=== PATIENT | female | born 1950 | race Two or more races ===

== ENCOUNTER → 2024-09-01 | Outpatient (CLI) | payer MEDICARE, MEDICAID, SELFPAY ==
--- NOTE | 2024-09-01 | XR_ITS ---
Examination: PA lateral chest 2 views TECHNIQUE: Upright PA lateral chest 2 views Exam date and time: September 01, 2024 11:25 AM Comparison 10/15/2022 INDICATIONS: Breast carcinoma diagnosis, coughing beginning 10 days ago FINDINGS: Stable blunting of the right lateral costophrenic angle Right axillary surgical clips Mild prominence left ventricle No interval pneumonia or pulmonary edema IMPRESSION: No interval pneumonia or pulmonary edema
== END | disposition home or self-care (01) ==
PROVIDERS: PCP Internal Medicine; Referring Provider Internal Medicine; Visit Provider Internal Medicine
DX: R05.9 Cough, unspecified (principal)
CPT/HCPCS: 71046

== ENCOUNTER → 2024-09-05 | Outpatient (CLI) | payer MEDICARE, MEDICAID, SELFPAY ==
[2024-09-05 11:20] LABS: Basophils % (Auto) 1 % (0-2.5); Eosinophils # (Auto) 0.2 Thou/mm3 (0.0-0.5); Eosinophils % (Auto) 3 % (0-10); Hematocrit 39.7 % (36.0-46.0); Immature Granulocytes % (Auto) 0 % (0-0); Immature Granulocytes Auto 0.01 Thou/mm3 (0.00-0.00); Lymphocytes # (Auto) 1.5 Thou/mm3 (1.0-4.8); Lymphocytes % (Auto) 26 % (10-50); Mean Corpuscular HGB Conc 32.7 g/dl (31.0-37.0); Mean Corpuscular Volume 101 fL (80-100); Monocytes # (Auto) 0.6 Thou/mm3 (0.0-0.8); Monocytes % (Auto) 10 % (0-12); Neutrophils # (Auto) 3.4 Thou/mm3 (1.8-7.7); Neutrophils % (Auto) 61 % (37-80); Nucleated Red Blood Cell % 0 /100 WBC (0); RDW Standard Deviation 57.3 fL (36.4-46.3); Red Blood Count 3.94 Miln/mm3 (4.00-5.20); White Blood Count 5.6 Thou/mm3 (3.6-11.0)
[2024-09-05 11:31] LABS: Platelet Count 56 Thou/mm3 (140-440)
[2024-09-05 11:37] LABS: Alanine Aminotransferase 34 U/L (10-49); Albumin, Serum 3.2 gm/dL (3.4-4.8); Albumin/Globulin Ratio 1.4 (1.2-2.2); Alkaline Phosphatase 147 U/L (46-116); Anion Gap 6 (7-16); Aspartate Amino Transferase 30 U/L (0-34); BUN/Creatinine Ratio 16 Ratio (12-20); Bilirubin,Total 1.5 mg/dL (0.3-1.2); Blood Urea Nitrogen 11 mg/dL (9-23); Calcium (Corrected) 9.6 mg/dL (8.5-10.1); Carbon Dioxide 28.3 mMol/L (20.0-31.0); Chloride 107 mMol/L (98-107); Creatinine (Component) 0.7 mg/dL (0.6-1.3); Globulin 2.3 gm/dL (2.3-3.5); Glucose 164 mg/dL (74-106); Osmolality,Calculated 284 (275-295); Potassium 4.9 mMol/L (3.4-5.1); Sodium 141 mMol/L (136-145); Total Protein 5.5 gm/dL (5.7-8.2); eGFR > 60 See Note
[2024-09-05 12:53] LABS: Slide Review Platelets confirmed
== END | disposition home or self-care (01) ==
LOC: SCTO 09:53
PROVIDERS: PCP Internal Medicine; Referring Provider Internal Medicine Hematology & Oncology; Visit Provider Internal Medicine Hematology & Oncology
DX: C50.311 Malignant neoplasm of lower-inner quadrant of right female breast (principal)
CPT/HCPCS: 36415; 80053; 85025

== ENCOUNTER 2024-09-08 08:52 | Outpatient (RCR) | payer MEDICARE, MEDICAID, SELFPAY | END 2024-09-26 23:59 | disposition home or self-care (01) | LOC: SCTC 08:52 | PROVIDERS: PCP Internal Medicine; Referring Provider Internal Medicine; Visit Provider Nurse Practitioner Family | DX: Z08 Encounter for follow-up examination after completed treatment for malignant neoplasm (principal); Z85.3 Personal history of malignant neoplasm of breast; Z90.11 Acquired absence of right breast and nipple; M81.0 Age-related osteoporosis without current pathological fracture; Z79.83 Long term (current) use of bisphosphonates; D69.6 Thrombocytopenia, unspecified; K74.60 Unspecified cirrhosis of liver; K76.0 Fatty (change of) liver, not elsewhere classified | CPT/HCPCS: 99212; G0463 ==

== ENCOUNTER → 2024-10-17 | Outpatient (CLI) | payer MEDICARE, MEDICAID, SELFPAY ==
[2024-10-17 10:13] LABS: Collection Type, Urine Clean Catch
[2024-10-17 10:38] LABS: Basophils # (Auto) 0.1 Thou/mm3 (0.0-0.2); Basophils % (Auto) 1 % (0-2.5); Eosinophils # (Auto) 0.2 Thou/mm3 (0.0-0.5); Eosinophils % (Auto) 3 % (0-10); Hemoglobin 12.7 g/dL (12.0-16.0); Immature Granulocytes % (Auto) 1 % (0-0); Immature Granulocytes Auto 0.03 Thou/mm3 (0.00-0.00); Lymphocytes # (Auto) 1.2 Thou/mm3 (1.0-4.8); Lymphocytes % (Auto) 24 % (10-50); Mean Corpuscular HGB Conc 33.4 g/dl (31.0-37.0); Mean Corpuscular Volume 99 fL (80-100); Monocytes # (Auto) 0.5 Thou/mm3 (0.0-0.8); Monocytes % (Auto) 9 % (0-12); Neutrophils # (Auto) 3.3 Thou/mm3 (1.8-7.7); Neutrophils % (Auto) 62 % (37-80); Nucleated Red Blood Cell % 0 /100 WBC (0); RDW Standard Deviation 54.4 fL (36.4-46.3); Red Blood Count 3.85 Miln/mm3 (4.00-5.20); White Blood Count 5.3 Thou/mm3 (3.6-11.0)
[2024-10-17 10:45] LABS: Glucose Estimated Average 157 mg/dL (80-131); Hemoglobin A1C 7.1 % Hgb (4.8-6.0)
[2024-10-17 10:48] LABS: Bilirubin,Urine Negative (Negative); Blood,Urine 2+ (Negative); Clarity,Urine Clear (Clear/Hazy); Color,Urine Yellow (Lt Yel-Yel); Glucose, Urine 4+ (Negative); Ketones,Urine Negative (Negative); Leukocyte Esterase,Urine Positive (Negative); Nitrite,Urine Negative (Negative); PH,Urine 6.5 (5.0-7.0); Protein,Urine Trace (Neg - Trace); RBC,Urine 11 /hpf (0-3); Specific Gravity,Urine 1.036 (1.001-1.035); Squamous Epithelial Cell,Urine 12 /hpf (0-5); WBC,Urine 15 /hpf (0-5)
[2024-10-17 10:55] LABS: Platelet Count 61 Thou/mm3 (140-440)
[2024-10-17 11:01] LABS: Alanine Aminotransferase 28 U/L (10-49); Albumin/Globulin Ratio 1.3 (1.2-2.2); Alkaline Phosphatase 150 U/L (46-116); Anion Gap 8 (7-16); Aspartate Amino Transferase 35 U/L (0-34); BUN/Creatinine Ratio 22 Ratio (12-20); Bilirubin,Direct 0.6 mg/dL (0.0-0.3); Bilirubin,Total 1.3 mg/dL (0.3-1.2); Blood Urea Nitrogen 13 mg/dL (9-23); Calcium 8.8 mg/dL (8.3-10.6); Calcium (Corrected) 9.6 mg/dL (8.5-10.1); Carbon Dioxide 27.4 mMol/L (20.0-31.0); Cardiac Risk Estimate 2.7 RATIO (3.7-5.6); Chloride 106 mMol/L (98-107); Cholesterol 130 mg/dL (132-200); Creatinine (Component) 0.6 mg/dL (0.6-1.3); Globulin 2.3 gm/dL (2.3-3.5); Glucose 177 mg/dL (74-106); HDL Cholesterol 48 mg/dL (40-60); LDL Cholesterol,Calculated 61 mg/dL (0-130); Osmolality,Calculated 285 (275-295); Potassium 4.9 mMol/L (3.4-5.1); Sodium 141 mMol/L (136-145); Total Protein 5.3 gm/dL (5.7-8.2); Triglycerides 103 mg/dL (30-150); eGFR > 60 See Note
[2024-10-17 11:10] LABS: Creatinine MALB Rnd Ur 96 mg/dL (30-125); Microalbumin, Random Urine < 3 mg/L (0-300)
[2024-10-17 11:43] LABS: Slide Review Platelets confirmed
== END | disposition home or self-care (01) ==
LOC: COPL 09:36
PROVIDERS: PCP Internal Medicine; Referring Provider Surgery; Visit Provider Surgery
DX: E11.9 Type 2 diabetes mellitus without complications (principal); I10 Essential (primary) hypertension; E78.5 Hyperlipidemia, unspecified; K75.81 Nonalcoholic steatohepatitis (NASH); K74.69 Other cirrhosis of liver; K76.82 Hepatic encephalopathy; K76.6 Portal hypertension
CPT/HCPCS: 36415; 80053; 80061; 81001; 82043; 82248; 82570; 83036; 85025

== ENCOUNTER → 2024-12-12 | Outpatient (CLI) | payer MEDICARE, MEDICAID, SELFPAY ==
[2024-12-12 12:29] LABS: Basophils % (Auto) 1 % (0-2.5); Eosinophils # (Auto) 0.2 Thou/mm3 (0.0-0.5); Eosinophils % (Auto) 4 % (0-10); Hemoglobin 12.5 g/dL (12.0-16.0); Immature Granulocytes % (Auto) 0 % (0-0); Immature Granulocytes Auto 0.01 Thou/mm3 (0.00-0.00); Lymphocytes % (Auto) 26 % (10-50); Mean Corpuscular HGB Conc 32.9 g/dl (31.0-37.0); Mean Corpuscular Hemoglobin 33.3 pg (25.0-35.0); Mean Corpuscular Volume 101 fL (80-100); Monocytes # (Auto) 0.4 Thou/mm3 (0.0-0.8); Monocytes % (Auto) 10 % (0-12); Neutrophils # (Auto) 2.3 Thou/mm3 (1.8-7.7); Neutrophils % (Auto) 59 % (37-80); Nucleated Red Blood Cell % 0 /100 WBC (0); RDW Standard Deviation 58.9 fL (36.4-46.3); Red Blood Count 3.75 Miln/mm3 (4.00-5.20)
[2024-12-12 12:38] LABS: Platelet Count 56 Thou/mm3 (140-440)
[2024-12-12 12:52] LABS: Alanine Aminotransferase 30 U/L (10-49); Albumin, Serum 3.2 gm/dL (3.4-4.8); Albumin/Globulin Ratio 1.5 (1.2-2.2); Alkaline Phosphatase 152 U/L (46-116); Anion Gap 6 (7-16); Aspartate Amino Transferase 44 U/L (0-34); BUN/Creatinine Ratio 19 Ratio (12-20); Bilirubin,Total 1.7 mg/dL (0.3-1.2); Blood Urea Nitrogen 13 mg/dL (9-23); Calcium 9.4 mg/dL (8.3-10.6); Carbon Dioxide 25.6 mMol/L (20.0-31.0); Chloride 113 mMol/L (98-107); Creatinine (Component) 0.7 mg/dL (0.6-1.3); Globulin 2.2 gm/dL (2.3-3.5); Glucose 183 mg/dL (74-106); Osmolality,Calculated 293 (275-295); Potassium 4.8 mMol/L (3.4-5.1); Sodium 145 mMol/L (136-145); Total Protein 5.4 gm/dL (5.7-8.2); eGFR > 60 See Note
[2024-12-12 13:03] LABS: Slide Review Platelets confirmed
== END | disposition home or self-care (01) ==
PROVIDERS: PCP Internal Medicine; Referring Provider Nurse Practitioner Family; Visit Provider Nurse Practitioner Family
DX: C50.311 Malignant neoplasm of lower-inner quadrant of right female breast (principal)
CPT/HCPCS: 36415; 80053; 85025

== ENCOUNTER 2024-12-15 15:31 | Outpatient (RCR) | payer MEDICARE, MEDICAID, SELFPAY | END 2024-12-24 23:59 | disposition home or self-care (01) | LOC: SCTC 15:31 | PROVIDERS: PCP Internal Medicine; Referring Provider Internal Medicine; Visit Provider Nurse Practitioner Family | DX: Z08 Encounter for follow-up examination after completed treatment for malignant neoplasm (principal); Z85.3 Personal history of malignant neoplasm of breast; Z90.11 Acquired absence of right breast and nipple; Z92.21 Personal history of antineoplastic chemotherapy; M81.0 Age-related osteoporosis without current pathological fracture; Z79.83 Long term (current) use of bisphosphonates; R05.3 Chronic cough; M54.50 Low back pain, unspecified; D69.6 Thrombocytopenia, unspecified; K74.60 Unspecified cirrhosis of liver | CPT/HCPCS: 99212; G0463 ==

== ENCOUNTER → 2024-12-18 | Outpatient (CLI) | payer MEDICARE, MEDICAID, SELFPAY ==
--- NOTE | 2024-12-18 10:10 | XR_ITS ---
Examination: PA lateral chest 2 views TECHNIQUE: Upright PA lateral chest 2 views Exam date and time: December 18, 2024 1051 hours INDICATIONS: Right-sided back pain chest pain several months diagnosis breast cancer FINDINGS: Mild prominence left ventricle Right axillary surgical clips Mild vascular congestion. No lobar pneumonia or pulmonary edema IMPRESSION: No lobar pneumonia or pulmonary edema
== END | disposition home or self-care (01) ==
PROVIDERS: PCP Internal Medicine; Referring Provider Nurse Practitioner Family; Visit Provider Nurse Practitioner Family
DX: R07.9 Chest pain, unspecified (principal); M54.9 Dorsalgia, unspecified; C50.311 Malignant neoplasm of lower-inner quadrant of right female breast
CPT/HCPCS: 71046

== ENCOUNTER → 2025-02-02 | Outpatient (CLI) | payer MEDICARE, MEDICAID, SELFPAY ==
[2025-02-02 10:46] LABS: Collection Type, Urine Clean Catch
[2025-02-02 11:17] LABS: Basophils % (Auto) 1 % (0-2.5); Eosinophils # (Auto) 0.2 Thou/mm3 (0.0-0.5); Eosinophils % (Auto) 4 % (0-10); Hematocrit 37.9 % (36.0-46.0); Hemoglobin 12.5 g/dL (12.0-16.0); Immature Granulocytes % (Auto) 0 % (0-0); Immature Granulocytes Auto 0.01 Thou/mm3 (0.00-0.00); Immature Reticulocyte Fraction 21.6 % (3.0-15.9); Lymphocytes # (Auto) 1.3 Thou/mm3 (1.0-4.8); Lymphocytes % (Auto) 28 % (10-50); Mean Corpuscular Hemoglobin 33.6 pg (25.0-35.0); Mean Corpuscular Volume 102 fL (80-100); Monocytes # (Auto) 0.4 Thou/mm3 (0.0-0.8); Monocytes % (Auto) 9 % (0-12); Neutrophils # (Auto) 2.6 Thou/mm3 (1.8-7.7); Neutrophils % (Auto) 58 % (37-80); Nucleated Red Blood Cell % 0 /100 WBC (0); RDW Standard Deviation 58.8 fL (36.4-46.3); Red Blood Count 3.72 Miln/mm3 (4.00-5.20); Reticulocyte % (Auto) 2.8 % (0.5-1.5); Reticulocyte Absolute Auto 104.5 Biln/L (25.0-75.0); Reticulocyte Hgb Content 35.8 pg (28.0-35.0); White Blood Count 4.5 Thou/mm3 (3.6-11.0)
[2025-02-02 11:20] LABS: Bacteria,Urine 1+; Bilirubin,Urine Negative (Negative); Blood,Urine 1+ (Negative); Clarity,Urine Clear (Clear/Hazy); Color,Urine Yellow (Lt Yel-Yel); Glucose, Urine 4+ (Negative); Ketones,Urine Negative (Negative); Leukocyte Esterase,Urine Positive (Negative); Nitrite,Urine Negative (Negative); Protein,Urine Negative (Neg - Trace); RBC,Urine 19 /hpf (0-3); Specific Gravity,Urine 1.039 (1.001-1.035); Squamous Epithelial Cell,Urine 5 /hpf (0-5); Urobilinogen,Urine Negative mg/dL (0.0-1.0); WBC,Urine 32 /hpf (0-5)
[2025-02-02 11:21] LABS: Alanine Aminotransferase 36 U/L (10-49); Albumin, Serum 3.2 gm/dL (3.4-4.8); Albumin/Globulin Ratio 1.4 (1.2-2.2); Alkaline Phosphatase 174 U/L (46-116); Anion Gap 10 (7-16); BUN/Creatinine Ratio 21 Ratio (12-20); Bilirubin,Total 1.3 mg/dL (0.3-1.2); Blood Urea Nitrogen 15 mg/dL (9-23); Calcium 9.3 mg/dL (8.3-10.6); Calcium (Corrected) 9.9 mg/dL (8.5-10.1); Cardiac Risk Estimate 2.7 RATIO (3.7-5.6); Chloride 110 mMol/L (98-107); Cholesterol 138 mg/dL (132-200); Creatinine (Component) 0.7 mg/dL (0.6-1.3); Globulin 2.3 gm/dL (2.3-3.5); Glucose 162 mg/dL (74-106); HDL Cholesterol 51 mg/dL (40-60); LDL Cholesterol,Calculated 70 mg/dL (0-130); Osmolality,Calculated 291 (275-295); Potassium 4.8 mMol/L (3.4-5.1); Sodium 144 mMol/L (136-145); Total Protein 5.5 gm/dL (5.7-8.2); Triglycerides 87 mg/dL (30-150); eGFR > 60 See Note
[2025-02-02 11:24] LABS: Folate 22.49 ng/mL (>5.38); Vitamin B12 1370 pg/mL (211-911)
[2025-02-02 11:25] LABS: Ferritin 12 ng/mL (7.3-270.7); Iron 88 mcg/dL (50-170); Percent Iron Saturation 22 % (20-55); Platelet Count 61 Thou/mm3 (140-440); Total Iron Binding Capacity 385 mcg/dL (250-425); Unsaturated Iron Binding 297 (225-295)
[2025-02-02 11:52] LABS: Glucose Estimated Average 160 mg/dL (80-131); Hemoglobin A1C 7.2 % Hgb (4.8-6.0)
[2025-02-02 12:04] LABS: Slide Review Platelets confirmed
== END | disposition home or self-care (01) ==
LOC: COPL 09:59 → SCTO 10:04
PROVIDERS: PCP Internal Medicine; Referring Provider Internal Medicine; Visit Provider Nurse Practitioner Family
DX: E11.9 Type 2 diabetes mellitus without complications (principal); I10 Essential (primary) hypertension; E78.5 Hyperlipidemia, unspecified; C50.311 Malignant neoplasm of lower-inner quadrant of right female breast
CPT/HCPCS: 36415; 80053; 80061; 81001; 82105; 82607; 82728; 82746; 83036; 83540; 83550; 85025; 85046

== ENCOUNTER 2025-02-03 10:30 | Outpatient (RCR) | payer MEDICARE, MEDICAID, SELFPAY | END 2025-02-23 23:59 | disposition home or self-care (01) | LOC: SCTC 10:30 | PROVIDERS: PCP Internal Medicine; Referring Provider Internal Medicine; Visit Provider Nurse Practitioner Family | DX: Z08 Encounter for follow-up examination after completed treatment for malignant neoplasm (principal); Z85.3 Personal history of malignant neoplasm of breast; Z90.11 Acquired absence of right breast and nipple; K74.60 Unspecified cirrhosis of liver; D69.6 Thrombocytopenia, unspecified; M54.9 Dorsalgia, unspecified | CPT/HCPCS: 99212; G0463 ==

== ENCOUNTER → 2025-03-04 | Outpatient (CLI) | payer MEDICARE, MEDICAID, SELFPAY ==
--- NOTE | 2025-03-04 09:53 | XR_ITS ---
Examination: Lumbar spine, 5 views Technique: Lumbar spine AP, lateral, coned lateral lower lumbar spine, bilateral obliques 5 views Exam date and time: March 04, 2025 0955 hours INDICATIONS: Low back pain beginning 3 months ago. FINDINGS: Suspicious for small gallstones Prominent osteopenia Diffuse facet arthropathy No lumbar fracture Diffuse lumbar degenerative disc disease, advanced L5-S1 IMPRESSION: Diffuse advanced lumbar degenerative disc disease, advanced L5-S1
[2025-03-04 11:53] LABS: Basophils # (Auto) 0.0 Thou/mm3 (0.0-0.2); Basophils % (Auto) 1 % (0-2.5); Eosinophils # (Auto) 0.2 Thou/mm3 (0.0-0.5); Eosinophils % (Auto) 4 % (0-10); Hematocrit 38.6 % (36.0-46.0); Hemoglobin 13.0 g/dL (12.0-16.0); Immature Granulocytes Auto 0.01 Thou/mm3 (0.00-0.00); Lymphocytes # (Auto) 1.2 Thou/mm3 (1.0-4.8); Lymphocytes % (Auto) 29 % (10-50); Mean Corpuscular HGB Conc 33.7 g/dl (31.0-37.0); Mean Corpuscular Hemoglobin 33.3 pg (25.0-35.0); Mean Corpuscular Volume 99 fL (80-100); Monocytes # (Auto) 0.5 Thou/mm3 (0.0-0.8); Monocytes % (Auto) 11 % (0-12); Neutrophils # (Auto) 2.3 Thou/mm3 (1.8-7.7); Neutrophils % (Auto) 55 % (37-80); Nucleated Red Blood Cell # 0.00 Thou/mm3 (0.00-0.00); Nucleated Red Blood Cell % 0 /100 WBC (0); RDW Standard Deviation 56.4 fL (36.4-46.3); Red Blood Count 3.90 Miln/mm3 (4.00-5.20); White Blood Count 4.2 Thou/mm3 (3.6-11.0)
[2025-03-04 11:54] LABS: Platelet Count 58 Thou/mm3 (140-440)
[2025-03-04 12:01] LABS: AFP Non-Pregnant 12.50 ng/mL (<8.10)
[2025-03-04 12:07] LABS: Alanine Aminotransferase 32 U/L (10-49); Albumin, Serum 3.4 gm/dL (3.4-4.8); Albumin/Globulin Ratio 1.4 (1.2-2.2); Alkaline Phosphatase 94 U/L (46-116); Anion Gap 10 (7-16); Aspartate Amino Transferase 44 U/L (0-34); BUN/Creatinine Ratio 14 Ratio (12-20); Bilirubin,Total 2.1 mg/dL (0.3-1.2); Blood Urea Nitrogen 11 mg/dL (9-23); Calcium 9.2 mg/dL (8.3-10.6); Calcium (Corrected) 9.7 mg/dL (8.5-10.1); Carbon Dioxide 24.9 mMol/L (20.0-31.0); Chloride 110 mMol/L (98-107); Creatinine (Component) 0.8 mg/dL (0.6-1.3); Globulin 2.5 gm/dL (2.3-3.5); Glucose 130 mg/dL (74-106); Osmolality,Calculated 290 (275-295); Potassium 5.0 mMol/L (3.4-5.1); Sodium 145 mMol/L (136-145); Total Protein 5.9 gm/dL (5.7-8.2); eGFR > 60 See Note
[2025-03-04 13:51] LABS: Slide Review Platelets confirmed
== END | disposition home or self-care (01) ==
LOC: CDIM 09:44 → SCTO 10:13
PROVIDERS: PCP Internal Medicine; Referring Provider Nurse Practitioner Family; Visit Provider Radiology Diagnostic Radiology
DX: M51.379 Other intervertebral disc degeneration, lumbosacral region without mention of lumbar back pain or lower extremity pain (principal); C50.311 Malignant neoplasm of lower-inner quadrant of right female breast
CPT/HCPCS: 36415; 72110; 80053; 82105; 85025

== ENCOUNTER 2025-03-05 10:31 | Outpatient (RCR) | payer MEDICARE, MEDICAID, SELFPAY | END 2025-03-26 23:59 | disposition home or self-care (01) | LOC: SCTC 10:31 | PROVIDERS: PCP Internal Medicine; Referring Provider Internal Medicine; Visit Provider Nurse Practitioner Family | DX: Z08 Encounter for follow-up examination after completed treatment for malignant neoplasm (principal); Z85.3 Personal history of malignant neoplasm of breast; D69.6 Thrombocytopenia, unspecified; K74.60 Unspecified cirrhosis of liver; K76.0 Fatty (change of) liver, not elsewhere classified; Z87.09 Personal history of other diseases of the respiratory system; M81.0 Age-related osteoporosis without current pathological fracture; M51.360 Other intervertebral disc degeneration, lumbar region with discogenic back pain only; K80.20 Calculus of gallbladder without cholecystitis without obstruction | CPT/HCPCS: 99213; G0463 ==

== ENCOUNTER → 2025-03-16 | Outpatient (CLI) | payer MEDICARE, MEDICAID, SELFPAY ==
--- NOTE | 2025-03-16 10:16 | XR_ITS ---
Examination: Abdomen sonogram, complete Date and time of exam: March 16, 2025 1033 hours INDICATIONS: Diagnosis cirrhosis. Technique: Multiple real-time grayscale transabdominal sonographic images of the abdomen have been obtained. Findings: Cholelithiasis, normal gallbladder wall. Normal common bile duct 0.4 cm Pancreatic head 2.1 cm Aorta not enlarged. Liver 13.9 cm irregular contour right lobe liver lesion 4.0 x 4.5 x 4.1 cm Normal hepatopedal portal venous flow Patent IVC Right kidney 8.7 cm cortex 1.6 cm Left kidney 10.4 cm cortex 2.1 cm Spleen 11.9 cm IMPRESSION: Cholelithiasis, negative for cholecystitis Cirrhosis, right lobe liver lesion 4.0 x 4.5 x 4.1 cm, recommend MRI abdomen liver follow-up pre and postcontrast to assess this liver lesion, differential would include primary hepatocellular carcinoma, hepatic metastasis
== END | disposition home or self-care (01) ==
PROVIDERS: PCP Internal Medicine; Referring Provider Internal Medicine; Visit Provider Internal Medicine
DX: K80.20 Calculus of gallbladder without cholecystitis without obstruction (principal); K74.60 Unspecified cirrhosis of liver; K76.9 Liver disease, unspecified; Z86.0101 Personal history of adenomatous and serrated colon polyps; Z83.719 Family history of colon polyps, unspecified
CPT/HCPCS: 76700

== ENCOUNTER → 2025-03-17 | Outpatient (CLI) | payer MEDICARE, MEDICAID, SELFPAY ==
--- NOTE | 2025-03-17 15:00 | XR_ITS ---
Examination: CT chest with intravenous contrast CT abdomen with intravenous contrast CT pelvis with intravenous contrast CT chest without intravenous contrast CT abdomen without intravenous contrast CT pelvis without intravenous contrast 2-D coronal and sagittal reconstructions Time of exam: March 17, [address] chest December 23, 2022, CT abdomen pelvis December 22, 2022 INDICATIONS: Diagnosis malignant neoplasm right inner quadrant breast, history cirrhosis, mastectomy 2017, restaging CTDI: vol (mGy) : 20.5 DLP: (mGycm): 1355 Technique: Multiple axial images of the chest, abdomen and pelvis with intravenous contrast, 3.0 mm slice thickness. Images obtained post intravenous injection Isovue 370 60 cc. 2-D sagittal and coronal reconstructions. Low dose protocols were performed. One or more of the following dose reduction techniques were used; automated exposure control, adjustment of the mA and/or KV according to patient size, use of iterative reconstruction technique. Findings: No thoracic aortic aneurysm dilatation No pulmonary artery filling defects Mild enlargement cardiac contour. No paratracheal tracheobronchial or bronchopulmonary adenopathy. No chest wall breast mass No axillary lymphadenopathy No pneumonia, pulmonary edema pulmonary nodules Cirrhosis, liver nodular in contour, mild splenomegaly Cholelithiasis No pancreatic or adrenal mass No hydronephrosis renal or ureteral calculi Aorta normal size Normal appendix No bowel obstruction No abdominal or pelvic lymphadenopathy No bladder mass Severe osteopenia Advanced disc narrowing L5-S1 IMPRESSION: No interval metastatic disease
== END | disposition home or self-care (01) ==
LOC: CCTX 14:31
PROVIDERS: Referring Provider Nurse Practitioner Family; Visit Provider Nurse Practitioner Family
DX: C50.311 Malignant neoplasm of lower-inner quadrant of right female breast (principal)
CPT/HCPCS: 71270; 74178; A4649; Q9967

== ENCOUNTER → 2025-04-01 | Outpatient (CLI) | payer MEDICARE, MEDICAID, SELFPAY ==
[2025-04-01 11:56] LABS: Basophils # (Auto) 0.0 Thou/mm3 (0.0-0.2); Basophils % (Auto) 1 % (0-2.5); Eosinophils # (Auto) 0.2 Thou/mm3 (0.0-0.5); Eosinophils % (Auto) 3 % (0-10); Hematocrit 40.1 % (36.0-46.0); Hemoglobin 13.4 g/dL (12.0-16.0); INR 1.2 (0.9-1.3); Immature Granulocytes Auto 0.02 Thou/mm3 (0.00-0.00); Immature Reticulocyte Fraction 22.0 % (3.0-15.9); Lymphocytes # (Auto) 1.0 Thou/mm3 (1.0-4.8); Lymphocytes % (Auto) 20 % (10-50); Mean Corpuscular HGB Conc 33.4 g/dl (31.0-37.0); Mean Corpuscular Hemoglobin 33.0 pg (25.0-35.0); Mean Corpuscular Volume 99 fL (80-100); Monocytes # (Auto) 0.5 Thou/mm3 (0.0-0.8); Monocytes % (Auto) 10 % (0-12); Neutrophils # (Auto) 3.3 Thou/mm3 (1.8-7.7); Neutrophils % (Auto) 66 % (37-80); Nucleated Red Blood Cell # 0.00 Thou/mm3 (0.00-0.00); Nucleated Red Blood Cell % 0 /100 WBC (0); Prothrombin Time 12.5 Seconds (9.0-12.2); RDW Standard Deviation 56.1 fL (36.4-46.3); Red Blood Count 4.06 Miln/mm3 (4.00-5.20); Reticulocyte % (Auto) 2.8 % (0.5-1.5); Reticulocyte Absolute Auto 112.1 Biln/L (25.0-75.0); Reticulocyte Hgb Content 39.2 pg (28.0-35.0); White Blood Count 5.1 Thou/mm3 (3.6-11.0)
[2025-04-01 12:08] LABS: Platelet Count 60 Thou/mm3 (140-440)
[2025-04-01 12:12] LABS: Anion Gap 10 (7-16); Blood Urea Nitrogen 14 mg/dL (9-23); Carbon Dioxide 23.9 mMol/L (20.0-31.0); Chloride 108 mMol/L (98-107); Creatinine (Component) 0.7 mg/dL (0.6-1.3); Potassium 4.4 mMol/L (3.4-5.1); Sodium 142 mMol/L (136-145)
[2025-04-01 12:13] LABS: Alanine Aminotransferase 39 U/L (10-49); Albumin, Serum 3.6 gm/dL (3.4-4.8); Albumin/Globulin Ratio 1.5 (1.2-2.2); Alkaline Phosphatase 108 U/L (46-116); Aspartate Amino Transferase 50 U/L (0-34); BUN/Creatinine Ratio 20 Ratio (12-20); Bilirubin,Total 2.0 mg/dL (0.3-1.2); Calcium 9.7 mg/dL (8.3-10.6); Calcium (Corrected) 10.0 mg/dL (8.5-10.1); Globulin 2.4 gm/dL (2.3-3.5); Glucose 138 mg/dL (74-106); LDH (Lactate Dehydrogenase) 220 U/L (120-246); Osmolality,Calculated 285 (275-295); Total Protein 6.0 gm/dL (5.7-8.2); eGFR > 60 See Note
[2025-04-01 12:19] LABS: AFP Non-Pregnant 16.80 ng/mL (<8.10); Vitamin B12 1528 pg/mL (211-911)
[2025-04-01 12:22] LABS: Ferritin 13 ng/mL (7.3-270.7); Iron 126 mcg/dL (50-170); Percent Iron Saturation 29 % (20-55); Total Iron Binding Capacity 429 mcg/dL (250-425); Unsaturated Iron Binding 303 (225-295)
[2025-04-01 13:54] LABS: Slide Review Platelets confirmed
[2025-04-07 07:40] LABS: Haptoglobin* <10 mg/dL (43-212)
== END | disposition home or self-care (01) ==
LOC: COPL 10:50
PROVIDERS: PCP Internal Medicine; Referring Provider Internal Medicine; Visit Provider Nurse Practitioner Family
DX: C50.311 Malignant neoplasm of lower-inner quadrant of right female breast (principal); K75.81 Nonalcoholic steatohepatitis (NASH); K74.60 Unspecified cirrhosis of liver; K76.6 Portal hypertension; E66.811 Obesity, class 1; Z83.719 Family history of colon polyps, unspecified; Z86.0101 Personal history of adenomatous and serrated colon polyps
CPT/HCPCS: 36415; 80053; 82105; 82607; 82728; 83010; 83540; 83550; 83615; 85025; 85046; 85610

== ENCOUNTER 2025-04-14 10:00 | Outpatient (RCR) | payer MEDICARE, MEDICAID, SELFPAY | END 2025-04-26 23:59 | disposition home or self-care (01) | LOC: SCTC 10:00 | PROVIDERS: PCP Internal Medicine; Referring Provider Internal Medicine; Visit Provider Nurse Practitioner Family | DX: Z08 Encounter for follow-up examination after completed treatment for malignant neoplasm (principal); Z85.3 Personal history of malignant neoplasm of breast; Z92.21 Personal history of antineoplastic chemotherapy; Z90.11 Acquired absence of right breast and nipple; M81.0 Age-related osteoporosis without current pathological fracture; K74.60 Unspecified cirrhosis of liver; R16.1 Splenomegaly, not elsewhere classified; K76.89 Other specified diseases of liver; Z87.09 Personal history of other diseases of the respiratory system; Z86.16 Personal history of COVID-19; M51.360 Other intervertebral disc degeneration, lumbar region with discogenic back pain only; L98.8 Other specified disorders of the skin and subcutaneous tissue | CPT/HCPCS: 99213; G0463 ==

== ENCOUNTER → 2025-06-03 | Outpatient (CLI) | payer MEDICARE, MEDICAID, SELFPAY ==
[2025-06-03 11:10] LABS: Collection Type, Urine Clean Catch
[2025-06-03 11:35] LABS: Basophils # (Auto) 0.0 Thou/mm3 (0.0-0.2); Basophils % (Auto) 1 % (0-2.5); Eosinophils # (Auto) 0.2 Thou/mm3 (0.0-0.5); Eosinophils % (Auto) 4 % (0-10); Hematocrit 39.5 % (36.0-46.0); Hemoglobin 13.0 g/dL (12.0-16.0); Immature Granulocytes Auto 0.01 Thou/mm3 (0.00-0.00); Lymphocytes # (Auto) 1.1 Thou/mm3 (1.0-4.8); Lymphocytes % (Auto) 24 % (10-50); Mean Corpuscular HGB Conc 32.9 g/dl (31.0-37.0); Mean Corpuscular Hemoglobin 33.1 pg (25.0-35.0); Mean Corpuscular Volume 101 fL (80-100); Monocytes # (Auto) 0.5 Thou/mm3 (0.0-0.8); Monocytes % (Auto) 11 % (0-12); Neutrophils # (Auto) 2.7 Thou/mm3 (1.8-7.7); Neutrophils % (Auto) 60 % (37-80); Nucleated Red Blood Cell # 0.00 Thou/mm3 (0.00-0.00); Nucleated Red Blood Cell % 0 /100 WBC (0); RDW Standard Deviation 59.6 fL (36.4-46.3); Red Blood Count 3.93 Miln/mm3 (4.00-5.20); White Blood Count 4.5 Thou/mm3 (3.6-11.0)
[2025-06-03 11:40] LABS: Glucose Estimated Average 146 mg/dL (80-131); Hemoglobin A1C 6.7 % Hgb (4.8-6.0)
[2025-06-03 11:41] LABS: Bacteria,Urine Rare; Bilirubin,Urine Negative (Negative); Blood,Urine 2+ (Negative); Color,Urine Yellow (Lt Yel-Yel); Glucose, Urine 4+ (Negative); Ketones,Urine Negative (Negative); Leukocyte Esterase,Urine Positive (Negative); Nitrite,Urine Positive (Negative); PH,Urine 6.5 (5.0-7.0); Protein,Urine Trace (Neg - Trace); RBC,Urine 21 /hpf (0-3); Specific Gravity,Urine 1.020 (1.001-1.035); Squamous Epithelial Cell,Urine 1 /hpf (0-5); Urobilinogen,Urine Negative mg/dL (0.0-1.0); WBC,Urine 228 /hpf (0-5)
[2025-06-03 11:43] LABS: Clarity,Urine Hazy (Clear/Hazy)
[2025-06-03 11:44] LABS: Platelet Count 56 Thou/mm3 (140-440)
[2025-06-03 11:46] LABS: Creatinine MALB Rnd Ur 90 mg/dL (30-125); Microalbumin Creat Ratio 31 mg/gCrea (<30); Microalbumin, Random Urine 28 mg/L (0-300)
[2025-06-03 11:54] LABS: Alanine Aminotransferase 35 U/L (10-49); Albumin, Serum 3.4 gm/dL (3.4-4.8); Albumin/Globulin Ratio 1.5 (1.2-2.2); Alkaline Phosphatase 110 U/L (46-116); Anion Gap 6 (7-16); Aspartate Amino Transferase 45 U/L (0-34); BUN/Creatinine Ratio 16 Ratio (12-20); Bilirubin,Total 1.8 mg/dL (0.3-1.2); Blood Urea Nitrogen 11 mg/dL (9-23); Calcium 9.6 mg/dL (8.3-10.6); Calcium (Corrected) 10.1 mg/dL (8.5-10.1); Carbon Dioxide 27.0 mMol/L (20.0-31.0); Cardiac Risk Estimate 2.6 RATIO (3.7-5.6); Chloride 110 mMol/L (98-107); Cholesterol 126 mg/dL (132-200); Creatinine (Component) 0.7 mg/dL (0.6-1.3); Globulin 2.2 gm/dL (2.3-3.5); Glucose 137 mg/dL (74-106); HDL Cholesterol 49 mg/dL (40-60); LDL Cholesterol,Calculated 60 mg/dL (0-130); Osmolality,Calculated 286 (275-295); Potassium 5.1 mMol/L (3.4-5.1); Sodium 143 mMol/L (136-145); Thyroid Stimulating Hormone 3.74 uIU/mL (0.55-4.78); Total Protein 5.6 gm/dL (5.7-8.2); Triglycerides 85 mg/dL (30-150); eGFR > 60 See Note
[2025-06-03 13:06] LABS: Slide Review Platelets confirmed
== END | disposition home or self-care (01) ==
LOC: COPL 10:21
PROVIDERS: PCP Internal Medicine; Referring Provider Internal Medicine; Visit Provider Internal Medicine
DX: E11.9 Type 2 diabetes mellitus without complications (principal); I10 Essential (primary) hypertension; E78.5 Hyperlipidemia, unspecified; D12.6 Benign neoplasm of colon, unspecified; K74.69 Other cirrhosis of liver; K76.6 Portal hypertension; K75.81 Nonalcoholic steatohepatitis (NASH); E66.811 Obesity, class 1; K57.30 Diverticulosis of large intestine without perforation or abscess without bleeding; Z83.719 Family history of colon polyps, unspecified; Z86.0101 Personal history of adenomatous and serrated colon polyps; D50.8 Other iron deficiency anemias; K76.82 Hepatic encephalopathy; R16.0 Hepatomegaly, not elsewhere classified
CPT/HCPCS: 36415; 80053; 80061; 81001; 82043; 82570; 83036; 84443; 85025

== ENCOUNTER → 2025-06-03 | Outpatient (CLI) | payer MEDICARE, MEDICAID, SELFPAY ==
--- NOTE | 2025-06-03 13:00 | XR_ITS ---
Examination: Breast ultrasound, unilateral, left complete Date and time of exam: June 03, 2025, 12:53 p.m. 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 Findings: 1:00 cyst 3 x 5 mm 1:00 calcification 4 x 3 mm 5:00 cyst 2 x 3 mm IMPRESSION: BI-RADS Category 2: Benign findings
--- NOTE | 2025-06-03 13:30 | XR_ITS ---
Examination: Screening digital mammography, unilateral left Computer aided detection 3-D breast Tomosynthesis, unilateral Date and time of exam: June 03, 2025, 1305 hours, compared to mammograms dating to February 07, 2021 Indication: Screening Technique: Nonmagnified MLO, CC views of the left breast to been obtained, reconstructed from 3-D Tomosynthesis images. R2 computer aided detection program utilized for evaluation of suspicious masses and/or abnormal calcifications. 3-D Tomosynthesis images obtained. Findings: The breast is heterogeneously dense, which may obscure small masses Numerous benign calcifications No interval suspicious masses Impression: BI-RADS category II Benign findings Recommend 1 year follow-up mammogram.
== END | disposition home or self-care (01) ==
LOC: CDIM 12:35
PROVIDERS: Referring Provider Nurse Practitioner Family; Visit Provider Nurse Practitioner Family
DX: Z12.31 Encounter for screening mammogram for malignant neoplasm of breast (principal); R92.322 Mammographic fibroglandular density, left breast; R92.1 Mammographic calcification found on diagnostic imaging of breast; C50.311 Malignant neoplasm of lower-inner quadrant of right female breast
CPT/HCPCS: 76641; 77063; 77067

== ENCOUNTER 2025-07-05 02:50 | Inpatient (IN) | payer MEDICARE, MEDICAID, SELFPAY ==
[2025-07-05] VITALS (198 sets, daily range): BP systolic 52–186; BP diastolic 33–99; PULSE 15–120; RESP 11–35; TEMP 34.3–37.3; O2SAT 86–100; BMI 28.3
--- NOTE | 2025-07-05 03:11 | EKG_ITS ---
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: : 1950 Requested By: Eh Mccann Order Number: [id number] Reading MD: Eh Mccann Measurements Intervals [place] Rate: 73 P: 4 TN: 123 QRS: -5 QRSD: 80 T: -7 QT: 384 QTc: 425 Interpretive Statements SINUS RHYTHM LOW QRS VOLTAGE IN PRECORDIAL LEADS [QRS DEFLECTION < 1.0 mV IN CHEST LEADS] MODERATE VOLTAGE CRITERIA FOR LVH, CONSIDER NORMAL VARIANT [MEETS CRITERIA IN ONE OF: R(aVL), S(V1), R(V5), R(V5/V6)+S(V1)] POSSIBLE ANTERIOR MYOCARDIAL INFARCTION , OF INDETERMINATE AGE [30 ms Q WAVE IN V3/V4, OR R < 0.2 mV IN V4] Compared to ECG 02/20/2019 15:14:02 Low QRS voltage now present Myocardial infarct finding now present ST (T wave) deviation no longer present /store/S0/[id number].pdf
--- NOTE | 2025-07-05 03:11 | XR_ITS ---
EXAMINATION: AP chest single view TECHNIQUE: AP portable semiupright chest single view Date and time: July 05, 2025, 0348 hours, comparison December 18, 2024 INDICATION: Chest pain shortness of breath beginning 2 days ago. FINDINGS: Mild prominence left ventricle Moderate vascular congestion Atelectasis versus mild pneumonia right base Prominent osteopenia IMPRESSION: Atelectasis versus mild pneumonia right base, clinical correlation advised
[2025-07-05] MEDS: SODIUM CHLORIDE 0.9% 1000 ML 1,000 ML 999 ML IV ×3 (03:23→11:17)
[2025-07-05 03:42] LABS: Lactate (Lactic Acid) 4.9 mMol/L (0.4-2.0)
[2025-07-05 03:53] LABS: Basophils # (Auto) 0.1 Thou/mm3 (0.0-0.2); Basophils % (Auto) 1 % (0-2.5); Eosinophils # (Auto) 0.2 Thou/mm3 (0.0-0.5); Eosinophils % (Auto) 3 % (0-10); Hematocrit 29.4 % (36.0-46.0); Hemoglobin 9.7 g/dL (12.0-16.0); Immature Granulocytes Auto 0.13 Thou/mm3 (0.00-0.00); Lymphocytes # (Auto) 3.0 Thou/mm3 (1.0-4.8); Lymphocytes % (Auto) 32 % (10-50); Mean Corpuscular HGB Conc 33.0 g/dl (31.0-37.0); Mean Corpuscular Hemoglobin 32.9 pg (25.0-35.0); Mean Corpuscular Volume 100 fL (80-100); Monocytes # (Auto) 0.6 Thou/mm3 (0.0-0.8); Monocytes % (Auto) 6 % (0-12); Neutrophils # (Auto) 5.2 Thou/mm3 (1.8-7.7); Neutrophils % (Auto) 57 % (37-80); Nucleated Red Blood Cell # 0.00 Thou/mm3 (0.00-0.00); Nucleated Red Blood Cell % 0 /100 WBC (0); Platelet Count 93 Thou/mm3 (140-440); RDW Standard Deviation 58.8 fL (36.4-46.3); Red Blood Count 2.95 Miln/mm3 (4.00-5.20); White Blood Count 9.2 Thou/mm3 (3.6-11.0)
--- NOTE | 2025-07-05 04:00 | EDNOTE_ITS ---
ED Weakness RME/HPI General Chief complaint: Weakness Stated complaint: WEAKNESS Time Seen by Provider: 07/05/25 03:00 Arrival date/time: 07/05/25 02:50 RME / HPI RME / HPI Narrative: DR. WU MAIN ED EVALUATION: Patient presenting with weakness onset approximately 1:30 AM. Son had taken serial BP measurements with gradual reduction down to the 70's systolic range. No antecedent fever, chills, cough, or URI. PMH: HLD, Cardiac Arrhythmia, Atrial Fibrillation, Hypercholesterolemia, Edema, Hypertension, Asthma, Cirrhosis, Gastroesophageal Reflux Disease, Obesity, Breast Cancer, Osteoporosis, Cataracts, Diabetes Mellitus Type 2, Anemia, Ocassional UTI PSH: Angiogram x2, Tonsillectomy, Mastectomy, Tubal Ligation and Section Allergies: NKDA Social: Non-smoker, Non-drinker, No illicit drug abuse Related Data Home Medications ?Medication ?Instructions ?Recorded ?Confirmed albuterol sulfate 90 mcg/actuation 2 puff inhalation Q 6HR PRN 04/26/16 07/06/25 aerosol inhaler (Proventil HFA) WHEEZING #0 inhalation s sitagliptin phosphate 50 mg tablet 50 mg PO QDAY #0 ta bs 09/10/17 07/06/25 (Januvia) alendronate 70 mg tablet 70 mg PO QWEEK 09/04/1806/27 lactulose 10 gram/15 mL oral 30 ml PO EVERYOTHERDAY 07/06/25 solution (Constulose) omeprazole 40 mg capsule,delayed 40 mg PO EVERYOTHERDA Y 09/04/18 07/06/25 release montelukast 10 mg tablet 10 mg PO DAILY 02/20/1906/27 atorvastatin 10 mg tablet 10 mg PO DAILY 12/22/2206/27 dapagliflozin propanediol 5 mg 5 mg PO DAILY 12/22/22 07/06/25 tablet (Farxiga) metoprolol succinate 25 mg 25 mg PO DAILY 12/22/2206/20 tablet,extended release 24 hr tamoxifen 20 mg tablet 20 mg PO DAILY 12/22/2206/27 budesonide-formoterol HFA 160 2 puff inhalation Q12H 1 09/05/24 07/06/25 mcg-4.5 mcg/actuation aerosol inhaler (Breyna) calcium carbonate 200 mg calcium 1 tab PO QDAY 5 07/06/25 (500 mg)-vitamin D3 400 unit tablet furosemide 20 mg tablet 20 mg PO .48hr 07/06/2506/27 spironolactone 50 mg tablet 50 mg PO EVERYOTHERDAY 06/2007/06/25 Allergies Allergy/AdvReac Type Severity Reaction Status Date / Time No Known Allergies Allergy Verified 12/21/22 22:56 Review of Systems Review of Systems Systems Reviewed: All systems reviewed, normal except as documented Past Medical History Past Medical History CARDIAC: Positive Cardiac Disorders (HLD), Cardiac Arrhythmia, Atrial Fibrillation, Hypercholesterolemia, Edema and Hypertension RESPIRATORY: Positive Asthma and Bronchitis GASTROINTESTINAL: Positive Gastrointestinal Disorders, Cirrhosis, Gastroesophageal Reflux Disease and Obesity REPRODUCTIVE: Positive Breast Cancer and Previous Pregnancies MUSCULOSKELETAL: Positive Osteoporosis ENT: Positive Cataracts (BILATERAL EYES) ENDOCRINE: Positive Diabetes Mellitus Type 2 HEMATOLOGIC: Positive Anemia (DURING CHEMO) and Clotting Problems OTHER HISTORY: Positive Hospitalization, Shingles, Blood Transfusions, Anesthesia Reactions, Chemotherapy, Chicken Pox, Cancer and Breast Cancer Family History FAMILY HISTORY: Positive Family Respiratory Disorders, Family Cardiac Disorders, Family Gastrointestinal Problems and Family Cancer Surgical History SURGICAL: Positive Angiogram (2016, 2022), Tonsillectomy, Mastectomy, Tubal Ligation and Section ED Exam Narrative Physical exam: GEN. APPEARANCE: The patient is alert awake oriented X-3 under no distress, lying down comfortably, does not look ill/toxic. Patient has good eye contact. Patient is able to follow simple commands. Appropriately interactive. VITALS: All vitals were reviewed and the pulse ox is 99%, which is normal according to my interpretation HEENT: Normocephalic, atraumatic and nontender. Pupils are equal and reactive. Oral mucosa is moist. NECK: Supple, nontender, no meningismus, no JVD. There is no thyromegaly and no lymphadenopathy. CHEST: Nontender on palpation no deformity and no crepitus. CARDIOVASCULAR: Heart regular rhythm, no murmur or gallop rub or extra beats. LUNGS: Clear to auscultation bilaterally with symmetrical chest rise. No laboring tachypnea or wheezing. No intercostal subcostal retraction. No rales and no rhonchi. ABDOMEN: Soft, flat, nontender to palpation, no guarding or rebound tenderness. There are no abnormal masses palpated. No pulsatile masses or bruits. Active and normal bowel sounds. EXTREMITIES: Normal inspection and palpation. No edema. No cyanosis. Patient is able to move all 4 extremities well SKIN: Warm and dry, no rashes noted. Slightly jaundiced. MUSCULOSKELETAL: No lumbar or midline bony tenderness. There is no CVA tenderness. No paraspinal muscle spasm or tenderness. NEURO: Cranial nerves II through XII grossly intact. There are no focal neurologic deficits noted. GCS is 15 PSYCHIATRIC: Patient is in normal mood and affect, cooperative. LYMPHATICS: No major lymphadenopathy noted. Course Quality Measures Current suspected stage: septic shock (LA >4 and/or hypotension) Sepsis reassessment completed at (date): 07/05/25 (0330) Sepsis reassessment completed at (time): 05:30 Possible source: unknown Blood cultures ordered: yes Antibiotic ordered: Yes Pertinent labs: 07/05/25 07/05/25 03:25 06:55 Lactic Acid 4.9 H* mMol/L 7.6 H* mMol/L (0.4-2.0) (0.4-2.0) sepsis Orders Category Date Time Status EKG (ED ONLY) *Do not use* NOW Care 07/05/25 03:11 Completed Emergency Titration Protocol Stat Care 07/05/25 05:41 Ordered Insert IV NOW Care 07/05/25 03:09 Completed EKG (ED Only) Stat Exams 07/05/25 03:11 Draft XR chest 1V portable Stat Exams 07/05/25 03:11 Completed Ammonia Stat Lab 07/05/25 05:10 Completed Blood Culture (Lab) Stat Lab 07/05/25 03:39 Results CBC Stat Lab 07/05/25 03:39 Completed CMP [Comprehensive Metabolic Panel] Stat Lab 07/05/25 03:39 Completed Hemoglobin and Hematocrit Stat Lab 07/05/25 06:55 Completed Influenza A & B Rapid Panel Stat Lab 07/05/25 07:35 Completed LDH (Lactate Dehydrogenase) Stat Lab 07/05/25 03:39 Completed LVDS Pheresis Plts [id number] Stat Lab 07/05/25 06:55 Results Lactic Acid [Lactate (Lactic Acid)] Stat Lab 07/05/25 03:25 Completed Lactic Acid, 3 HR Stat Lab 07/05/25 06:55 Completed PT [Prothrombin Time with INR] Routine Lab 07/05/25 05:10 Completed Troponin I Stat Lab 07/05/25 03:39 Completed Type and Screen Stat Lab 07/05/25 06:55 Results UA, C/S IF [Urinalysis, C/S if Indicated] Stat Lab 07/05/25 11:34 Completed Albumin Human-Kjda 25% Ivpb [Albuminex 25% Ivpb] Med 07/05/25 06:08 Discontinued 25 gm in 100 ml IV X1 Norepinephrine/D5W 8mg/250ml [Levophed in D5W 8mg/250ml Med 07/05/25 04:16 Discontinued ] 8 mg in 250 ml IV 0.05 mcg/kg/min Ondansetron Inj [Zofran Inj] Med 07/05/25 03:00 Discontinued 4 mg IVP X1 ONE Ondansetron Inj [Zofran Inj] Med 07/05/25 06:06 Discontinued 4 mg IVP X1 ONE Piper/Tazo 3.375 gm Premix [Zosyn] Med 07/05/25 04:00 Discontinued 3.375 gm in 50 ml IV X1 Sodium Chloride 0.9% 1000 ml [Ns] 1,000 ml Med 07/05/25 04:19 Discontinued IV 200 mls/hr Sodium Chloride 0.9% 1000 ml [Ns] 1,000 ml Med 07/05/25 03:11 Discontinued IV 999 mls/hr Sodium Chloride 0.9% 1000 ml [Ns] 1,000 ml Med 07/05/25 04:00 Discontinued IV 999 mls/hr Sodium Chloride 0.9% 1000 ml [Ns] 1,000 ml Med 07/05/25 04:01 Discontinued IV 999 mls/hr Sodium Chloride 0.9% 1000 ml [Ns] 1,000 ml Med 07/05/25 04:19 Discontinued IV Q10H fentaNYL INJ [Sublimaze Inj] Med 07/05/25 03:00 Discontinued 25 mcg IVP X1 ONE Vital Signs Vital signs: Vital Signs Pulse Rate 78 07/05/25 02:58 Respiratory Rate 20 07/05/25 02:58 Blood Pressure 77/43 L 07/05/25 02:58 Pulse Oximetry (%) 99 07/05/25 02:58 Oxygen Delivery Method Room Air 07/05/25 02:58 Weakness MDM Narrative MDM Narrative:: Scribe Attestation: I, Jenniffer Fontaine, am scribing for and in the presence of Dr. Thorne. Provider Notation: Although this document has been carefully reviewed, there may still be some phonetic and other typographical errors. These errors are purely grammatical due to imperfections in the software program and should not be co nstrued in any way to compromise the substance of the patient's medical care during this visit. Patient presenting with weakness onset approximately 1:30 AM. Son had taken serial BP measurements with gradual reduction down to the 70's systolic range. Please see PE findings. Laboratory markers normal WBC. Patient anemic with hemoglobin of 9.7, baseline of 13. Mild thrombocytopenia, no bandemia. Serum chemistries demonstrates elevated Lactic of 4.9. Elevated Chloride of 102 with normal renal function. Mildly elevated blood sugar of 270. Attempts to obtain urine via straight cath unsuccessful due to profound dehydration. CXR obtained normal cardiac silhouette, no definite signs of infiltrate or consolidation. Patient placed on residential monitor, and remained hypotensive with systolic blood pressure between 50 and 70, prompting further titration of Levophed upward. No obvious source of infection identified. Will consider advanced imaging of the abdomen/pelvis. Patient remained hypotenstive throughout ED course despite titration of Levophed upward. Will discuss with hospitalist for consideration of admission. Patient data External records reviewed:: [facility] previous records (Reviewed prior ED records from 12/21/22. Patient was seen for Cystitis.) and EMS form Clinical information provided by:: patient and EMS Social determinants that could affect healthcare access:: none Patient has the following chronic illnesses:: HLD, Cardiac Arrhythmia, Atrial Fibrillation, Hypercholesterolemia, Edema, Hypertension, Asthma, Cirrhosis, Gastroesophageal Reflux Disease, Obesity, Breast Cancer, Osteoporosis, Cataracts, Diabetes Mellitus Type 2, Anemia How is presenting disease/condition affected by chronic disease/condition?: exacerbated by Evaluation data The following diagnostics were reviewed and interpreted by me:: lab results, radiology exam(s) and EKG tracing(s) (EKG demonstrates sinus rhythm with rate of [address] segment changes, no ventricular ectopy, axis leftward, evidence of anterior septal wall SD, per my interpretation.) Lab and/or radiology exams considered but not ordered:: None Interpretation Summary: RADIOLOGY Chest X-Ray: Pending official radiology report. Medications / Prescriptions Medications or Prescriptions considered but not ordered:: None Medication administrations:: Medication Administration History Discontinued Medications Acetaminophen (Acetaminophen 325 Mg Tablet) 650 mg PO Q6H PRN PRN Reason: Fever >100.5 or pain 1-3 Stop: 08/04/25 07:45 Azithromycin (Azithromycin 250 Mg Tablet) 500 mg PO QDAY [facility] Stop: 07/07/25 11:14 Last Admin: 07/05/25 11:51 Dose: Not Given Documented By: SURY Non-Admin Reason: Discontinued Bumetanide (Bumetanide Inj 0.25 Mg/Ml Vial 4 Ml) 2 mg IVP QDAY ONE Stop: 07/06/25 20:05 Last Admin: 07/06/25 20:17 Dose: 2 mg Documented By: JACK Calcium Gluconate (Calcium Gluconate 10% Inj 1 Gm/10 Ml Vial) 1 gm IV X1 ONE Stop: 07/05/25 18:58 Last Admin: 07/05/25 19:36 Dose: 1 gm Documented By: LUZ MARIA Collagenase (Collagenase Oint 30 Gm Tube) 0 gm TOP QDAY [facility] Stop: 08/06/25 08:59 Dextrose (Dextrose 50%-Water Inj 50 Ml Syringe) 25 ml IV Q15MIN PRN PRN Reason: BG 50-70 responsive npo pt Stop: 08/04/25 07:50 Dextrose (Dextrose 50%-Water Inj 50 Ml Syringe) 50 ml IV Q15MIN PRN PRN Reason: BG <50 OR BG <70 & pt unresponsive Stop: 08/04/25 07:50 Dextrose (Dextrose 50%-Water Inj 50 Ml Syringe) 50 ml IVP X1 ONE Stop: 07/05/25 18:58 Last Admin: 07/05/25 19:27 Dose: 50 ml Documented By: LUZ MARIA Dextrose/Electrolytes (Electrolyte-56/D5w 1,000 Ml Bag) 1,000 ml IV PER ORDER PRN PRN Reason: UO Net negative more than 1 L Stop: 08/04/25 23:44 Etomidate (Etomidate Inj 2 Mg/Ml Vial 10 Ml) 20 mg IVP X1 ONE Stop: 07/05/25 14:05 Last Admin: 07/05/25 14:03 Dose: 20 mg Documented By: NAYELI Fentanyl Citrate (Fentanyl Cit Inj 50 Mcg/Ml Amp 2ml) 25 mcg IVP X1 ONE Stop: 07/05/25 03:01 Last Admin: 07/05/25 03:04 Dose: Not Given Documented By: DT Non-Admin Reason: Cancelled by Provider Furosemide (Furosemide Inj 10 Mg/Ml 4ml Vial) 40 mg IVP X1 ONE Stop: 07/05/25 23:39 Last Admin: 07/05/25 23:47 Dose: 40 mg Documented By: JACK Comments: VERIFIED WITH DR THAO Glucagon (Glucagon Inj 1 Mg Vial) 1 mg IM Q15MIN PRN PRN Reason: BG <70, and no IV access Sodium Chloride (Ns) 1,000 mls @ 999 mls/hr IV .Q1H1M ONE Stop: 07/05/25 04:11 Last Infusion: 07/05/25 04:42 Dose: Infused Documented By: Admin: 07/05/25 03:23 Dose: 999 mls/hr Documented By: OSMANY Piperacillin/Tazobactam/Dextrose (Zosyn) 3.375 gm in 50 mls @ 100 mls/hr IV X1 ONE; Protocol Stop: 07/05/25 04:29 Last Infusion: 07/05/25 04:45 Dose: Infused Documented By: Admin: 07/05/25 04:15 Dose: 100 mls/hr Documented By: OSMANY Sodium Chloride (Ns) 1,000 mls @ 999 mls/hr IV .Q1H1M ONE Stop: 07/05/25 05:00 Last Infusion: 07/05/25 05:15 Dose: Infused Documented By: Admin: 07/05/25 04:14 Dose: 999 mls/hr Documented By: OSMANY Sodium Chloride (Ns) 1,000 mls @ 999 mls/hr IV .Q1H1M ONE Stop: 07/05/25 05:01 Last Admin: 07/05/25 04:15 Dose: Not Given Documented By: DT Non-Admin Reason: Cancelled by Provider Norepinephrine/Dextrose (Levophed In D5w 8mg/250ml) 8 mg in 250 mls @ 6.804 mls/hr IV .Q24H PRN; Protocol PRN Reason: PER PROTOCOL Stop: 08/04/25 04:15 Last Titration: 07/07/25 05:35 Dose: 0.03 mcg/kg/min, 4.082 mls/hr Documented By: Titration: 07/07/25 05:00 Dose: 0.03 mcg/kg/min, 4.082 mls/hr Documented By: Titration: 07/07/25 04:00 Dose: 0.03 mcg/kg/min, 4.082 mls/hr Documented By: Titration: 07/07/25 03:00 Dose: 0.03 mcg/kg/min, 4.082 mls/hr Documented By: Titration: 07/07/25 02:00 Dose: 0.03 mcg/kg/min, 4.082 mls/hr Documented By: Titration: 07/07/25 01:00 Dose: 0.03 mcg/kg/min, 4.082 mls/hr Documented By: Titration: 07/07/25 00:00 Dose: 0.03 mcg/kg/min, 4.082 mls/hr Documented By: Titration: 07/06/25 23:00 Dose: 0.03 mcg/kg/min, 4.082 mls/hr Documented By: Titration: 07/06/25 22:00 Dose: 0.03 mcg/kg/min, 4.082 mls/hr Documented By: Titration: 07/06/25 21:00 Dose: 0.03 mcg/kg/min, 4.082 mls/hr Documented By: Titration: 07/06/25 20:00 Dose: 0.03 mcg/kg/min, 4.082 mls/hr Documented By: Titration: 07/06/25 19:00 Dose: 0.03 mcg/kg/min, 4.082 mls/hr Documented By: Titration: 07/06/25 18:00 Dose: 0.03 mcg/kg/min, 4.082 mls/hr Documented By: Admin: 07/06/25 17:02 Dose: 0.03 mcg/kg/min, 4.082 mls/hr Documented By: Titration: 07/06/25 17:00 Dose: Infused Documented By: Titration: 07/06/25 16:00 Dose: 0.03 mcg/kg/min, 4.082 mls/hr Documented By: Titration: 07/06/25 15:00 Dose: 0.03 mcg/kg/min, 4.082 mls/hr Documented By: Titration: 07/06/25 14:00 Dose: 0.03 mcg/kg/min, 4.082 mls/hr Documented By: Titration: 07/06/25 13:00 Dose: 0.03 mcg/kg/min, 4.082 mls/hr Documented By: Titration: 07/06/25 12:34 Dose: 0.03 mcg/kg/min, 4.082 mls/hr Documented By: Titration: 07/06/25 12:00 Dose: 0.05 mcg/kg/min, 6.804 mls/hr Documented By: Titration: 07/06/25 11:51 Dose: 0.05 mcg/kg/min, 6.804 mls/hr Documented By: Titration: 07/06/25 11:00 Dose: 0.03 mcg/kg/min, 4.082 mls/hr Documented By: Titration: 07/06/25 10:00 Dose: 0.03 mcg/kg/min, 4.082 mls/hr Documented By: Titration: 07/06/25 09:00 Dose: 0.03 mcg/kg/min, 4.082 mls/hr Documented By: Titration: 07/06/25 08:00 Dose: 0.03 mcg/kg/min, 4.082 mls/hr Documented By: Titration: 07/06/25 07:00 Dose: 0.03 mcg/kg/min, 4.082 mls/hr Documented By: Titration: 07/06/25 06:45 Dose: 0.03 mcg/kg/min, 4.082 mls/hr Documented By: Titration: 07/06/25 06:00 Dose: 0.05 mcg/kg/min, 6.804 mls/hr Documented By: Titration: 07/06/25 05:00 Dose: 0.05 mcg/kg/min, 6.804 mls/hr Documented By: Titration: 07/06/25 04:22 Dose: 0.05 mcg/kg/min, 6.804 mls/hr Documented By: Titration: 07/06/25 04:00 Dose: 0.07 mcg/kg/min, 9.525 mls/hr Documented By: Titration: 07/06/25 03:00 Dose: 0.07 mcg/kg/min, 9.525 mls/hr Documented By: Titration: 07/06/25 02:00 Dose: 0.07 mcg/kg/min, 9.525 mls/hr Documented By: Titration: 07/06/25 01:23 Dose: 0.07 mcg/kg/min, 9.525 mls/hr Documented By: Titration: 07/06/25 01:00 Dose: 0.05 mcg/kg/min, 6.804 mls/hr Documented By: Titration: 07/06/25 00:00 Dose: 0.05 mcg/kg/min, 6.804 mls/hr Documented By: Titration: 07/05/25 23:00 Dose: 0.05 mcg/kg/min, 6.804 mls/hr Documented By: Titration: 07/05/25 22:00 Dose: 0.05 mcg/kg/min, 6.804 mls/hr Documented By: Admin: 07/05/25 21:19 Dose: 0.05 mcg/kg/min, 6.804 mls/hr Documented By: Titration: 07/05/25 13:00 Dose: Infused Documented By: Titration: 07/05/25 12:00 Dose: 0.15 mcg/kg/min, 20.412 mls/hr Documented By: Titration: 07/05/25 11:30 Dose: 0.17 mcg/kg/min, 23.133 mls/hr Documented By: Titration: 07/05/25 11:15 Dose: 0.19 mcg/kg/min, 25.855 mls/hr Documented By: Titration: 07/05/25 11:10 Dose: Infused Documented By: Titration: 07/05/25 11:00 Dose: Infused Documented By: Titration: 07/05/25 10:45 Dose: Infused Documented By: Titration: 07/05/25 10:40 Dose: Infused Documented By: Titration: 07/05/25 10:30 Dose: Infused Documented By: Titration: 07/05/25 10:30 Dose: 0.29 mcg/kg/min, 39.463 mls/hr Documented By: Titration: 07/05/25 10:25 Dose: 0.31 mcg/kg/min, 42.184 mls/hr Documented By: Titration: 07/05/25 10:00 Dose: 0.33 mcg/kg/min, 44.906 mls/hr Documented By: Titration: 07/05/25 10:00 Dose: 0.35 mcg/kg/min, 47.627 mls/hr Documented By: Titration: 07/05/25 09:00 Dose: 0.37 mcg/kg/min, 50.349 mls/hr Documented By: Titration: 07/05/25 08:00 Dose: 0.37 mcg/kg/min, 50.349 mls/hr Documented By: Titration: 07/05/25 07:45 Dose: 0.35 mcg/kg/min, 47.627 mls/hr Documented By: Titration: 07/05/25 07:40 Dose: 0.33 mcg/kg/min, 44.906 mls/hr Documented By: Titration: 07/05/25 07:35 Dose: 0.31 mcg/kg/min, 42.184 mls/hr Documented By: Titration: 07/05/25 07:00 Dose: 0.33 mcg/kg/min, 44.906 mls/hr Documented By: Titration: 07/05/25 06:20 Dose: 0.31 mcg/kg/min, 42.184 mls/hr Documented By: Titration: 07/05/25 06:10 Dose: 0.31 mcg/kg/min, 42.184 mls/hr Documented By: Titration: 07/05/25 06:05 Dose: 0.31 mcg/kg/min, 42.184 mls/hr Documented By: Titration: 07/05/25 05:51 Dose: 0.29 mcg/kg/min, 39.463 mls/hr Documented By: Titration: 07/05/25 05:51 Dose: 0.29 mcg/kg/min, 39.463 mls/hr Documented By: Titration: 07/05/25 05:46 Dose: 0.25 mcg/kg/min, 34.02 mls/hr Documented By: Titration: 07/05/25 05:40 Dose: 0.25 mcg/kg/min, 34.02 mls/hr Documented By: Titration: 07/05/25 05:35 Dose: 0.17 mcg/kg/min, 23.133 mls/hr Documented By: Titration: 07/05/25 05:25 Dose: 0.15 mcg/kg/min, 20.412 mls/hr Documented By: Titration: 07/05/25 05:10 Dose: 0.13 mcg/kg/min, 17.69 mls/hr Documented By: Titration: 07/05/25 05:05 Dose: 0.13 mcg/kg/min, 17.69 mls/hr Documented By: Titration: 07/05/25 05:00 Dose: 0.13 mcg/kg/min, 17.69 mls/hr Documented By: Titration: 07/05/25 04:55 Dose: 0.13 mcg/kg/min, 17.69 mls/hr Documented By: Titration: 07/05/25 04:50 Dose: 0.13 mcg/kg/min, 17.69 mls/hr Documented By: Titration: 07/05/25 04:45 Dose: 0.11 mcg/kg/min, 14.969 mls/hr Documented By: Titration: 07/05/25 04:40 Dose: 0.09 mcg/kg/min, 12.247 mls/hr Documented By: Titration: 07/05/25 04:35 Dose: 0.07 mcg/kg/min, 9.525 mls/hr Documented By: Admin: 07/05/25 04:30 Dose: 0.05 mcg/kg/min, 6.804 mls/hr Documented By: DT Sodium Chloride (Ns) 1,000 mls @ 100 mls/hr IV Q10H PABLO Stop: 08/04/25 04:18 Last Admin: 07/05/25 07:33 Dose: Not Given Documented By: EF Non-Admin Reason: hold per md Sodium Chloride (Ns) 1,000 mls @ 200 mls/hr IV .Q5H PABLO Stop: 08/04/25 04:18 Last Infusion: 07/05/25 06:12 Dose: 0 mls/hr Documented By: Admin: 07/05/25 04:33 Dose: 200 mls/hr Documented By: OSMANY Albumin Human (Albuminex 25% Ivpb) 25 gm in 100 mls @ 100 mls/hr IV X1 ONE Stop: 07/05/25 07:07 Last Infusion: 07/05/25 07:16 Dose: Infused Documented By: Admin: 07/05/25 06:16 Dose: 100 mls/hr Documented By: OSMANY Albumin Human (Albuminex 25% Ivpb) 25 gm in 100 mls @ 100 mls/hr IV QDAY@1100 [facility] Stop: 07/08/25 10:59 Last Infusion: 07/06/25 17:53 Dose: Infused Documented By: Admin: 07/06/25 11:01 Dose: 100 mls/hr Documented By: Infusion: 07/05/25 12:43 Dose: Infused Documented By: Admin: 07/05/25 11:43 Dose: 100 mls/hr Documented By: SURY Albumin Human (Albuminex 25% Ivpb) 25 gm in 100 mls @ 100 mls/hr IV QDAY@1000 PABLO Stop: 07/08/25 09:59 Last Infusion: 07/06/25 17:53 Dose: Infused Documented By: Admin: 07/06/25 09:51 Dose: 100 mls/hr Documented By: Infusion: 07/05/25 12:09 Dose: Infused Documented By: Admin: 07/05/25 11:09 Dose: 100 mls/hr Documented By: SURY Albumin Human (Albuminex 25% Ivpb) 25 gm in 100 mls @ 100 mls/hr IV QDAY PABLO Stop: 07/08/25 08:59 Last Infusion: 07/06/25 17:53 Dose: Infused Documented By: Admin: 07/06/25 08:33 Dose: 100 mls/hr Documented By: Infusion: 07/05/25 10:26 Dose: Infused Documented By: Admin: 07/05/25 09:26 Dose: 100 mls/hr Documented By: SURY Ceftriaxone Sodium/Dextrose (Rocephin/D5w 1gm Iv Premix) 1 gm in 50 mls @ 100 mls/hr IV QDAY PABLO Stop: 07/12/25 07:58 Last Admin: 07/06/25 08:33 Dose: 100 mls/hr Documented By: Infusion: 07/05/25 09:55 Dose: Infused Documented By: Admin: 07/05/25 09:25 Dose: 100 mls/hr Documented By: SURY Octreotide Acetate 1,000 mcg/ (Sodium Chloride) 102 mls @ 5.1 mls/hr IV .Q20H PABLO; Protocol Stop: 07/10/25 04:43 Last Admin: 07/06/25 22:30 Dose: 50 mcg/hr, 5.1 mls/hr Documented By: Infusion: 07/06/25 22:30 Dose: Infused Documented By: Admin: 07/06/25 03:05 Dose: 50 mcg/hr, 5.1 mls/hr Documented By: JACK Octreotide Acetate 1,000 mcg/ (Sodium Chloride) 102 mls @ 5.1 mls/hr IV .Q20H ONE; Protocol Stop: 07/06/25 04:44 Last Infusion: 07/06/25 03:07 Dose: Infused Documented By: Admin: 07/05/25 11:09 Dose: 50 mcg/hr, 5.1 mls/hr Documented By: SURY Sodium Chloride (Ns) 1,000 mls @ 999 mls/hr IV .Q1H1M ONE Stop: 07/05/25 12:17 Last Admin: 07/05/25 11:17 Dose: 999 mls/hr Documented By: SURY Fentanyl Citrate (Sublimaze Inj 2,500 Mcg/250 Ml Bag) 2,500 mcg in 250 mls @ 2.5 mls/hr IV .Q24H PRN; Protocol PRN Reason: PER PROTOCOL Stop: 07/10/25 13:58 Last Titration: 07/07/25 05:35 Dose: 300 mcg/hr, 30 mls/hr Documented By: Titration: 07/07/25 05:00 Dose: 300 mcg/hr, 30 mls/hr Documented By: Titration: 07/07/25 04:00 Dose: 300 mcg/hr, 30 mls/hr Documented By: Titration: 07/07/25 03:00 Dose: 300 mcg/hr, 30 mls/hr Documented By: Admin: 07/07/25 02:02 Dose: 300 mcg/hr, 30 mls/hr Documented By: HV Co-signed By: ZP Titration: 07/07/25 02:02 Dose: Infused Documented By: HV Co-signed By: ZP Titration: 07/07/25 02:00 Dose: 300 mcg/hr, 30 mls/hr Documented By: Titration: 07/07/25 01:00 Dose: 300 mcg/hr, 30 mls/hr Documented By: Titration: 07/07/25 00:00 Dose: 300 mcg/hr, 30 mls/hr Documented By: Titration: 07/06/25 23:00 Dose: 300 mcg/hr, 30 mls/hr Documented By: Titration: 07/06/25 22:00 Dose: 300 mcg/hr, 30 mls/hr Documented By: Titration: 07/06/25 21:00 Dose: 300 mcg/hr, 30 mls/hr Documented By: Titration: 07/06/25 20:00 Dose: 300 mcg/hr, 30 mls/hr Documented By: Titration: 07/06/25 19:00 Dose: 300 mcg/hr, 30 mls/hr Documented By: Titration: 07/06/25 18:00 Dose: 300 mcg/hr, 30 mls/hr Documented By: Admin: 07/06/25 17:32 Dose: 300 mcg/hr, 30 mls/hr Documented By: AT Co-signed By: VL Titration: 07/06/25 17:29 Dose: Infused Documented By: AT Co-signed By: VL Titration: 07/06/25 17:00 Dose: 300 mcg/hr, 30 mls/hr Documented By: AT Co-signed By: VL Titration: 07/06/25 16:00 Dose: 300 mcg/hr, 30 mls/hr Documented By: Titration: 07/06/25 15:00 Dose: 300 mcg/hr, 30 mls/hr Documented By: Titration: 07/06/25 14:00 Dose: 300 mcg/hr, 30 mls/hr Documented By: Titration: 07/06/25 13:00 Dose: 300 mcg/hr, 30 mls/hr Documented By: Titration: 07/06/25 12:00 Dose: 300 mcg/hr, 30 mls/hr Documented By: Titration: 07/06/25 11:00 Dose: 300 mcg/hr, 30 mls/hr Documented By: Titration: 07/06/25 10:00 Dose: 300 mcg/hr, 30 mls/hr Documented By: Admin: 07/06/25 09:09 Dose: 300 mcg/hr, 30 mls/hr Documented By: AT Co-signed By: GE Titration: 07/06/25 09:09 Dose: Infused Documented By: AT Co-signed By: GE Titration: 07/06/25 09:00 Dose: 300 mcg/hr, 30 mls/hr Documented By: Titration: 07/06/25 08:00 Dose: 300 mcg/hr, 30 mls/hr Documented By: Titration: 07/06/25 07:00 Dose: 300 mcg/hr, 30 mls/hr Documented By: Titration: 07/06/25 06:00 Dose: 300 mcg/hr, 30 mls/hr Documented By: Titration: 07/06/25 05:00 Dose: 300 mcg/hr, 30 mls/hr Documented By: Titration: 07/06/25 04:00 Dose: 300 mcg/hr, 30 mls/hr Documented By: Titration: 07/06/25 03:00 Dose: 300 mcg/hr, 30 mls/hr Documented By: Titration: 07/06/25 02:00 Dose: 300 mcg/hr, 30 mls/hr Documented By: Admin: 07/06/25 01:21 Dose: 300 mcg/hr, 30 mls/hr Documented By: HV Co-signed By: ZP Titration: 07/06/25 01:21 Dose: Infused Documented By: HV Co-signed By: ZP Titration: 07/06/25 01:00 Dose: 300 mcg/hr, 30 mls/hr Documented By: Titration: 07/06/25 00:00 Dose: 300 mcg/hr, 30 mls/hr Documented By: Titration: 07/05/25 23:00 Dose: 300 mcg/hr, 30 mls/hr Documented By: Titration: 07/05/25 22:00 Dose: 300 mcg/hr, 30 mls/hr Documented By: Titration: 07/05/25 21:00 Dose: 300 mcg/hr, 30 mls/hr Documented By: Titration: 07/05/25 20:00 Dose: 300 mcg/hr, 30 mls/hr Documented By: Titration: 07/05/25 19:46 Dose: 300 mcg/hr, 30 mls/hr Documented By: Titration: 07/05/25 19:00 Dose: 250 mcg/hr, 25 mls/hr Documented By: Titration: 07/05/25 18:00 Dose: 250 mcg/hr, 25 mls/hr Documented By: Titration: 07/05/25 17:00 Dose: 250 mcg/hr, 25 mls/hr Documented By: Titration: 07/05/25 16:36 Dose: 200 mcg/hr, 20 mls/hr Documented By: Titration: 07/05/25 16:00 Dose: 100 mcg/hr, 10 mls/hr Documented By: Titration: 07/05/25 15:00 Dose: 75 mcg/hr, 7.5 mls/hr Documented By: Admin: 07/05/25 14:15 Dose: 25 mcg/hr, 2.5 mls/hr Documented By: NAYELI Co-signed By: SURY Propofol (Diprivan Ivpb) 1,000 mg in 100 mls @ 2.177 mls/hr IV .Q24H PRN; Protocol PRN Reason: PER PROTOCOL Stop: 08/04/25 13:58 Last Titration: 07/07/25 05:35 Dose: 5 mcg/kg/min, 2.177 mls/hr Documented By: Titration: 07/07/25 05:00 Dose: 5 mcg/kg/min, 2.177 mls/hr Documented By: Admin: 07/07/25 04:37 Dose: 5 mcg/kg/min, 2.177 mls/hr Documented By: JACK Co-signed By: ZP Titration: 07/07/25 04:37 Dose: Infused Documented By: HV Co-signed By: ZP Titration: 07/07/25 04:00 Dose: 5 mcg/kg/min, 2.177 mls/hr Documented By: Titration: 07/07/25 03:00 Dose: 5 mcg/kg/min, 2.177 mls/hr Documented By: Titration: 07/07/25 02:00 Dose: 5 mcg/kg/min, 2.177 mls/hr Documented By: Titration: 07/07/25 01:00 Dose: 5 mcg/kg/min, 2.177 mls/hr Documented By: Titration: 07/07/25 00:00 Dose: 5 mcg/kg/min, 2.177 mls/hr Documented By: Titration: 07/06/25 23:00 Dose: 5 mcg/kg/min, 2.177 mls/hr Documented By: Titration: 07/06/25 22:00 Dose: 5 mcg/kg/min, 2.177 mls/hr Documented By: Titration: 07/06/25 21:00 Dose: 5 mcg/kg/min, 2.177 mls/hr Documented By: Titration: 07/06/25 20:00 Dose: 5 mcg/kg/min, 2.177 mls/hr Documented By: Titration: 07/06/25 19:00 Dose: 5 mcg/kg/min, 2.177 mls/hr Documented By: Titration: 07/06/25 18:00 Dose: 5 mcg/kg/min, 2.177 mls/hr Documented By: Admin: 07/06/25 17:00 Dose: 5 mcg/kg/min, 2.177 mls/hr Documented By: AT Co-signed By: MR Titration: 07/06/25 17:00 Dose: Infused Documented By: AT Co-signed By: MR Titration: 07/06/25 16:00 Dose: 5 mcg/kg/min, 2.177 mls/hr Documented By: Titration: 07/06/25 15:00 Dose: 5 mcg/kg/min, 2.177 mls/hr Documented By: Titration: 07/06/25 14:00 Dose: 5 mcg/kg/min, 2.177 mls/hr Documented By: Titration: 07/06/25 13:00 Dose: 5 mcg/kg/min, 2.177 mls/hr Documented By: Titration: 07/06/25 12:00 Dose: 5 mcg/kg/min, 2.177 mls/hr Documented By: Titration: 07/06/25 11:51 Dose: 5 mcg/kg/min, 2.177 mls/hr Documented By: Titration: 07/06/25 11:00 Dose: 5 mcg/kg/min, 2.177 mls/hr Documented By: Titration: 07/06/25 10:00 Dose: 5 mcg/kg/min, 2.177 mls/hr Documented By: Titration: 07/06/25 09:10 Dose: 10 mcg/kg/min, 4.355 mls/hr Documented By: Titration: 07/06/25 09:00 Dose: 15 mcg/kg/min, 6.532 mls/hr Documented By: Titration: 07/06/25 08:00 Dose: 15 mcg/kg/min, 6.532 mls/hr Documented By: Titration: 07/06/25 07:00 Dose: 15 mcg/kg/min, 6.532 mls/hr Documented By: Titration: 07/06/25 06:00 Dose: 15 mcg/kg/min, 6.532 mls/hr Documented By: Titration: 07/06/25 05:00 Dose: 15 mcg/kg/min, 6.532 mls/hr Documented By: Admin: 07/06/25 04:45 Dose: 15 mcg/kg/min, 6.532 mls/hr Documented By: JACK Co-signed By: ZP Titration: 07/06/25 04:45 Dose: Infused Documented By: JACK Co-signed By: ZP Titration: 07/06/25 04:00 Dose: 15 mcg/kg/min, 6.532 mls/hr Documented By: Titration: 07/06/25 03:00 Dose: 15 mcg/kg/min, 6.532 mls/hr Documented By: Titration: 07/06/25 02:00 Dose: 15 mcg/kg/min, 6.532 mls/hr Documented By: Titration: 07/06/25 01:00 Dose: 15 mcg/kg/min, 6.532 mls/hr Documented By: Titration: 07/06/25 00:00 Dose: 15 mcg/kg/min, 6.532 mls/hr Documented By: Titration: 07/05/25 23:00 Dose: 15 mcg/kg/min, 6.532 mls/hr Documented By: Titration: 07/05/25 22:00 Dose: 15 mcg/kg/min, 6.532 mls/hr Documented By: Titration: 07/05/25 21:00 Dose: 15 mcg/kg/min, 6.532 mls/hr Documented By: Titration: 07/05/25 20:00 Dose: 15 mcg/kg/min, 6.532 mls/hr Documented By: Titration: 07/05/25 19:00 Dose: 15 mcg/kg/min, 6.532 mls/hr Documented By: Titration: 07/05/25 18:00 Dose: 15 mcg/kg/min, 6.532 mls/hr Documented By: Titration: 07/05/25 17:00 Dose: 15 mcg/kg/min, 6.532 mls/hr Documented By: Titration: 07/05/25 16:00 Dose: 15 mcg/kg/min, 6.532 mls/hr Documented By: Titration: 07/05/25 15:00 Dose: 10 mcg/kg/min, 4.355 mls/hr Documented By: Admin: 07/05/25 14:15 Dose: 5 mcg/kg/min, 2.177 mls/hr Documented By: GE Co-signed By: SURY Calcium Chloride 10 ml/ (Dextrose) 110 mls @ 110 mls/hr IV X1 ONE Stop: 07/05/25 15:49 Last Infusion: 07/06/25 08:03 Dose: Infused Documented By: Admin: 07/05/25 14:50 Dose: 110 mls/hr Documented By: SURY Tranexamic Acid (Tranexamic Acid Ivpb) 1,000 mg in 100 mls @ 200 mls/hr IV X1 ONE Stop: 07/05/25 17:14 Last Admin: 07/05/25 16:36 Dose: 200 mls/hr Documented By: SURY Vasopressin/Sodium Chloride (Vasostrict/Ns Ivpb) 20 unit in 100 mls @ 9 mls/hr IV .Q11H7M PRN; Protocol PRN Reason: PER PROTOCOL Stop: 08/04/25 16:44 Last Admin: 07/07/25 02:37 Dose: 0.03 unit/min, 9 mls/hr Documented By: Titration: 07/07/25 02:37 Dose: Infused Documented By: Titration: 07/06/25 19:00 Dose: 0.03 unit/min, 9 mls/hr Documented By: Admin: 07/06/25 15:20 Dose: 0.03 unit/min, 9 mls/hr Documented By: Titration: 07/06/25 15:09 Dose: Infused Documented By: Admin: 07/06/25 04:02 Dose: 0.03 unit/min, 9 mls/hr Documented By: Titration: 07/06/25 04:02 Dose: Infused Documented By: Titration: 07/06/25 00:00 Dose: 0.03 unit/min, 9 mls/hr Documented By: Titration: 07/05/25 23:00 Dose: 0.03 unit/min, 9 mls/hr Documented By: Titration: 07/05/25 22:00 Dose: 0.03 unit/min, 9 mls/hr Documented By: Titration: 07/05/25 21:00 Dose: 0.03 unit/min, 9 mls/hr Documented By: Titration: 07/05/25 20:00 Dose: 0.03 unit/min, 9 mls/hr Documented By: Titration: 07/05/25 19:00 Dose: 0.03 unit/min, 9 mls/hr Documented By: Titration: 07/05/25 18:00 Dose: 0.03 unit/min, 9 mls/hr Documented By: Admin: 07/05/25 17:49 Dose: 0.03 unit/min, 9 mls/hr Documented By: SURY Calcium Chloride 10 ml/ Sodium (Chloride) 110 mls @ 110 mls/hr IV X1 ONE Stop: 07/05/25 18:16 Last Admin: 07/05/25 18:01 Dose: 110 mls/hr Documented By: SURY Magnesium Sulfate (Magnesium Sulfate Ivpb) 2 gm in 50 mls @ 25 mls/hr IV X1 ONE Stop: 07/06/25 07:46 Last Infusion: 07/06/25 11:51 Dose: Infused Documented By: Admin: 07/06/25 05:55 Dose: 25 mls/hr Documented By: HV Insulin Human Lispro (Insulin Lispro (Admelog) 1 Unit/0.01 Ml Unit) 0 unit SC [facility]; Protocol Stop: 08/04/25 11:29 Last Admin: 07/06/25 08:02 Dose: Not Given Documented By: AT Non-Admin Reason: Override Medication Admin: 07/05/25 18:01 Dose: Not Given Documented By: SURY Non-Admin Reason: Per Protocol Admin: 07/05/25 11:42 Dose: 1 unit Documented By: SURY Co-signed By: QIANA Insulin Human Lispro (Insulin Lispro (Admelog) 1 Unit/0.01 Ml Unit) 0 unit SC Q6H PABLO; Protocol Stop: 08/05/25 11:59 Last Admin: 07/07/25 00:50 Dose: Not Given Documented By: JACK Non-Admin Reason: Per Protocol Admin: 07/06/25 17:48 Dose: Not Given Documented By: AT Non-Admin Reason: NPO Admin: 07/06/25 11:49 Dose: Not Given Documented By: AT Non-Admin Reason: NPO Insulin Human Regular (Insulin Hum Regular 1 Unit/0.01 Ml (Per Unit)) 5 unit IV X1 ONE Stop: 07/05/25 18:58 Last Admin: 07/05/25 19:27 Dose: 5 unit Documented By: LUZ MARIA Co-signed By: JACK Lactulose (Lactulose Syrup 20 Gm/30 Ml Udc) 10 gm PO TID [facility]; Protocol Stop: 08/04/25 13:59 Last Admin: 07/06/25 21:17 Dose: 10 gm Documented By: Admin: 07/06/25 13:51 Dose: 10 gm Documented By: Admin: 07/06/25 04:56 Dose: Not Given Documented By: LUZ MARIA Non-Admin Reason: Hold per MD THAO Admin: 07/05/25 20:43 Dose: Not Given Documented By: JACK Non-Admin Reason: OG LIS; Verified with Dr Thao Admin: 07/05/25 16:40 Dose: Not Given Documented By: SURY Non-Admin Reason: held per Morphine Sulfate (Morphine Sulf Inj 4 Mg/Ml Vial) 2 mg IVP Q2H PRN PRN Reason: PAIN SCALE 4-10(Mod-Sev Ondansetron HCl (Ondansetron Inj 2 Mg/Ml Inj 2 Ml) 4 mg IVP X1 ONE; Protocol Stop: 07/05/25 03:01 Last Admin: 07/05/25 03:04 Dose: Not Given Documented By: OSMANY Non-Admin Reason: Cancelled by Provider Ondansetron HCl (Ondansetron Inj 2 Mg/Ml Inj 2 Ml) 4 mg IVP X1 ONE; Protocol Stop: 07/05/25 06:07 Last Admin: 07/05/25 06:15 Dose: 4 mg Documented By: OSMANY Ondansetron HCl (Ondansetron Inj 2 Mg/Ml Inj 2 Ml) 4 mg IVP Q6H PRN; Protocol PRN Reason: NAUSEA OR VOMITING Stop: 08/04/25 07:45 Pantoprazole Sodium (Pantoprazole Inj 40 Mg Vial) 80 mg IVP X1 ONE Stop: 07/05/25 08:39 Last Admin: 07/05/25 09:25 Dose: 80 mg Documented By: SURY Pantoprazole Sodium (Pantoprazole Inj 40 Mg Vial) 40 mg IVP BID PABLO Stop: 08/04/25 20:59 Last Admin: 07/06/25 20:17 Dose: 40 mg Documented By: Admin: 07/06/25 08:34 Dose: 40 mg Documented By: Admin: 07/05/25 20:42 Dose: 40 mg Documented By: LUZ MARIA Rifaximin (Rifaximin 550 Mg Tablet) 550 mg PO BID PABLO Stop: 07/12/25 20:59 Last Admin: 07/06/25 20:19 Dose: 550 mg Documented By: Admin: 07/06/25 08:34 Dose: 550 mg Documented By: Admin: 07/05/25 20:42 Dose: Not Given Documented By: JACK Non-Admin Reason: OG LIS; Verified with Dr Thao Rocuronium [place] (Rocuronium Inj 10 Mg/Ml Vial 10 Ml) 80 mg IV X1 ONE Stop: 07/05/25 14:05 Last Admin: 07/05/25 14:04 Dose: 80 mg Documented By: NAYELI Co-signed By: SURY Sodium Bicarbonate (Sodium Bicarb Inj 8.4% 1 Meq/Ml 50 Ml Vial) 50 meq IV X1 ONE Stop: 07/05/25 18:53 Last Admin: 07/05/25 19:27 Dose: Not Given Documented By: LUZ MARIA Non-Admin Reason: Cancelled by Provider Sodium Bicarbonate (Sodium Bicarb Inj 8.4% 1 Meq/Ml 50 Ml Vial) 50 meq IV X1 ONE Stop: 07/05/25 18:57 Last Admin: 07/05/25 19:27 Dose: Not Given Documented By: WilmaP Non-Admin Reason: Cancelled by Provider Sodium Bicarbonate (Sodium Bicarb Inj 8.4% Syr 50 Ml Syringe) 100 ml IV X1 ONE Stop: 07/05/25 19:21 Last Admin: 07/05/25 19:26 Dose: 100 ml Documented By: LUZ MARIA Sodium Bicarbonate (Sodium Bicarb Inj 8.4% Syr 50 Ml Syringe) 50 ml IV X1 ONE Stop: 07/05/25 22:05 Last Admin: 07/05/25 22:14 Dose: 50 ml Documented By: JACK Sodium Bicarbonate (Sodium Bicarb Inj 8.4% Syr 50 Ml Syringe) 50 ml IV X1 ONE Stop: 07/06/25 21:21 Last Admin: 07/06/25 21:36 Dose: 50 ml Documented By: JACK Sodium Bicarbonate (Sodium Bicarb Inj 8.4% Syr 50 Ml Syringe) Confirm Administered Dose 50 ml IV .STK-MED ONE Stop: 07/06/25 21:34 Last Admin: 07/06/25 21:42 Dose: Not Given Documented By: WilmaP Non-Admin Reason: Override Medication See above if any Consultations Consultation(s) initiated? (list below): Yes Consultation #1 (Physician, Specialty, Details): Discussed with Dr. Perez for admission. Reviewed the patient?s HPI, PMHx, lab and/or radiology results. Discussed treatment plan. Will consult an admission to the hospitalist. Time: 05:50 Consultation #2 (Physician, Specialty, Details): Dr. Barros made aware of the patient?s HPI, PMHx, lab and/or radiology results. Discussed treatment plan. Advises consult with Dr. Obrien. Time: 06:15 Diagnosis Weakness Differential Diagnosis: acute myocardial infarction, anemia, hypoglycemia, hypothyroidism, rhabdomyolysis, sepsis and dehydration Most likely diagnosis given after review of the tests above:: Septic shock Admission Indicated Admission indicated?: indicated Explain why admission is indicated or not indicated:: Septic shock Admission Request Was there a request for admission?: Yes Admission Attestation Admission request attestation: Discussed case with [] from Hospitalist service regarding admission. Discussed patients ED course, exam findings, labs, and radiology results. The Hospitalist [agrees,declines] to accept the patient for admission. Disposition Plan Disposition Plan: Admit Critical Care Time Critical Care Time Critical Care Time: Yes Total Critical Care Time (min.): 45 Attestation: The high probability of sudden, clinically significant deterioration in the patient?s condition required the highest level of my preparedness to intervene urgently. The services I provided to this patient were to treat and/or prevent clinically significant deterioration. Services included the following: chart data review, reviewing nursing notes and/or old charts, documentation time, industrial rehabilitation consultant collaboration regarding findings and treatment options, medication orders and management, direct patient care, vital sign assessments and ordering, interpreting and reviewing diagnostic studies and lab tests. Aggregate critical care time includes only time during which I was engaged in work directly related to the patient?s care, as described above, whether at bedside or elsewhere in the Emergency Department. It did not include time spent performing other reported procedures or the services of residents, students, nurses or physician assistants. Discharge Plan Plan Patient Disposition: Admit Acute Care w/in Hospital Patient condition on transfer: Stable Problem List Clinical Impression: Septic shock
[2025-07-05 04:13] LABS: Alanine Aminotransferase 24 U/L (10-49); Albumin, Serum 2.3 gm/dL (3.4-4.8); Albumin/Globulin Ratio 1.4 (1.2-2.2); Alkaline Phosphatase 87 U/L (46-116); Anion Gap 9 (7-16); Aspartate Amino Transferase 37 U/L (0-34); BUN/Creatinine Ratio 9 Ratio (12-20); Bilirubin,Total 1.1 mg/dL (0.3-1.2); Blood Urea Nitrogen 7 mg/dL (9-23); Calcium 8.3 mg/dL (8.3-10.6); Calcium (Corrected) 9.7 mg/dL (8.5-10.1); Carbon Dioxide 21.8 mMol/L (20.0-31.0); Chloride 109 mMol/L (98-107); Creatinine (Component) 0.8 mg/dL (0.6-1.3); Estimated Creatinine Clearance 58.9 mL/min (>60); Globulin 1.6 gm/dL (2.3-3.5); Glucose 272 mg/dL (74-106); Osmolality,Calculated 287 (275-295); Potassium 4.8 mMol/L (3.4-5.1); Sodium 140 mMol/L (136-145); Total Protein 3.9 gm/dL (5.7-8.2); Troponin I < 0.002 ng/mL (0.0-0.045); eGFR > 60 See Note
[2025-07-05] MEDS: PIPER/TAZO 3.375 GM PREMIX 3.375 GM/50 ML BAG IV (04:15)
[2025-07-05] MEDS: Norepinephrine/D5W 8mg/250ml 8 MG/250 ML BAG 6.804 MG IV ×2 (04:30→21:19)
[2025-07-05] MEDS: SODIUM CHLORIDE 0.9% 1000 ML 1,000 ML 200 ML IV (04:33)
[2025-07-05 05:44] LABS: Ammonia 96 uMol/L (11-32)
[2025-07-05] MEDS: ONDANSETRON INJ 2 MG/ML INJ 2 ML 4 MG IVP (06:15)
[2025-07-05] MEDS: ALBUMIN HUMAN-KJDA 25% IVPB 25 GM/100 ML BTL IV ×4 (06:16→11:43)
[2025-07-05 06:42] LABS: Reflex Lactate? Y
[2025-07-05 07:16] LABS: Lactic Acid, 3 HR 7.6 mMol/L (0.4-2.0)
--- NOTE | 2025-07-05 07:27 | PC.NURSE ---
per md hines hold off on maintenance fluid
[2025-07-05 07:40] LABS: INR 1.9 (0.9-1.3); Prothrombin Time 19.2 Seconds (9.0-12.2)
[2025-07-05 07:50] LABS: Hematocrit 12.2 % (36.0-46.0); Hemoglobin 3.8 g/dL (12.0-16.0)
[2025-07-05 08:20] LABS: Influenza A Ag Negative; Influenza B Ag Negative
--- NOTE | 2025-07-05 08:33 | ESHP_ITS ---
Documentation for date of: 07/05/25 [facility] History of Present Illness Chief complaint: Generalized weakness History of present illness: This patient is a 7-year-old female with a history of atrial fibrilation, liver cirrhosis, invasive ductal breast carcinoma (right) s/p mastectomy, HLD, T2DM, hemorrhoids, and osteoporosis who presented to [facility] ED on 07/05 for acute onset generalized weakness and low blood pressures at home. Patient was admitted to the ICU for hypovolemic shock requiring vasopressor support and massive transfusion. According to the patient's son at bedside, the patient started feeling weak and started to have low blood pressure just last night, but otherwise did not have any acute complaints. The patient did not have any active signs of bleeding, fever, cough, or dark tarry stools. The patient did get the flu shot last week and had a fever the night that she had a vaccine, and did note to have a cough for about 1 month, but otherwise no recent changes or stressors were noted. ED course: Initial vitals significant for blood pressure of 77/43. Initial labs significant for hemoglobin of 9.7, platelets 93, ammonia 96, albumin 2.3, and lactic acid of 4.9. ED physician attempted to obtain urine via straight cath, but unsuccessful due to profound dehydration. Patient received 2 L of NS, but remained hypotensive, prompting initiation of Levophed and an additional 1 L of NS After patient was taken to the ICU, repeat hemoglobin, repeat lactic acid, and overall presentation suggested a rapid deterioration. The decision was made to place a central line into the patient for blood transfusion given decreasing hemoglobin with increasing fluid resuscitation demands. Arterial line was also placed to aid in frequent blood draws. Paracentesis was initially planned earlier in the day, however the patient had a noticeable and rapid decrease in her blood pressure while preparing for the paracentesis after the arterial line placement. Given the patient's worsening status, massive transfusion protocol was activated, which initially stabilized the patient, however the patient would oscillate between high and low blood pressures with systolics ranging from 50s to 250s. Noticeably, the patient was primarily in a hypotensive state which responded very well to IV fluid resuscitation and blood products. During this time, the patient's abdomen was becoming noticeably larger, however it never became firm. ICU team reached out to general surgery and gastroenterology to coordinate next best steps given the patient's critical state. General surgery noted that the patient was not stable enough to withstand surgery, so the ICU team promptly intubated the patient to protect her airways and take the patient down for an emergent CT abdomen pelvis with contrast to identify the source of her volume loss. The patient was found to have significant contrast extravasation from a 5.6 x 5.[address] mass on CT abdomen/pelvis with contrast. Ultrasound of the abdomen identified a significant pocket of fluid, and paracentesis was performed which removed about 50 mL of fluid. The peritoneal fluid was noted to be bloody in appearance and lab analysis of the peritoneal fluid showed extensive amounts of RBCs, further supporting an intra-abdominal bleed as a cause of the patient's critical hypovolemic shock. This decision was made to initiate a transfer for the patient for possible interventional radiology services as in-staff general surgery is not qualified to operate on significant hemorrhages of the liver. The patient is stable with continuous blood transfusions but will require transfer for interventional radiology to cauterize her hemorrhaging liver mass. Review of Systems Review of Systems Systems Reviewed: All systems reviewed, normal except as documented Exam Vital Signs Temp Pulse Resp BP Pulse Ox O2 Del Method 93.7 F L 84 26 H 111/43 L 99 Room Air 07/05/25 08:31 07/05/25 08:11 07/05/25 08:11 07/05/25 08:10 07/05/25 08:11 07/05/25 08:10 Narrative Exam General: Intubated Skin: Cool, dry, intact. Jaundiced. Head: Normocephalic, atraumatic. Spider angioma noted on face. Cardiovascular: Regular rate and rhythm, no murmur, +S1/S2. Respiratory: Lungs are clear to auscultation, respirations unlabored, no crackles, no wheezing. Gastrointestinal: Soft, diffusely tender to palpation, distended. No guarding or rebound tenderness. Extremities: No edema, no cyanosis, no clubbing. Results: Labs 07/06/25 04:23 07/06/25 04:23 Labs: Short CBC 07/05/25 07/05/25 Range/Units 03:39 06:55 WBC 9.2 (3.6-11.0) Thou/mm3 Hgb 9.7 L 3.8 L* D (12.0-16.0) g/dL Hct 29.4 L 12.2 L* (36.0-46.0) % Plt Count 93 L D (140-440) Thou/mm3 BMP 07/05/25 03:39 Sodium 140 Potassium 4.8 Chloride 109 H Carbon Dioxide 21.8 BUN 7 L Creatinine 0.8 Glucose 272 H Calcium 8.3 Cardiac Enzymes 07/05/25 Range/Units 03:39 Troponin I < 0.002 (0.0-0.045) ng/mL Liver Function 07/05/25 Range/Units 03:39 Total Bilirubin 1.1 (0.3-1.2) mg/dL AST 37 H (0-34) U/L ALT 24 (10-49) U/L Alkaline Phosphatase 87 (46-116) U/L Albumin 2.3 L (3.4-4.8) gm/dL Quality Measures Quality Measures sepsis Current suspected stage: ruled out Possible source: unknown Blood cultures ordered: yes Antibiotic ordered: Yes Advance care planning discussed with:: patient and child Medications Home Medications and Allergies Home Medications ?Medication ?Instructions ?Recorded ?Confirmed ?Type albuterol sulfate 90 mcg/actuation 2 puff inhalation Q 6HR PRN 04/26/16 12/22/22 History aerosol inhaler (Proventil HFA) WHEEZING #0 inhalation s sitagliptin phosphate 50 mg tablet 50 mg PO QDAY #0 ta bs 09/10/17 12/22/22 History (Januvia) alendronate 70 mg tablet 70 mg PO QWEEK 09/04/1811/26 History budesonide-formoterol HFA 80 2 puff inhalation BID 05/1512/22/22 History mcg-4.5 mcg/actuation aerosol inhaler (Symbicort) lactulose 10 gram/15 mL oral 30 ml PO EVERYOTHERDAY 12/22/22 History solution (Constulose) omeprazole 40 mg capsule,delayed 40 mg PO QDAY 9 12/22/22 History release montelukast 10 mg tablet 10 mg PO DAILY 02/20/1911/26 History atorvastatin 10 mg tablet 10 mg PO DAILY 12/22/2211/26 History dapagliflozin propanediol 5 mg 5 mg PO DAILY 12/22/22 12/22/22 History tablet (Farxiga) metoprolol succinate 25 mg 25 mg PO DAILY 12/22/22 History tablet,extended release 24 hr tamoxifen 20 mg tablet 20 mg PO DAILY 12/22/2211/26 History Allergies Allergy/AdvReac Type Severity Reaction Status Date / Time No Known Allergies Allergy Verified 12/21/22 22:56 Visit Medications Acetaminophen (Acetaminophen 325 Mg Tablet) 650 mg PO Q6H PRN PRN Reason: Fever >100.5 or pain 1-3 Stop: 08/04/25 07:45 Dextrose (Dextrose 50%-Water Inj 50 Ml Syringe) 25 ml IV Q15MIN PRN PRN Reason: BG 50-70 responsive npo pt Stop: 08/04/25 07:50 Dextrose (Dextrose 50%-Water Inj 50 Ml Syringe) 50 ml IV Q15MIN PRN PRN Reason: BG <50 OR BG <70 & pt unresponsive Stop: 08/04/25 07:50 Glucagon (Glucagon Inj 1 Mg Vial) 1 mg IM Q15MIN PRN PRN Reason: BG <70, and no IV access Norepinephrine/Dextrose (Levophed In D5w 8mg/250ml) 8 mg in 250 mls @ 6.804 mls/hr IV .Q24H PRN; Protocol PRN Reason: PER PROTOCOL Stop: 08/04/25 04:15 Last Titration: 07/05/25 08:00 Dose: 0.37 mcg/kg/min, 50.349 mls/hr Albumin Human (Albuminex 25% Ivpb) 25 gm in 100 mls @ 100 mls/hr IV QDAY PABLO Stop: 07/08/25 07:57 Albumin Human (Albuminex 25% Ivpb) 25 gm in 100 mls @ 100 mls/hr IV QDAY PABLO Stop: 07/08/25 07:57 Albumin Human (Albuminex 25% Ivpb) 25 gm in 100 mls @ 100 mls/hr IV QDAY PABLO Stop: 07/08/25 07:57 Ceftriaxone Sodium/Dextrose (Rocephin/D5w 1gm Iv Premix) 1 gm in 50 mls @ 100 mls/hr IV QDAY PABLO Stop: 07/12/25 07:58 Insulin Human Lispro (Insulin Lispro (Admelog) 1 Unit/0.01 Ml Unit) 0 unit SC [facility]; Protocol Stop: 08/04/25 11:29 Lactulose (Lactulose Syrup 20 Gm/30 Ml Udc) 10 gm PO TID PABLO; Protocol Stop: 08/04/25 13:59 Ondansetron HCl (Ondansetron Inj 2 Mg/Ml Inj 2 Ml) 4 mg IVP Q6H PRN; Protocol PRN Reason: NAUSEA OR VOMITING Stop: 08/04/25 07:45 Discontinued Medications Fentanyl Citrate (Fentanyl Cit Inj 50 Mcg/Ml Amp 2ml) 25 mcg IVP X1 ONE Stop: 07/05/25 03:01 Last Admin: 07/05/25 03:04 Dose: Not Given Sodium Chloride (Ns) 1,000 mls @ 999 mls/hr IV .Q1H1M ONE Stop: 07/05/25 04:11 Last Infusion: 07/05/25 04:42 Dose: Infused Piperacillin/Tazobactam/Dextrose (Zosyn) 3.375 gm in 50 mls @ 100 mls/hr IV X1 ONE; Protocol Stop: 07/05/25 04:29 Last Infusion: 07/05/25 04:45 Dose: Infused Sodium Chloride (Ns) 1,000 mls @ 999 mls/hr IV .Q1H1M ONE Stop: 07/05/25 05:00 Last Infusion: 07/05/25 05:15 Dose: Infused Sodium Chloride (Ns) 1,000 mls @ 999 mls/hr IV .Q1H1M ONE Stop: 07/05/25 05:01 Last Admin: 07/05/25 04:15 Dose: Not Given Sodium Chloride (Ns) 1,000 mls @ 100 mls/hr IV Q10H [facility] Stop: 08/04/25 04:18 Last Admin: 07/05/25 07:33 Dose: Not Given Sodium Chloride (Ns) 1,000 mls @ 200 mls/hr IV .Q5H PABLO Stop: 08/04/25 04:18 Last Infusion: 07/05/25 06:12 Dose: 0 mls/hr Albumin Human (Albuminex 25% Ivpb) 25 gm in 100 mls @ 100 mls/hr IV X1 ONE Stop: 07/05/25 07:07 Last Infusion: 07/05/25 07:16 Dose: Infused Ondansetron HCl (Ondansetron Inj 2 Mg/Ml Inj 2 Ml) 4 mg IVP X1 ONE; Protocol Stop: 07/05/25 03:01 Last Admin: 07/05/25 03:04 Dose: Not Given Ondansetron HCl (Ondansetron Inj 2 Mg/Ml Inj 2 Ml) 4 mg IVP X1 ONE; Protocol Stop: 07/05/25 06:07 Last Admin: 07/05/25 06:15 Dose: 4 mg Assessment & Plan Plan This patient is a 7-year-old female with a history of liver cirrhosis, invasive ductal breast carcinoma (right) s/p mastectomy, HLD, T2DM, hemorrhoids, and osteoporosis who presented to [facility] ED on 07/05 for acute onset generalized weakness and low blood pressures at home. Patient was admitted to the ICU for shock requiring vasopressor support. NEURO #No active problems CARDIO #Hypovolemic shock #Hemorrhagic shock Dx: Patient noted to have initial blood pressure of 77/43 in ED Hemoglobin in ED noted to be 9.7, subsequent hemoglobin: 3.8 => 6.3 Rx: Patient received 3 L of NS in ED Levophed and vasopressin Massive transfusion protocol initiated, patient has received 4 units of PRBC, 2 units of FFP, 1 unit of platelets, and 4 units of cryoprecipitate Tranexamic acid 1 g given 07/05 Calcium to be given with blood transfusion to prevent hypocalcemia Will continue to transfuse blood products () until patient can be transferred for interventional radiology services to cauterize source of bleeding PULM #Inability to protect airways Rx: Intubated 07/05 Vent on AC/VC GI #Intra-abdominal hemorrhage #Right lower lobe liver lesion, with extravasation of contrast #Hemoperitoneum Dx: CTA abdomen/pelvis 07/05 shows extravasation of contrast into the abdomen from a 5.6 x 5.5 cm liver lesion in the right lower lobe of the liver Paracentesis 07/05 bloody appearance with extensive RBC on cytology Rx: General surgery consulted, appreciate recommendations GI consulted, appreciate recommendations Plan to transfer patient to facility of higher level care for interventional radiology to cauterize liver lesion to stop hemorrhage Continue massive transfusion protocol as noted above If mechanical ventilation plateau pressure above 30, consider repeat paracentesis to decrease intra-abdominal pressure #Liver cirrhosis #Hypoalbuminemia Patient is noted to have a history of liver cirrhosis, likely secondary to fatty liver. Patient does see a GI specialist in [place]. Worsening of her liver cirrhosis possibly contributed to patient's acute decline and intra-abdominal hemorrhage Dx: Liver cirrhosis as noted in CTA abdomen/pelvis 07/05/[address] chest/abdomen/pelvis 03/17/2025 AST 37 and ALT 24 on admission INR on admission 1.9 Albumin 2.3 on admission Viral hepatitis panel negative MELD score 14 points on admission, 6% estimated 3-month mortality rate Maddrey score 33.3 points on admission, poor prognosis Paracentesis 07/05 bloody appearance with extensive RBC on cytology Ascites fluid culture collected 07/05, pending Rx: GI consulted, appreciate recommendations Patient to follow up with her outpatient GI specialist in [place] Protonix 40 mg IV twice daily Albumin 75 gm IV daily Rifaximin 550 mg twice daily Octreotide gtt in case of possible varices Ceftriaxone 1 gm daily for possible SBP NEPHRO #Hyperammonemia Likely secondary to patient's liver cirrhosis. Patient does take lactulose 30 mL every other day, however patient's liver cirrhosis likely worsened to where this lactulose regimen is unable to control her ammonia levels Rx: Lactulose 10 gm three times daily URO #No active problems HEME #Acute blood loss anemia - Plan as noted above ENDO #No active problems ID #No active problems MSK #No active problems SKIN #No active problems DVT prophylaxis: SCDs GI prophylaxis: Protonix Diet: NPO Núñez: N/A Lines: Peripheral IV, LIJ central line, arterial line, right femoral large bore transfusion line Antibiotics: Ceftriaxone CODE STATUS: FULL Vent Status: AC/VC Reason for ICU care: Hypovolemic shock requiring vasopressors Patient plan of care was discussed with the attending hand tier, Dr. Martin and senior resident Dr. Hoang (PGY-2). Shaun De La Rosa, PGY-1 Attending Provider Attestation/Addendum Patient seen and examined with above resident, Shaun De La Rosa DO. I agree with the findings, assessment, and plan of care as documented except for any differences below. Patient admitted with suspicion for GI bleed given history of cirrhosis. However no output of bright red blood per rectum or hematemesis. Patient was promptly placed on octreotide and PPI. GI was consulted as well. However patient initially stabilized with ability to wean off vasopressors. She had sudden decompensation with worsening mentation and drop in blood pressure. Increasing tachycardia. This prompted abdominal exam with ultrasound which showed some free fluid. Serial abdominal exam showed ongoing worsening distention. She subsequently required intubation for evolving shock. Lactic acid continues to rise with hemoglobin dropping to below 4. This was confirmed by lab testing on multiple attempts as there was concern for hemodilution after aggressive volume resuscitation in the emergency department. Lab assay suggested dilution component as well by machine. However given her clinical status the promptly began to resuscitated with blood products. Central access was placed in the left IJ given history of right mastectomy and lymphadenopathy. Patient also had left radial A-line placed and intubation was done without any complications. Patient initially requiring high vasopressors during aggressive resuscitation with additional 3 L of IV fluids and massive transfusion protocol initiated. Once hemodynamic stability was partially achieved, patient was promptly taken for CT abdomen after bedside ultrasound showed additional fluid and paracentesis confirmed pneumoperitoneum. CTA showed active extravasation from hepatic lesion. Further history from the patient's sons showed that they had a known MRI showing liver lesion that was to be embolized as an outpatient. They were in the process of obtaining prior authorization for this. However with the patient's decompensation we asked for emergent transfer after stabilization. She has large-bore 8-1/2 Bulgarian sheath in the right femoral vein for rapid resuscitation. Maintain normothermia and optimize metabolic acidosis. Continue to follow trends of lactate and clinically for ongoing resuscitation. She is producing urine at this point. Almost off of vasopressors and only on intermittent low-dose. Vasopressin at fixed rate continued. No stress dose steroids. Patient on propofol and fentanyl with adequate sedation. Her family has been updated throughout the day appropriately on her status and are aware that we continue to await prior authorization for transfer to tertiary facility for IR embolization. GI will assess the patient and we appreciate their input as well as our local general surgeon who agrees with need for endovascular intervention as the safest option. TXA was given to him by his time that his limited evidence for his utilization. Cryoprecipitate was used to ensure adequate fibrinogen levels and FFP was used along with platelets and a ratio of 1:1 to 1 with her ongoing PRBC transfusion. Hemoglobin after aggressive resuscitation achieved level of 9 and she remained stable pending transfer. Total critical care time: I personally spent 120 minutes for review of physiologic parameters, directing plan of care throughout the day, coordination of care with other specialists and transfer nursing, and extensive counseling of the patient and her family at bedside throughout the day. This is exclusive of time spent teaching on staff performing any separate billable procedures. Patient remains at very high risk for further morbidity and mortality warranting close monitoring care only available in the ICU. Critical care services required for hemoperitoneum secondary to extravasation from liver mass, cirrhosis, acute encephalopathy/hepatic encephalopathy, acute respiratory failure secondary to shock, hemorrhagic/hypovolemic shock.
[2025-07-05 09:00] LABS: LDH (Lactate Dehydrogenase) 198 U/L (120-246)
[2025-07-05] MEDS: cefTRIAXone/D5w 1gm IV premix 1 GM/50 ML BAG IV (09:25)
--- NOTE | 2025-07-05 11:05 | XR_ITS ---
EXAMINATION: AP chest single view TECHNIQUE: AP portable semiupright chest single view Date and time: July 05 0 25, 11:17 a.m. INDICATIONS: Post central line placement FINDINGS: Left internal jugular central line tip right atrium Mild enlargement cardiac contour Moderate vascular congestion. Pneumonia right base with small right pleural effusion IMPRESSION: Left internal jugular central line tip junction right atrium and inferior vena cava, consider retracting the central line 4 cm Pneumonia right base pneumonia
[2025-07-05] MEDS: OCTREOTIDE ACET INJ 1,000 MCG in SODIUM CHLORIDE 0.9% 100 ML 5.1 MCG IV (11:09)
[2025-07-05] MEDS: INSULIN LISPRO (AdmeLOG) 1 UNIT/0.01 ML UNIT SC (11:42)
--- NOTE | 2025-07-05 11:50 | XR_ITS ---
EXAMINATION: AP chest single view TECHNIQUE: AP portable semiupright chest single view Date and time: July 05, 2025,1158 hours, comparison July 15, 2025 11:17 a.m. INDICATION: Reposition central line FINDINGS: Left internal jugular central line tip satisfactory position SVC Chest otherwise unchanged IMPRESSION: Left internal jugular central line tip satisfactory position
[2025-07-05 11:52] LABS: Collection Type, Urine Clean Catch
[2025-07-05 12:12] LABS: Bilirubin,Urine Negative (Negative); Blood,Urine Negative (Negative); Clarity,Urine Clear (Clear/Hazy); Color,Urine Yellow (Lt Yel-Yel); Glucose, Urine 4+ (Negative); Granular Casts,Urine 1 /hpf (0-1); Hyaline Casts,Urine < 1 /hpf (0-1); Ketones,Urine Negative (Negative); Leukocyte Esterase,Urine Positive (Negative); Nitrite,Urine Negative (Negative); PH,Urine 5.5 (5.0-7.0); Protein,Urine Negative (Neg - Trace); RBC,Urine 1 /hpf (0-3); Specific Gravity,Urine 1.028 (1.001-1.035); Squamous Epithelial Cell,Urine 2 /hpf (0-5); Urobilinogen,Urine Negative mg/dL (0.0-1.0); WBC,Urine 22 /hpf (0-5)
[2025-07-05 12:13] LABS: Culture Indicated,Urine Yes
--- NOTE | 2025-07-05 12:34 | PD.RESPROC ---
PROCEDURES: Procedure Date / Time 07/05/25 Time start: 09:55 Time complete: 11:00 Procedure Narrative Procedure Narrative: Attending Attestation: I was present for entire procedure. Patient tolerated procedure well with no immediate complications. Minimal blood loss. CBC reposition for adequate placement of the tip of the catheter. No postprocedural pneumothorax. Central Line Placement Left IJ: Indication(s): shock Informed consent obtained: from patient Time out done, and the following verified: correct patient, side and site, procedure, patient position and implants and/or equipment Patient placed on monitor/pulse ox: Yes Hand Hygiene: alcohol-based hand rub Max Sterile Barrier Techniques used: cap, mask, sterile gown, sterile gloves and sterile full body drape Central line prep: Chlorhexidine scrub Local anesthesia used: lidocaine 1% Amount of anesthesia used (mL): 5 Ultrasound used for placement: Yes Sterile Technique if Ultrasound used, including sterile gel: yes Central line lumen inserted: triple Post procedure: sutured in place, good blood return, all ports aspirated, flushed, capped and sterile dressing applied Post procedure x-ray: tip of catheter in good position and no pneumothorax seen Patient tolerated procedure: well and no complications EBL(ml): 10 Complications: none Procedure comment: Procedure comment: The patient was placed in Trendelenburg position. The left neck was prepped using chlorhexidine scrub and draped in sterile fashion. Using real-time ultrasound, with sterile probe cover and sterile gel, the introducer needle was inserted into the vein under direct ultrasound visualization. Venous blood was withdrawn. The syringe was removed and a guidewire was advanced into the introducer needle. The guidewire was visualized in the appropriate vein by ultrasound. A small incision was made at the skin surface with a scalpel and the introducer needle was exchanged for a dilator over the guidewire. After appropriate dilation was obtained, the dilator was exchanged over the wire for a central venous catheter. The wire was removed and the catheter was sutured in place. A biopatch was placed at the insertion site. A sterile op-site was placed over the catheter and biopatch. The patient tolerated the procedure without any hemodynamic compromise. At time of procedure completion, all ports aspirated and flushed properly. Chest X Ray afterwards pending official read, but appeared too deep in IVC, so retracted catheter by 2-3 cm. Case disclosed with Attending Dr. Veronica De La Rosa, PGY 1
[2025-07-05 12:44] LABS: Lactate (Lactic Acid) 10.5 mMol/L (0.4-2.0)
--- NOTE | 2025-07-05 13:08 | XR_ITS ---
Examination: CTA abdomen, with intravenous contrast. CTA pelvis, with intravenous contrast. 2-D sagittal and coronal reconstructions. 3-D reconstructions. Date and time of exam: July 05, 2025, 1533 hours, comparison March 17, 2025 INDICATIONS: Abdominal pain distention low blood pressure hypoxic respiratory failure today, diagnosis malignant neoplasm inner quadrant right female breast, cirrhosis history CTDI vol (mgy) 15.3 DLP (MGycm) 773 Technique: Multiple CTA images, 2.0 mm slice thickness, obtained abdomen, pelvis, with the high-resolution 64 slice scanner. 100 cc Isovue-370 is administered intravenously. Sagittal and coronal 2-D reconstructions are obtained. 3-D reconstructions, angiographic images are obtained. 3-D postprocessing, including vascular maximum intensity projections. Low dose protocols were performed. One or more of the following dose reduction techniques were used; automated exposure control, adjustment of the mA and/or KV according to patient size, use of iterative reconstruction technique. Findings: Pneumonia right base with moderate right pleural fluid No visualized aortic dissection Limited visualization pulmonary arteries no filling defects Orogastric tube in the stomach Cirrhosis, liver irregular in contour 20 mm posterior right lobe liver lesion image 64 5.6 x 5.5 cm enhancing mass lower right lobe of the liver, coronal image 108, possible active bleeding in this liver mass Prominent ascites Orogastric tube tip in the stomach Gallstones Spleen is not enlarged No pancreatic mass No hydronephrosis Aorta normal size No bowel obstruction Atrophic uterus Severe osteopenia Advanced degenerative disc disease L5-S1 Urinary bladder contracted around a Núñez catheter IMPRESSION: Pneumonia right base with moderate right pleural effusion Cirrhosis 20 mm nonenhancing posterior right lobe liver lesion 5.6 x 5.5 cm enhancing right lower lobe liver lesion, with possible active bleeding in this liver mass Differential for both of these lesions would include multifocal primary hepatocellular carcinoma, hepatic metastases Significant ascites No bowel obstruction
[2025-07-05 13:38] LABS: Allen Test Performed/OK; Base Excess -13 (-3-3); HCO3 13 mEq/L (20-26); Inspired Oxygen, FIO2 21 %; O2 Saturation 100 % (91-98); PCO2 25 mmHg (32.0-48.0); PO2 143 mmHg (83-108); Puncture Site Right Brachial; pH, Arterial 7.32 (7.35-7.45)
[2025-07-05] MEDS: ETOMIDATE INJ 2 MG/ML VIAL 10 ML 20 MG IVP (14:03)
[2025-07-05] MEDS: ROCURONIUM INJ 10 MG/ML VIAL 10 ML 80 MG IV (14:04)
[2025-07-05] MEDS: fentaNYL 2,500 MCG/250 ML BAG 2,500 MCG/250 ML BAG IV (14:15)
[2025-07-05] MEDS: PROPOFOL 1,000 MG IVPB 1,000 MG/100 ML VIAL 2.177 MG IV (14:15)
--- NOTE | 2025-07-05 14:30 | ESOP_ITS ---
PROCEDURES: Procedure Date / Time 07/05/25 1404 Procedure Narrative Procedure Narrative: Attending Attestation: I was present for entire procedure. Patient tolerated procedure well with no immediate complications. Follow-up chest x-ray shows adequate placement of the tip of the ET tube above the bobby. Intubation Indication(s): inability to protect airway Informed consent obtained: from patient Time out done, and the following verified: correct patient, side and site, procedure, patient position and implants and/or equipment Sedative: etomidate Mg given: 20 Sedative #2: none Paralytic: rocuronium Mg given: 80 Laryngoscope: fiber optic video scope Assist device used: fiber optic device ET tube size: 7.5 ET tube uncuffed: Yes Tube secured depth (cm): 50 Tube secured location: other Tube placement confirmation: visualized tube passing through cords, equal breath sounds bilaterally, no breath sounds over epigastrium and confirmation by capnometry Patient tolerated procedure: well and no complications EBL(ml): 0 Intubation complications: none Additional comments: PROCEDURE SUMMARY: Surgical cap, mask, and gloves were worn throughout the procedure. The patient was on a cardiac nurse specialist including continuous pulse oximetry. The patient was taken off OxyMask and placed in the supine position. He was bagged and preoxygenated to 95%. Rapid Sequence Intubation was conducted. The patient received 20 mg of etomidate for induction and 80 mg of rocuronium for adequate paralysis. Using a fiber optic video laryngoscope and a size 7.5 endotracheal tube with stylet, the patient was intubated on the first attempt. The stylet was removed and cuff balloon was inflated. Appropriate endotracheal tube position was confirmed by direct visualization of vocal cord passage, fogging of the tube, CO2 colormetric indicator and symmetric breath sounds. The tube was secured at 50 cm at the teeth. Post intubation chest x-ray is pending at this time. Procedure completed under the supervision of distributed energy systems consultant Dr. Martin. Shaun De La Rosa, PGY-1 Internal Medicine
[2025-07-05] MEDS: Calcium Chloride 10% Abboject 10 ML in DEXTROSE 5%-WATER 100 ML 110 ML IV (14:50)
[2025-07-05 15:40] LABS: Reflex Lactate? Y
--- NOTE | 2025-07-05 16:00 | PD.RESPROC ---
PROCEDURES: Procedure Date / Time 07/05/25 1545 Procedure Narrative Procedure Narrative: Attending Attestation: I was present for entire procedure. Patient tolerated procedure well with no immediate complications. Sample sent for fluid analysis and cytology. Arterial Line Size (Gauge): 16 Paracentesis Indication: Ascites Informed consent obtained: obtained from surrogate decision maker Time out done, and the following verified: correct patient, side and site, procedure, patient position and implants and/or equipment Procedure: diagnostic paracentesis Location: RLQ Local anesthetic used: lidocaine 2% Amount of anesthesia used (mL): 10 Bedside ultrasound used: yes, real-time guidance Preparation: sterile prep and drape Amount of fluid obtained (mL): 50 Fluid: bloody and sent to lab for analysis Size of needle used: 5 EBL(ml): 5 Post procedure exam: other Patient tolerated procedure: no complications Complications: none Procedure comment: Case disclosed with and overseen by attending physician Dr. Veronica De La Rosa, PGY 1
--- NOTE | 2025-07-05 16:32 | PC.CM ---
Addendum entered by Danelle Gamez RN 07/05/25 19:39: I called and updated ICU charge nurse. Addendum entered by Danelle Gamez RN 07/05/25 19:26: Patient needs embolization of liver lesion bleed. Declined by [facility], and [facility] due to not have IR available. I initiated transfer with [place]. I started packet and I made a CD. I left packet on transfer nurse desk.? Addendum entered by Danelle Gamez RN 07/05/25 18:11: 1810 I recived a call from Ashlee with [facility] transer center. They declined patient due to IR services not available. 1805 I receive a call from Corinne with [facility] transfer center. She states they will have to decline patient due to capacity. Addendum entered by Danelle Gamez RN 07/05/25 17:48: 1720 I received a call from Coral at [facility]. She states they do not have IR in the [place] area. She states she is waiting for a call back from [facility] to see if they have IR services available. She states she will get back to me. Addendum entered by Danelle Gamez RN 07/05/25 17:36: 1715 I faxed over information to [facility] and I left a message with the transfer center. Addendum entered by Danelle Gamez RN 07/05/25 17:28: 1705 I spoke to Ashlee at the transfer center at [facility] and I presented the patient. She states she will review information and get back to me. I let her know I already faxed over information. 1625 I received a call from Dr. Hoang stating he spoke to family and patient was seen by Dr. Heriberto Viramontes in [facility]. I faxed information to [facility] and I called transfer center and I present the patient. Addendum entered by Danelle Gamez RN 07/05/25 16:41: 1620 I pushed over images to [facility] transfer [place]. Original Note: 1615 I contacted the transfer center at [facility] and I spoke to Devendra. I faxed information at this time. I provided information and let the transfer nurse know patient is an emergent life or limb transfer due to bleeding out. I started transfer packet and I will make a CD. [id number] I received a referral for IR for embolization of an active bleed liver lesion.
[2025-07-05] MEDS: TRANEXAMIC ACID 1,000 MG IVPB 1,000 MG/100 ML BAG 200 MG IV (16:36)
--- NOTE | 2025-07-05 16:40 | XR_ITS ---
EXAMINATION: AP chest single view TECHNIQUE: AP portable supine chest single view Date and time: July 05, 2025, 1654 hours, comparison July 05, 2025 11:58 a.m. INDICATIONS: Hypoxic respiratory failure post intubation. FINDINGS: Mild enlargement cardiac contour Prominent vascular congestion Perihilar edema and/or pneumonia Left internal jugular central line tip SVC satisfactory position Tracheal tube tip 3.6 cm above bobby. Orogastric tube in the stomach IMPRESSION: More prominent perihilar edema and/or pneumonia, clinical correlation advised Left internal jugular central line tip satisfactory position Endotracheal tube tip 3.6 cm above bobby
--- NOTE | 2025-07-05 16:46 | PD.RESDS ---
Planned Discharge Date 07/05/25 DS: Providers Provider Date of admission: 07/05/25 07:46 Primary care physician: Amairani Barros MD Admitting Provider: Tom Martin MD Attending Provider on Admission: Tom Martin MD Consults: 07/05/25 16:04 Consult to Gastroenterology Routine Comment: Consulting Provider: Kay Obrien Consult to General Surgery Routine Comment: Consulting Provider: Lulu Jasso Referral - Litigation Support Analyst Stat Service Needed for Transfer: Interventional Radiology Addl Comments:: Need embolization for active bleeding liver lesion Attending Provider on DC: Tom Martin MD Discharging Provider: Tom Martin MD Anticipated date of discharge: 07/05/25 DS: Diagnosis Problem List Completed Was Problem List Reviewed/Reconciled?: Yes Hospital Course Status at Discharge Cognitive/behavioral status at discharge: Reason for hospitalization: Shock requiring pressors Summary: The patient is a 74-year-old female with a history of atrial fibrillation, liver cirrhosis, invasive ductal breast carcinoma (right) s/p mastectomy, HLD, T2DM, hemorrhoids, and osteoporosis who presented to [facility] ED on 07/04 for acute onset weakness with soft blood pressures. Patient was admitted to the ICU for management of shock requiring pressors. In the ED, the patient initially had a blood pressure of 77/43, afebrile, and alert and oriented x 3. Hemoglobin in the ED was noted to be 9.7 with lactic acidosis, so the patient was given 2 L of NS, but continued to have low pressures, prompting initiation of Levophed. Repeat hemoglobin noted to be 3.8, which was repeated once more given suspicion for dilution, however repeat hemoglobin was noted to be even lower. When the patient was brought up to the ICU, Dario hugger was initiated for low body temperature, central line was placed in the left IJ and blood products were started given suspicion for acute bleed, however it was noted that the patient had no incidence of bloody vomitus nor bloody stools. Arterial line was inserted for closer blood pressure monitoring and blood draws. FOBT was positive, however given the patient's history of hemorrhoids, another source of bleeding was suspected, especially as the patient's blood pressure started to drop significantly with a large pulse pressure and increasing size of her abdomen compared to in the ED. Ultrasound of the abdomen did show fluid in the abdomen that was sufficient for paracentesis. However, prior to paracentesis, given the patient's instability, it was determined that the patient required urgent intubation for stabilization and CTA abdomen/pelvis to determine source of suspected abdominal bleed. CTA of the abdomen/pelvis was significant for a 5.6 x 5.5 cm enhancing right lower lobe liver lesion with extravasation of contrast into the abdomen. Paracentesis of the abdomen was performed, which resulted in serosanguineous fluid being obtained. The case was discussed with both general surgery and GI. Given the source of the hemorrhage being located at the liver, in-house general surgery recommended urgent transfer to facility of higher care given lack of experience and tools available to manage hemorrhage from the liver. Initiated transfer to facility of higher level care for massive intra-abdominal hemorrhage from the patient's liver lesion. As of time of this discharge summary, massive transfusion protocol has been initiated and the patient has received 2 units of PRBC with an additional 2 units of PRBC, 2 units of FFP, 1 unit of platelets (no additional units of platelets in stock at [facility]), and 4 units of cryoprecipitate being transfused. Patient remains sedated and tranexamic acid was given. The patient is currently stable for urgent transfer to facility of higher level care so that she may receive embolization of her liver lesion by interventional radiology. Hospital Diagnoses: #Intra-abdominal hemorrhage, requiring massive transfusion #Right lower lobe liver lesion, 5.6 x 5.5 cm, with extravasation of contrast on CTA abdomen/pelvis #Hypovolemic shock #Acute blood loss anemia #Hemoperitoneum #Lactic acidosis #Atrial fibrillation #Liver cirrhosis #History of invasive ductal breast carcinoma, right, status post mastectomy #HLD #T2DM #Hemorrhoids #Osteoporosis Patient plan of care was discussed with the senior resident Dr. Hoang (PGY-2) and attending physician Dr. Veronica De La Rosa, PGY-1 Overall status at discharge: patient is not back to baseline Time Spent with Patient Time attestation: Total time spent providing and/or coordinating discharge services: Time spent: Greater than 30 minutes Exam Vital Signs Temp Pulse Resp BP Pulse Ox O2 Del Method O2 Flow Rate 95.5 F L 94 22 H 146/50 H 100 Room Air 100 07/05/25 16:14 07/05/25 16:14 07/05/25 16:14 07/05/25 16:14 07/05/25 14:15 07/05/25 10:05 07/05/25 14:37 FiO2 100 07/05/25 14:15 Narrative Exam Physical Exam: General: Intubated Skin: Cool, dry, intact. Jaundiced. Head: Normocephalic, atraumatic. Spider angioma noted on face. Cardiovascular: Regular rate and rhythm, no murmur, +S1/S2. Respiratory: Lungs are clear to auscultation, respirations unlabored, no crackles, no wheezing. Gastrointestinal: Soft, diffusely tender to palpation, distended. No guarding or rebound tenderness. Extremities: No edema, no cyanosis, no clubbing. Discharge Plan Problem List Was Problem List Reviewed/Reconciled?: Yes Prescriptions/Referrals Prescriptions/Med Rec: No Action albuterol sulfate [Proventil HFA] 6.7 GM HFA aerosol inhaler 2 puff Inhalation Q6HR PRN (Reason: WHEEZING) Qty: 0 Januvia 50 MG tablet 50 mg PO QDAY Qty: 0 alendronate 70 mg Tablet 70 mg PO QWEEK Rx Instructions: SUNDAY omeprazole 40 mg Capsule,Delayed Release(Dr/Ec) 40 mg PO QDAY lactulose [Constulose] 10 gram/15 mL Solution 30 ml PO EVERYOTHERDAY budesonide-formoterol [Symbicort] 80-4.5 mcg/actuation Hfa Aerosol Inhaler 2 puff INHALATION BID montelukast 10 mg Tablet 10 mg PO DAILY atorvastatin 10 mg Tablet 10 mg PO DAILY metoprolol succinate 25 mg Tablet Extended Release 24 Hr 25 mg PO DAILY tamoxifen 20 mg tablet 20 mg PO DAILY Farxiga 5 mg Tablet 5 mg PO DAILY amoxicillin-pot clavulanate 500-125 mg Tablet 500 mg PO BID Qty: 14 0RF Referrals: Amairani Barros MD [Primary Care Provider, Nephrology] Patient/Caregiver Discharge Instructions Print Language: Thai Quality Discharge Quality Measures VTE prophylaxis MD Attestestation MD Attestation I have reviewed and agree with documentation as per above. Patient pending transfer to tertiary facility for IR embolization of hepatic lesion. She remains hemodynamically stable for transfer. Low-dose vasopressor support with sedation. See my attestation to same-day H&P for full details of plan of care.
[2025-07-05 17:18] LABS: Peritoneal Fluid Mononuclear 44.4 %; Peritoneal Fluid Polynuclear 55.6 %; Peritoneal Fluid WBC 2902 /cmm
[2025-07-05 17:23] LABS: Lactate (Lactic Acid) 7.7 mMol/L (0.4-2.0)
[2025-07-05 17:23] LABS: Peritoneal Fluid Appearance Bloody; Peritoneal Fluid Color Red
[2025-07-05 17:30] LABS: Albumin, Peritoneal Fluid 2.6 gm/dL; Amylase,Peritoneal Fluid 34 IU/L; Glucose,Peritoneal Fluid 191 mg/dL; LDH,Peritoneal Fluid 195 IU/L; Protein Total,Peritoneal Fluid 4 g/dL
[2025-07-05 17:39] LABS: Basophils # (Auto) 0.0 Thou/mm3 (0.0-0.2); Basophils % (Auto) 0 % (0-2.5); Eosinophils # (Auto) 0.1 Thou/mm3 (0.0-0.5); Eosinophils % (Auto) 2 % (0-10); Immature Granulocytes Auto 0.07 Thou/mm3 (0.00-0.00); Lymphocytes # (Auto) 1.1 Thou/mm3 (1.0-4.8); Lymphocytes % (Auto) 16 % (10-50); Mean Corpuscular HGB Conc 33.5 g/dl (31.0-37.0); Mean Corpuscular Hemoglobin 28.9 pg (25.0-35.0); Mean Corpuscular Volume 86 fL (80-100); Monocytes # (Auto) 0.7 Thou/mm3 (0.0-0.8); Monocytes % (Auto) 9 % (0-12); Neutrophils # (Auto) 5.2 Thou/mm3 (1.8-7.7); Neutrophils % (Auto) 73 % (37-80); Nucleated Red Blood Cell # 0.00 Thou/mm3 (0.00-0.00); Nucleated Red Blood Cell % 0 /100 WBC (0); Platelet Count 88 Thou/mm3 (140-440); RDW Standard Deviation 47.2 fL (36.4-46.3); Red Blood Count 2.18 Miln/mm3 (4.00-5.20); White Blood Count 7.2 Thou/mm3 (3.6-11.0)
[2025-07-05 17:45] LABS: Hematocrit 18.8 % (36.0-46.0)
[2025-07-05 17:46] LABS: Hemoglobin 6.3 g/dL (12.0-16.0)
[2025-07-05] MEDS: VASOPRESSIN IN NS IVPB 20 UNIT/100 ML BAG 9 UNIT IV (17:49)
[2025-07-05 17:56] LABS: Fibrinogen 132 mg/dL (175-375)
[2025-07-05] MEDS: CALCIUM CHLORIDE 10% IV (18:01)
[2025-07-05] MEDS: SODIUM CHLORIDE 0.9% IV (18:01)
[2025-07-05 18:03] LABS: Allen Test Not Performed; Base Excess -13 (-3-3); HCO3 13 mEq/L (20-26); Inspired Oxygen, FIO2 60 %; O2 Saturation 100 % (91-98); PCO2 31 mmHg (32.0-48.0); PO2 170 mmHg (83-108); Puncture Site Arterial Line; pH, Arterial 7.25 (7.35-7.45)
[2025-07-05 18:07] LABS: Alanine Aminotransferase 31 U/L (10-49); Albumin, Serum 2.9 gm/dL (3.4-4.8); Albumin/Globulin Ratio 2.6 (1.2-2.2); Alkaline Phosphatase 44 U/L (46-116); Anion Gap 17 (7-16); Aspartate Amino Transferase 78 U/L (0-34); BUN/Creatinine Ratio 13 Ratio (12-20); Bilirubin,Total 1.7 mg/dL (0.3-1.2); Blood Urea Nitrogen 9 mg/dL (9-23); Calcium 8.3 mg/dL (8.3-10.6); Calcium (Corrected) 9.2 mg/dL (8.5-10.1); Chloride 116 mMol/L (98-107); Creatinine (Component) 0.7 mg/dL (0.6-1.3); Estimated Creatinine Clearance 67.3 mL/min (>60); Globulin 1.1 gm/dL (2.3-3.5); Glucose 169 mg/dL (74-106); Osmolality,Calculated 289 (275-295); Potassium 5.8 mMol/L (3.4-5.1); Sodium 144 mMol/L (136-145); Total Protein 4.0 gm/dL (5.7-8.2); eGFR > 60 See Note
[2025-07-05 18:08] LABS: Carbon Dioxide 11.3 mMol/L (20.0-31.0)
--- NOTE | 2025-07-05 18:16 | PD.RESPROC ---
PROCEDURES: Procedure Date / Time 07/05/25 14:25 Procedural Time Out Time out performed: yes Procedure Narrative Procedure Narrative: Attending Attestation: I was present for the entire procedure. No immediate complications. Minimal blood loss. Arterial Line Indication(s): frequent arterial line sampling and shock Informed consent obtained: obtained from surrogate decision maker Time out done, and the following verified: correct patient, side and site, procedure, patient position and implants and/or equipment Size (Gauge): 16 Technique used: guide wire technique Post-Procedure: line sutured into place and dry sterile dressing placed Patient tolerated procedure: well EBL(ml): 10 Complications: none Site: left Procedure comment: L radial A-line A time out was performed. My hands were washed immediately prior to the procedure. I wore a surgical cap, mask, sterile gown and sterile gloves throughout the procedure.The left wrist was prepped using chlorhexidine scrub and draped in sterile fashion. The radial pulse was identified and the wrist was positioned in the usual fashion. Using the Arrow Radial Arterial Line Kit, a needle was inserted into the radial artery. Arterial blood was seen to pulsate in the flash chamber. The internal guidewire was advanced easily into the radial artery. The catheter was then advanced over the wire and the needle and wire were withdrawn. The catheter was sutured in place. A sterile opsite was placed over the catheter at the insertion site. The patient tolerated the procedure without any hemodynamic compromise. At the time of procedure completion, the catheter was connected to the home sales service professional and calibrated. Appropriate waveform and blood pressure tracing was observed. Case discussed and supervised by attending Dr. Veronica Jaeger MD PGY1
[2025-07-05] MEDS: Sodium Bicarb Inj 8.4% SYR 50 ML SYRINGE 100 ML IV (19:26)
[2025-07-05] MEDS: INSULIN HUM REGULAR 1 UNIT/0.01 ML (PER UNIT) 5 UNIT IV (19:27)
[2025-07-05] MEDS: DEXTROSE 50%-WATER INJ 50 ML SYRINGE IVP (19:27)
[2025-07-05] MEDS: CALCIUM GLUCONATE 10% INJ 1 GM/10 ML VIAL IV (19:36)
[2025-07-05 20:17] LABS: Reflex Lactate? Y
--- NOTE | 2025-07-05 20:19 | PD.IMCONS ---
HPI Data of Consult Requesting Physician: Tom Martin MD Primary Care Provider: Amairani Barros MD Consult Narrative Reason for consult: Drop in hemoglobin hematocrit abnormal CTA abdomen History of present illness: 74 years old female evaluated in the ICU was mechanically ventilated I was called earlier this afternoon for drop in hemoglobin hematocrit and patient being FOBT positive Her presenting hemoglobin hematocrit was 9.7 and 29.4 although on 06/03/2025 it was 13.0 and 39.5 Hemoglobin hematocrit drastically dropped down to 3.8 and 12.2 with a platelet count of 93,000 and an ammonia level of 96 CO2 dropped down to 11.3 and a lactic acid jumped up to 10.5 After discussion with internal medicine resident a stat CTA was planned which showed a 5.6 x 5.5 cm lesion in the right lobe of the liver possibly bleeding an additional 20 mm lesion in the right lobe of the liver could be a bleeding hemangioma or a bleeding multifocal hepatocellular carcinoma No active bleeding through the orogastric tube or or bleeding per rectum CT also showed cirrhotic liver disease ascites cholelithiasis ammonia right base and irregular contour of the liver cc:: cc: Tom Martin MD Review of Systems Review of Systems ROS Unobtainable: unobtainable due to medical condition Meds Home Medications and Allergies Home Medications ?Medication ?Instructions ?Recorded ?Confirmed ?Type albuterol sulfate 90 mcg/actuation 2 puff inhalation Q6HR PRN 04/26/16 12/22/22 History aerosol inhaler (Proventil HFA) WHEEZING #0 inhalations sitagliptin phosphate 50 mg tablet 50 mg PO QDAY #0 tabs 09/10/17 12/22/22 History (Januvia) alendronate 70 mg tablet 70 mg PO QWEEK 09/04/18 12/22/22 History budesonide-formoterol HFA 80 2 puff inhalation BID 09/04/18 12/22/22 History mcg-4.5 mcg/actuation aerosol inhaler (Symbicort) lactulose 10 gram/15 mL oral 30 ml PO EVERYOTHERDAY 09/04/18 12/22/22 History solution (Constulose) omeprazole 40 mg capsule,delayed 40 mg PO QDAY 09/04/18 12/22/22 History release montelukast 10 mg tablet 10 mg PO DAILY 02/20/19 12/22/22 History atorvastatin 10 mg tablet 10 mg PO DAILY 12/22/22 12/22/22 History dapagliflozin propanediol 5 mg 5 mg PO DAILY 12/22/22 12/22/22 History tablet (Farxiga) metoprolol succinate 25 mg 25 mg PO DAILY 12/22/22 12/22/22 History tablet,extended release 24 hr tamoxifen 20 mg tablet 20 mg PO DAILY 12/22/22 12/22/22 History Allergies Allergy/AdvReac Type Severity Reaction Status Date / Time No Known Allergies Allergy Verified 12/21/22 22:56 Exam Vital Signs Temp Pulse Resp BP Pulse Ox O2 Del Method O2 Flow Rate 98.8 F 104 H 22 H 144/49 H 99 Room Air 100 07/05/25 20:16 07/05/25 20:16 07/05/25 20:16 07/05/25 20:16 07/05/25 20:16 07/05/25 10:05 07/05/25 14:37 FiO2 60 07/05/25 16:00 Constitutional Comments: Chronically ill-appearing Routine Respiratory Exam Comments: Mechanically ventilated Routine Abdominal Exam Comments: Distended abdomen positive bowel sounds Results Labs 07/05/25 17:09 07/05/25 17:09 Labs: Short CBC 07/05/25 07/05/25 07/05/25 Range/Units 03:39 06:55 17:09 WBC 9.2 7.2 (3.6-11.0) Thou/mm3 Hgb 9.7 L 3.8 L* D 6.3 L* D (12.0-16.0) g/dL Hct 29.4 L 12.2 L* 18.8 L* (36.0-46.0) % Plt Count 93 L D 88 L (140-440) Thou/mm3 BMP 07/05/25 07/05/25 03:39 17:09 Sodium 140 144 Potassium 4.8 5.8 H D Chloride 109 H 116 H Carbon Dioxide 21.8 11.3 L* BUN 7 L 9 Creatinine 0.8 0.7 Glucose 272 H 169 H D Calcium 8.3 8.3 Cardiac Enzymes 07/05/25 Range/Units 03:39 Troponin I < 0.002 (0.0-0.045) ng/mL Liver Function 11/09/25 11/09/25 Range/Units 03:39 17:09 Total Bilirubin 1.1 1.7 H D (0.3-1.2) mg/dL AST 37 H 78 H (0-34) U/L ALT 24 31 (10-49) U/L Alkaline Phosphatase 87 44 L D (46-116) U/L Albumin 2.3 L 2.9 L D (3.4-4.8) gm/dL Urine 07/05/25 Range/Units 11:34 Urine Color Yellow (Lt Yel-Yel) Urine Clarity Clear (Clear/Hazy) Urine pH 5.5 (5.0-7.0) Ur Specific [place] 1.028 (1.001-1.035) Urine Protein Negative (Neg - Trace) Urine Glucose (UA) 4+ A (Negative) ABG Interpretation ABG results: 07/05/25 07/05/25 13:32 17:35 ABG pH 7.32 L 7.25 L ABG pCO2 25 L 31 L ABG pO2 143 H 170 H D ABG HCO3 13 L 13 L ABG O2 Saturation 100 H 100 H ABG Base Excess -13 L -13 L Assessment and Plan Additional Assessment & Plan Additional Plan: # Bleeding right hepatic lobe either a bleeding hemangioma or multifocal primary hepatocellular carcinoma or metastatic disease # Metabolic and lactic acidosis # Mechanically ventilated Plan Case discussed with the internal medicine team Transfer the patient to a higher level of care for embolization of the bleeding liver lesion And may be later on biopsy of the 20 mm lesion to see if it is a carcinoma Recommend AFP Monitor labs Will follow the patient Thank you for the opportunity to evaluate this challenging patient PROCEDURES: Arterial Line Size (Gauge): 16
[2025-07-05 21:19] LABS: Base Excess -8 (-3-3); HCO3 19 mEq/L (20-26); Inspired Oxygen, FIO2 60 %; O2 Saturation 99 % (91-98); PCO2 45 mmHg (32.0-48.0); PO2 102 mmHg (83-108); pH, Arterial 7.24 (7.35-7.45)
[2025-07-05 21:22] LABS: Lactic Acid, 3 HR 6.0 mMol/L (0.4-2.0)
[2025-07-05 21:22] LABS: Allen Test Not Performed; Puncture Site Arterial Line
[2025-07-05 21:34] LABS: Hematocrit 26.7 % (36.0-46.0); Hemoglobin 9.1 g/dL (12.0-16.0)
[2025-07-05 21:35] LABS: Lactate (Lactic Acid) 6.1 mMol/L (0.4-2.0)
[2025-07-05 21:56] LABS: AFP Non-Pregnant 12.60 ng/mL (<8.10)
[2025-07-05 21:58] LABS: Albumin, Serum 3.0 gm/dL (3.4-4.8); Anion Gap 13 (7-16); BUN/Creatinine Ratio 15 Ratio (12-20); Blood Urea Nitrogen 12 mg/dL (9-23); Calcium 9.0 mg/dL (8.3-10.6); Calcium (Corrected) 9.8 mg/dL (8.5-10.1); Carbon Dioxide 18.9 mMol/L (20.0-31.0); Chloride 115 mMol/L (98-107); Creatinine (Component) 0.8 mg/dL (0.6-1.3); Estimated Creatinine Clearance 58.9 mL/min (>60); Glucose 239 mg/dL (74-106); Osmolality,Calculated 300 (275-295); Phosphorous 5.4 mg/dL (2.4-5.1); Potassium 5.0 mMol/L (3.4-5.1); Sodium 147 mMol/L (136-145); eGFR > 60 See Note
[2025-07-05] MEDS: Sodium Bicarb Inj 8.4% SYR 50 ML SYRINGE IV (22:14)
[2025-07-05] MEDS: FUROSEMIDE INJ 10 MG/ML 4ML VIAL 40 MG IVP (23:47)
[2025-07-06] VITALS (188 sets, daily range): BP systolic 0–157; BP diastolic 0–101; PULSE 76–94; RESP 14–29; TEMP 37.1–37.7; O2SAT 50–99; BMI 34.2
[2025-07-06 00:11] LABS: Reflex Lactate? Y
[2025-07-06 00:46] LABS: Lactic Acid, 3 HR 4.9 mMol/L (0.4-2.0)
[2025-07-06 00:53] LABS: Hematocrit 26.1 % (36.0-46.0); Hemoglobin 9.3 g/dL (12.0-16.0)
[2025-07-06] MEDS: fentaNYL 2,500 MCG/250 ML BAG 2,500 MCG/250 ML BAG 30 MCG IV ×3 (01:21→17:32)
[2025-07-06 01:49] LABS: Albumin, Serum 3.1 gm/dL (3.4-4.8); Anion Gap 12 (7-16); BUN/Creatinine Ratio 14 Ratio (12-20); Blood Urea Nitrogen 14 mg/dL (9-23); Calcium 9.1 mg/dL (8.3-10.6); Calcium (Corrected) 9.8 mg/dL (8.5-10.1); Carbon Dioxide 20.9 mMol/L (20.0-31.0); Chloride 116 mMol/L (98-107); Creatinine (Component) 1.0 mg/dL (0.6-1.3); Estimated Creatinine Clearance 47.1 mL/min (>60); Glucose 213 mg/dL (74-106); Osmolality,Calculated 302 (275-295); Phosphorous 4.5 mg/dL (2.4-5.1); Potassium 4.6 mMol/L (3.4-5.1); Sodium 149 mMol/L (136-145); eGFR 59 See Note
[2025-07-06 02:11] LABS: Allen Test Not Performed; Base Excess -4 (-3-3); HCO3 21 mEq/L (20-26); Inspired Oxygen, FIO2 40 %; O2 Saturation 98 % (91-98); PCO2 40 mmHg (32.0-48.0); PO2 85 mmHg (83-108); Puncture Site Arterial Line; pH, Arterial 7.33 (7.35-7.45)
[2025-07-06] MEDS: OCTREOTIDE ACET INJ 1,000 MCG in SODIUM CHLORIDE 0.9% 100 ML 5.1 MCG IV ×2 (03:05→22:30)
[2025-07-06] MEDS: VASOPRESSIN IN NS IVPB 20 UNIT/100 ML BAG 9 UNIT IV ×2 (04:02→15:20)
[2025-07-06] MEDS: PROPOFOL 1,000 MG IVPB 1,000 MG/100 ML VIAL 6.532 MG IV (04:45)
[2025-07-06 05:06] LABS: Basophils # (Auto) 0.0 Thou/mm3 (0.0-0.2); Basophils % (Auto) 1 % (0-2.5); Eosinophils # (Auto) 0.3 Thou/mm3 (0.0-0.5); Eosinophils % (Auto) 4 % (0-10); Hematocrit 25.2 % (36.0-46.0); Immature Granulocytes Auto 0.04 Thou/mm3 (0.00-0.00); Lymphocytes # (Auto) 1.1 Thou/mm3 (1.0-4.8); Lymphocytes % (Auto) 14 % (10-50); Mean Corpuscular HGB Conc 34.5 g/dl (31.0-37.0); Mean Corpuscular Hemoglobin 28.9 pg (25.0-35.0); Mean Corpuscular Volume 84 fL (80-100); Monocytes # (Auto) 0.8 Thou/mm3 (0.0-0.8); Monocytes % (Auto) 9 % (0-12); Neutrophils # (Auto) 5.8 Thou/mm3 (1.8-7.7); Neutrophils % (Auto) 72 % (37-80); Nucleated Red Blood Cell # 0.02 Thou/mm3 (0.00-0.00); Nucleated Red Blood Cell % 0 /100 WBC (0); Platelet Count 129 Thou/mm3 (140-440); RDW Standard Deviation 48.0 fL (36.4-46.3); Red Blood Count 3.01 Miln/mm3 (4.00-5.20); White Blood Count 8.1 Thou/mm3 (3.6-11.0)
[2025-07-06 05:17] LABS: Hemoglobin 8.7 g/dL (12.0-16.0)
[2025-07-06 05:33] LABS: Alanine Aminotransferase 122 U/L (10-49); Albumin, Serum 3.3 gm/dL (3.4-4.8); Albumin/Globulin Ratio 2.5 (1.2-2.2); Alkaline Phosphatase 53 U/L (46-116); Anion Gap 12 (7-16); Aspartate Amino Transferase 279 U/L (0-34); BUN/Creatinine Ratio 13 Ratio (12-20); Bilirubin,Total 3.7 mg/dL (0.3-1.2); Blood Urea Nitrogen 16 mg/dL (9-23); Calcium 9.4 mg/dL (8.3-10.6); Calcium (Corrected) 10.0 mg/dL (8.5-10.1); Carbon Dioxide 22.6 mMol/L (20.0-31.0); Chloride 114 mMol/L (98-107); Creatinine (Component) 1.2 mg/dL (0.6-1.3); Estimated Creatinine Clearance 39.3 mL/min (>60); Globulin 1.3 gm/dL (2.3-3.5); Glucose 184 mg/dL (74-106); Magnesium 1.6 mg/dL (1.6-2.6); Osmolality,Calculated 302 (275-295); Phosphorous 4.5 mg/dL (2.4-5.1); Potassium 4.4 mMol/L (3.4-5.1); Sodium 149 mMol/L (136-145); Total Protein 4.6 gm/dL (5.7-8.2); eGFR 48 See Note
[2025-07-06] MEDS: Magnesium Sulfate 2 GM Ivpb 2 GM/50 ML BAG IV (05:55)
[2025-07-06 06:04] LABS: Fibrinogen 218 mg/dL (175-375)
[2025-07-06 07:24] LABS: Base Excess, Venous -4 (-3-3); O2 Saturation, Venous 95 % (96-97); PCO2, Venous 41 mmHg (36-56); PO2, Venous 66 mmHg (15-58); pH, Venous 7.33 (7.33-7.66)
[2025-07-06 07:40] LABS: Lactate (Lactic Acid) 4.5 mMol/L (0.4-2.0)
--- NOTE | 2025-07-06 08:06 | PC.CC ---
Addendum entered by Stacy Clark RN 07/06/25 19:13: Updated clinicals and DC summary added to transfer packet. Transfer packet w 1 CD and REACH packet taken to ICU and given to Charge Kathryn. Handff provided. Transfer back agreement will need to be sent back to [facility] when all signatures are collected. Bedside Nurse Kenny made aware and will obtain the required signatures. Addendum entered by tSacy Clark RN 07/06/25 19:11: 1836: Called [facility] , Theodora confirmed pt was accepted by DR. Timmy Carreon, pending bed availablity. 1834: Received call from Dr. Hoang informing me that per Dr Martin, pt was accepted by [facility]. Addendum entered by Stacy Clark RN 07/06/25 18:00: 1753: Called Dr. Hoang back and provided the update. 1750: I called [facility] for f/u, Theodora stated her colleague is currently on the phone with the Medicine Senior Business Manager presenting the case. They will call back with the determination. She stated if patient is accepted, they will reach out to Dr. Martin for peer to peer. 1748: received call from Dr. Hoang requesting an update. informed him i planned to call [facility] at 1800 for an update. He stated he was hoping patient would get transferred out today. He asked if i have been searching for other facilities, i told him i was not as he had told me not to earlier today. He stated that he thought it would cancel [facility] reviewing if we looked elsewhere. I informed him we can continue to search. Addendum entered by Stacy Clark RN 07/06/25 13:49: 1346: spoke to Aisha ortiz/ [facility], pt is financially cleared and will now proceed with MD review and will reach back out for peer to peer call when reviewed and if necessary. Addendum entered by Stacy Clark RN 07/06/25 12:31: 1203: received call back from Anne-Marie ortiz/ [facility]. She stated IR is not an accepting service line. She stated it would be under Medicine with IR to consult. Since we have medicine, there would be no need to transfer. Will continue to work with [facility] for transfer at this time. Addendum entered by Stacy Clark RN 07/06/25 11:47: 1146: called [facility] to f/u if IR service was available today, left . Addendum entered by Stacy Clark RN 07/06/25 10:31: 1031: updated clinicals sent to [facility]. Addendum entered by Stacy Clark RN 07/06/25 10:14: 1007: Called [facility], spoke to Loreta. She stated they are still at capacity. 0959: received call from Dr. Hoang requesting status of transfer and insurance auth. He stated that this is a life and situation and would like to bypass insurance auth. I informed him that we don't have an accepting facility as of yet. [facility] has not accepting patient. I asked if he wanted me to try other facilities d/t life and situation, he stated not at this time since the patient is stable at this time. The team would prefer the patient transfers out now since she is stable. Called [facility] finance dept to f/u on insurance auth, left . 0919: received call from Jade ortiz/ [facility]. She informed me that auth has been provided to [facility]. She asked that we try [facility] again. Original Note: 0809: called [facility] for ins auth, left to have CM review case for transfer and insurance auth. 0747: received call from Kristen ortiz/ [facility] requesting insurance auth.
--- NOTE | 2025-07-06 08:14 | ESPR_ITS ---
<Statement entered by Shon Jaeger MD - 07/06/25 17:27> I have reviewed the note and agree with the resident's assessment & plan with exceptions as below. I have personally reviewed labs, imaging, home meds/prior records, examined the patient, formulated and discussed management plan with my attending. Patient was seen examined bedside's morning. No acute overnight events. Patient's hemoglobin remained stable throughout the whole night and blood pressure was also stable. She did receive 3 A of sodium bicarb given that her bicarb was low on the CMP. Still pending possible transfer, but has not been excepted to any facilities and some have declined due to capacity. Patient's lactic acid is improving, but patient's urine output did decreased throughout the day that is likely ischemic ATN and on repeat renal panel patient's creatinine did go up, will continue to monitor closely for now. Given that there is very low suspicion for SBP at this time therefore discontinue ceftriaxone. Patient did receive additional PRBC today after hemoglobin was found to be 7.2 and on repeat went up to 8.3. Will continue to transfuse as necessary still pending transfer for IR embolization at this time as patient complete and any given time from the liver lesion. Shon Jaeger PGY2 Disclaimer: Even though this this note was dictated by speech recognition and even though it was carefully revised there may still be minor errors in ripsawyer due to voice recognition software. Documentation for date of: 07/06/25 Subjective Subjective Interval history: History of present illness: This patient is a 7-year-old female with a history of atrial fibrilation, liver cirrhosis, invasive ductal breast carcinoma (right) s/p mastectomy, HLD, T2DM, hemorrhoids, and osteoporosis who presented to [facility] ED on 07/05 for acute onset generalized weakness and low blood pressures at home. Patient was admitted to the ICU for hypovolemic shock requiring vasopressor support and massive transfusion. According to the patient's son at bedside, the patient started feeling weak and started to have low blood pressure just last night, but otherwise did not have any acute complaints. The patient did not have any active signs of bleeding, fever, cough, or dark tarry stools. The patient did get the flu shot last week and had a fever the night that she had a vaccine, and did note to have a cough for about 1 month, but otherwise no recent changes or stressors were noted. ED course: Initial vitals significant for blood pressure of 77/43. Initial labs significant for hemoglobin of 9.7, platelets 93, ammonia 96, albumin 2.3, and lactic acid of 4.9. ED physician attempted to obtain urine via straight cath, but unsuccessful due to profound dehydration. Patient received 2 L of NS, but remained hypotensive, prompting initiation of Levophed and an additional 1 L of NS After patient was taken to the ICU, repeat hemoglobin, repeat lactic acid, and overall presentation suggested a rapid deterioration. The decision was made to place a central line into the patient for blood transfusion given decreasing hemoglobin with increasing fluid resuscitation demands. Arterial line was also placed to aid in frequent blood draws. Paracentesis was initially planned earlier in the day, however the patient had a noticeable and rapid decrease in her blood pressure while preparing for the paracentesis after the arterial line placement. Given the patient's worsening status, massive transfusion protocol was activated, which initially stabilized the patient, however the patient would oscillate between high and low blood pressures with systolics ranging from 50s to 250s. Noticeably, the patient was primarily in a hypotensive state which responded very well to IV fluid resuscitation and blood products. During this time, the patient's abdomen was becoming noticeably larger, however it never became firm. ICU team reached out to general surgery and gastroenterology to coordinate next best steps given the patient's critical state. General surgery noted that the patient was not stable enough to withstand surgery, so the ICU team promptly intubated the patient to protect her airways and take the patient down for an emergent CT abdomen pelvis with contrast to identify the source of her volume loss. The patient was found to have significant contrast extravasation from a 5.6 x 5.[address] mass on CT abdomen/pelvis with contrast. Ultrasound of the abdomen identified a significant pocket of fluid, and paracentesis was performed which removed about 50 mL of fluid. The peritoneal fluid was noted to be bloody in appearance and lab analysis of the peritoneal fluid showed extensive amounts of RBCs, further supporting an intra-abdominal bleed as a cause of the patient's critical hypovolemic shock. This decision was made to initiate a transfer for the patient for possible interventional radiology services as in-staff general surgery is not qualified to operate on significant hemorrhages of the liver. The patient is stable with continuous blood transfusions but will require transfer for interventional radiology to cauterize her hemorrhaging liver mass. Interval History: 07/06/2025 No acute events overnight. Patient did receive 3 amps of bicarb overnight for metabolic acidosis with additional units of PRBC transfused. Plasma-Lyte was also ordered by night team and Lasix was trialed given decreasing urine output overnight, without success. Urine output continues to be poor this morning and patient does not appear to be in any acute distress at this time on sedation with mechanical ventilation. Patient's hemoglobin did increase overnight, however he was noted to decrease to 7.2, prompting additional transfusion of PRBC. Lactic acidosis is improving and given overall low suspicion for SBP, discontinued ceftriaxone. Will continue to monitor H&H every 4 hours and transfuse blood as necessary. We are continuing to attempt to transfer the patient to a facility of higher level of care for interventional radiology services to cauterize her hemorrhaging liver mass. Exam Vital Signs Temp Pulse Resp BP Pulse Ox O2 Del Method O2 Flow Rate 99.8 F 83 23 H 124/51 L 97 Room Air 100 07/06/25 04:00 07/06/25 06:25 07/06/25 06:25 07/06/25 06:25 07/06/25 06:25 07/05/25 10:05 07/05/25 14:37 FiO2 50 07/06/25 07:47 Narrative Exam Physical Exam: General: Intubated, on mechanical ventilation. Skin: Cool, dry, intact. Jaundiced. Head: Normocephalic, atraumatic. Spider angioma noted on face. Cardiovascular: Regular rate and rhythm, no murmur, +S1/S2. Respiratory: Lungs are clear to auscultation, respirations unlabored, no crackles, no wheezing. Gastrointestinal: Soft, significantly distended. No guarding or rebound tenderness. Extremities: Diffuse edema in all extremities, no cyanosis, no clubbing. Distal extremeties cool to touch but with 2+ radial and pedal pulses bilaterally. Objective Labs 07/06/25 15:53 07/06/25 12:22 Labs: Laboratory Results - last 24 hr 07/05/25 07/05/25 07/05/25 03:39 06:55 07:35 WBC RBC Hgb Hct MCV MCH MCHC RDW Std Deviation Plt Count Neut % (Auto) Lymph % (Auto) [place] % (Auto) Eos % (Auto) Baso % (Auto) Neut # (Auto) Lymph # (Auto) [place] # (Auto) Eos # (Auto) Baso # (Auto) Immature Gran # (Auto) Absolute Nucleated RBC Immature Gran % Nucleated RBC % Fibrinogen Puncture Site ABG pH ABG pCO2 ABG pO2 ABG HCO3 ABG O2 Saturation ABG Base Excess VBG pH VBG pCO2 VBG pO2 VBG O2 Sat (Va) VBG Base Excess FiO2 Sodium Potassium Chloride Carbon Dioxide Anion Gap BUN Creatinine Estim Creat Clear Calc eGFR BUN/Creatinine Ratio Glucose Calculated Osmolality Lactic Acid Calcium Corrected Calcium Phosphorus Magnesium Total Bilirubin AST ALT Alkaline Phosphatase Lactate Dehydrogenase 198 Total Protein Albumin Globulin Albumin/Globulin Ratio Tumor Marker AFP Ur Collection Type Urine Color Urine Clarity Urine pH Ur Specific Boles Urine Protein Urine Glucose (UA) Urine Ketones Urine Blood Urine Nitrite Urine Bilirubin Urine Urobilinogen (Auto) Ur Leukocyte Esterase Urine RBC Urine WBC Ur Squamous Epith Cells Urine Bacteria Hyaline Casts Granular Casts Ur Culture Indicated? Peritoneal Color Peritoneal Appearance Peritoneal WBC Peritoneal RBC Periton Polynucl WBCs Periton Mononucl WBCs Peritoneal Tot Protein Peritoneal Albumin Peritoneal LDH Peritoneal Glucose Peritoneal Amylase Influenza A (Rapid) Negative Influenza B (Rapid) Negative Blood Type O Positive Antibody Screen NEGATIVE Crossmatch See Detail Blood Bank Wristband ID Yes Blood Bank Comment FFP Ready 07/05/25 07/05/25 07/05/25 11:34 12:15 13:32 WBC RBC Hgb Hct MCV MCH MCHC RDW Std Deviation Plt Count Neut % (Auto) Lymph % (Auto) [place] % (Auto) Eos % (Auto) Baso % (Auto) Neut # (Auto) Lymph # (Auto) [place] # (Auto) Eos # (Auto) Baso # (Auto) Immature Gran # (Auto) Absolute Nucleated RBC Immature Gran % Nucleated RBC % Fibrinogen Puncture Site Right Brachial ABG pH 7.32 L ABG pCO2 25 L ABG pO2 143 H ABG HCO3 13 L ABG O2 Saturation 100 H ABG Base Excess -13 L VBG pH VBG pCO2 VBG pO2 VBG O2 Sat (Va) VBG Base Excess FiO2 21 Sodium Potassium Chloride Carbon Dioxide Anion Gap BUN Creatinine Estim Creat Clear Calc eGFR BUN/Creatinine Ratio Glucose Calculated Osmolality Lactic Acid 10.5 H* Calcium Corrected Calcium Phosphorus Magnesium Total Bilirubin AST ALT Alkaline Phosphatase Lactate Dehydrogenase Total Protein Albumin Globulin Albumin/Globulin Ratio Tumor Marker AFP Ur Collection Type Clean Catch Urine Color Yellow Urine Clarity Clear Urine pH 5.5 Ur Specific Boles 1.028 Urine Protein Negative Urine Glucose (UA) 4+ A Urine Ketones Negative Urine Blood Negative Urine Nitrite Negative Urine Bilirubin Negative Urine Urobilinogen (Auto) Negative Ur Leukocyte Esterase Positive Urine RBC 1 Urine WBC 22 H Ur Squamous Epith Cells 2 Urine Bacteria None Hyaline Casts < 1 Granular Casts 1 Ur Culture Indicated? Yes Peritoneal Color Peritoneal Appearance Peritoneal WBC Peritoneal RBC Periton Polynucl WBCs Periton Mononucl WBCs Peritoneal Tot Protein Peritoneal Albumin Peritoneal LDH Peritoneal Glucose Peritoneal Amylase Influenza A (Rapid) Influenza B (Rapid) Blood Type Antibody Screen Crossaktch Blood Bank [place] [facility] ID Blood Bank Comment 07/05/25 07/05/25 07/05/25 16:00 17:09 17:09 WBC 7.2 RBC 2.18 L Hgb Cancelled 6.3 L* D Hct Cancelled MCV MCH MCHC RDW Std Deviation Plt Count Neut % (Auto) Lymph % (Auto) [place] % (Auto) Eos % (Auto) Baso % (Auto) Neut # (Auto) Lymph # (Auto) [place] # (Auto) Eos # (Auto) Baso # (Auto) Immature Gran # (Auto) Absolute Nucleated RBC Immature Gran % Nucleated RBC % Fibrinogen Puncture Site ABG pH ABG pCO2 ABG pO2 ABG HCO3 ABG O2 Saturation ABG Base Excess VBG pH VBG pCO2 VBG pO2 VBG O2 Sat (Va) VBG Base Excess FiO2 Sodium Potassium Chloride Carbon Dioxide Anion Gap BUN Creatinine Estim Creat Clear Calc eGFR BUN/Creatinine Ratio Glucose Calculated Osmolality Lactic Acid Calcium Corrected Calcium Phosphorus Magnesium Total Bilirubin AST ALT Alkaline Phosphatase Lactate Dehydrogenase Total Protein Albumin Globulin Albumin/Globulin Ratio Tumor Marker AFP Ur Collection Type Urine Color Urine Clarity Urine pH Ur Specific Boles Urine Protein Urine Glucose (UA) Urine Ketones Urine Blood Urine Nitrite Urine Bilirubin Urine Urobilinogen (Auto) Ur Leukocyte Esterase Urine RBC Urine WBC Ur Squamous Epith Cells Urine Bacteria Hyaline Casts Granular Casts Ur Culture Indicated? Peritoneal Color Red Peritoneal Appearance Bloody Peritoneal WBC 2902 Peritoneal RBC [id number] Periton Polynucl WBCs 55.6 Periton Mononucl WBCs 44.4 Peritoneal Tot Protein 4 Peritoneal Albumin 2.6 Peritoneal LDH 195 Peritoneal Glucose 191 Peritoneal Amylase 34 Influenza A (Rapid) Influenza B (Rapid) Blood Type Antibody Screen Crossmatch Blood Bank Wristband ID Blood Bank Comment 11/09/25 11/09/25 11/09/25 17:09 17:35 20:17 WBC RBC Hgb Hct 18.8 L* MCV 86 MCH 28.9 MCHC 33.5 RDW Std Deviation 47.2 H Plt Count 88 L Neut % (Auto) 73 Lymph % (Auto) 16 [place] % (Auto) 9 Eos % (Auto) 2 Baso % (Auto) 0 Neut # (Auto) 5.2 Lymph # (Auto) 1.1 [place] # (Auto) 0.7 Eos # (Auto) 0.1 Baso # (Auto) 0.0 Immature Gran # (Auto) 0.07 H Absolute Nucleated RBC 0.00 Immature Gran % 1 H Nucleated RBC % 0 Fibrinogen 132 L Puncture Site Arterial Line ABG pH 7.25 L ABG pCO2 31 L ABG pO2 170 H D ABG HCO3 13 L ABG O2 Saturation 100 H ABG Base Excess -13 L VBG pH VBG pCO2 VBG pO2 VBG O2 Sat (Va) VBG Base Excess FiO2 60 Sodium 144 Potassium 5.8 H D Chloride 116 H Carbon Dioxide 11.3 L* Anion Gap 17 H BUN 9 Creatinine 0.7 Estim Creat Clear Calc 67.3 eGFR > 60 BUN/Creatinine Ratio 13 Glucose 169 H D Calculated Osmolality 289 Lactic Acid 7.7 H* 6.0 H* Calcium 8.3 Corrected Calcium 9.2 Phosphorus Magnesium Total Bilirubin 1.7 H D AST 78 H ALT 31 Alkaline Phosphatase 44 L D Lactate Dehydrogenase Total Protein 4.0 L Albumin 2.9 L D Globulin 1.1 L Albumin/Globulin Ratio 2.6 H Tumor Marker AFP Ur Collection Type Urine Color Urine Clarity Urine pH Ur Specific Boles Urine Protein Urine Glucose (UA) Urine Ketones Urine Blood Urine Nitrite Urine Bilirubin Urine Urobilinogen (Auto) Ur Leukocyte Esterase Urine RBC Urine WBC Ur Squamous Epith Cells Urine Bacteria Hyaline Casts Granular Casts Ur Culture Indicated? Peritoneal Color Peritoneal Appearance Peritoneal WBC Peritoneal RBC Periton Polynucl WBCs Periton Mononucl WBCs Peritoneal Tot Protein Peritoneal Albumin Peritoneal LDH Peritoneal Glucose Peritoneal Amylase Influenza A (Rapid) Influenza B (Rapid) Blood Type Antibody Screen Crossmatch Blood Bank Wristband ID Blood Bank Comment 07/05/25 07/05/25 07/06/25 20:50 20:52 00:34 WBC RBC Hgb 9.1 L D 9.3 L Hct 26.7 L 26.1 L MCV MCH MCHC RDW Std Deviation Plt Count Neut % (Auto) Lymph % (Auto) [place] % (Auto) Eos % (Auto) Baso % (Auto) Neut # (Auto) Lymph # (Auto) [place] # (Auto) Eos # (Auto) Baso # (Auto) Immature Gran # (Auto) Absolute Nucleated RBC Immature Gran % Nucleated RBC % Fibrinogen Puncture Site Arterial Line ABG pH 7.24 L ABG pCO2 45 D ABG pO2 102 D ABG HCO3 19 L ABG O2 Saturation 99 H ABG Base Excess -8 L VBG pH VBG pCO2 VBG pO2 VBG O2 Sat (Va) VBG Base Excess FiO2 60 Sodium 147 H 149 H Potassium 5.0 D 4.6 Chloride 115 H 116 H Carbon Dioxide 18.9 L 20.9 Anion Gap 13 12 BUN 12 14 Creatinine 0.8 1.0 Estim Creat Clear Calc 58.9 L 47.1 L eGFR > 60 59 L BUN/Creatinine Ratio 15 14 Glucose 239 H D 213 H Calculated Osmolality 300 H 302 H Lactic Acid 6.1 H* 4.9 H* Calcium 9.0 9.1 Corrected Calcium 9.8 9.8 Phosphorus 5.4 H 4.5 Magnesium Total Bilirubin AST ALT Alkaline Phosphatase Lactate Dehydrogenase Total Protein Albumin 3.0 L 3.1 L Globulin Albumin/Globulin Ratio Tumor Marker AFP 12.60 H Ur Collection Type Urine Color Urine Clarity Urine pH Ur Specific Boles Urine Protein Urine Glucose (UA) Urine Ketones Urine Blood Urine Nitrite Urine Bilirubin Urine Urobilinogen (Auto) Ur Leukocyte Esterase Urine RBC Urine WBC Ur Squamous Epith Cells Urine Bacteria Hyaline Casts Granular Casts Ur Culture Indicated? Peritoneal Color Peritoneal Appearance Peritoneal WBC Peritoneal RBC Periton Polynucl WBCs Periton Mononucl WBCs Peritoneal Tot Protein Peritoneal Albumin Peritoneal LDH Peritoneal Glucose Peritoneal Amylase Influenza A (Rapid) Influenza B (Rapid) Blood Type Antibody Screen Crossmatch Blood Bank Wristband ID Blood Bank Comment 07/06/25 07/06/25 07/06/25 01:58 04:23 07:10 WBC 8.1 RBC 3.01 L Hgb 8.7 L Hct 25.2 L MCV 84 MCH 28.9 MCHC 34.5 RDW Std Deviation 48.0 H Plt Count 129 L D Neut % (Auto) 72 Lymph % (Auto) 14 [place] % (Auto) 9 Eos % (Auto) 4 Baso % (Auto) 1 Neut # (Auto) 5.8 Lymph # (Auto) 1.1 [place] # (Auto) 0.8 Eos # (Auto) 0.3 Baso # (Auto) 0.0 Immature Gran # (Auto) 0.04 H Absolute Nucleated RBC 0.02 H Immature Gran % 1 H Nucleated RBC % 0 Fibrinogen 218 Puncture Site Arterial Line ABG pH 7.33 L ABG pCO2 40 ABG pO2 85 ABG HCO3 21 ABG O2 Saturation 98 ABG Base Excess -4 L VBG pH 7.33 VBG pCO2 41 VBG pO2 66 H VBG O2 Sat (Va) 95 L VBG Base Excess -4 L FiO2 40 Sodium 149 H Potassium 4.4 Chloride 114 H Carbon Dioxide 22.6 Anion Gap 12 BUN 16 Creatinine 1.2 Estim Creat Clear Calc 39.3 L eGFR 48 L BUN/Creatinine Ratio 13 Glucose 184 H Calculated Osmolality 302 H Lactic Acid 4.5 H* Calcium 9.4 Corrected Calcium 10.0 Phosphorus 4.5 Magnesium 1.6 Total Bilirubin 3.7 H D AST 279 H ALT 122 H Alkaline Phosphatase 53 D Lactate Dehydrogenase Total Protein 4.6 L Albumin 3.3 L Globulin 1.3 L Albumin/Globulin Ratio 2.5 H Tumor Marker AFP Ur Collection Type Urine Color Urine Clarity Urine pH Ur Specific Boles Urine Protein Urine Glucose (UA) Urine Ketones Urine Blood Urine Nitrite Urine Bilirubin Urine Urobilinogen (Auto) Ur Leukocyte Esterase Urine RBC Urine WBC Ur Squamous Epith Cells Urine Bacteria Hyaline Casts Granular Casts Ur Culture Indicated? Peritoneal Color Peritoneal Appearance Peritoneal WBC Peritoneal RBC Periton Polynucl WBCs Periton Mononucl WBCs Peritoneal Tot Protein Peritoneal Albumin Peritoneal LDH Peritoneal Glucose Peritoneal Amylase Influenza A (Rapid) Influenza B (Rapid) Blood Type Antibody Screen Crossmatch Blood Bank Wristband ID Blood Bank Comment ABG Interpretation ABG results: 07/05/25 07/05/25 07/05/25 13:32 17:35 20:50 ABG pH 7.32 L 7.25 L 7.24 L ABG pCO2 25 L 31 L 45 D ABG pO2 143 H 170 H D 102 D ABG HCO3 13 L 13 L 19 L ABG O2 Saturation 100 H 100 H 99 H ABG Base Excess -13 L -13 L -8 L VBG pH VBG pCO2 VBG pO2 VBG Base Excess 07/06/25 07/06/25 01:58 07:10 ABG pH 7.33 L ABG pCO2 40 ABG pO2 85 ABG HCO3 21 ABG O2 Saturation 98 ABG Base Excess -4 L VBG pH 7.33 VBG pCO2 41 VBG pO2 66 H VBG Base Excess -4 L Quality Measures Quality Measures sepsis Current suspected stage: ruled out Possible source: unknown Blood cultures ordered: yes Antibiotic ordered: No Advance care planning discussed with:: child Assessment & Plan Assessment Current Active Medications: Generic Name Dose Route Start Last Admin Trade Name Rafaelq PRN Reason Stop Dose Admin Acetaminophen 650 mg 07/05/25 07:46 Acetaminophen 325 Mg Tablet PO 08/04/25 07:45 Q6H PRN Fever >100.5 or pain 1-3 Dextrose 25 ml 07/05/25 07:51 Dextrose 50%-Water Inj 50 Ml Syringe IV 08/04/25 07:50 Q15MIN PRN BG 50-70 responsive npo pt Dextrose 50 ml 07/05/25 07:51 Dextrose 50%-Water Inj 50 Ml Syringe IV 08/04/25 07:50 Q15MIN PRN BG <50 OR BG <70 & pt unresponsive Dextrose/Electrolytes 1,000 ml 07/05/25 23:42 Electrolyte-56/D5w 1,000 Ml Bag IV 08/04/25 23:44 PER ORDER PRN UO Net negative more than 1 L Glucagon 1 mg 07/05/25 07:51 Glucagon Inj 1 Mg Vial IM Q15MIN PRN BG <70, and no IV access Norepinephrine/Dextrose 8 mg in 250 mls @ 6.804 mls/hr 07/05/25 04:16 07/06/25 06:45 Levophed In D5w 8mg/250ml IV 08/04/25 04:15 0.03 mcg/kg/min .Q24H PRN 4.082 mls/hr PER PROTOCOL Titration Protocol 0.05 MCG/KG/MIN Albumin Human 25 gm in 100 mls @ 100 mls/hr 07/05/25 11:00 07/05/25 11:43 Albuminex 25% Ivpb IV 07/08/25 10:59 100 mls/hr QDAY@1100 PABLO Administration Albumin Human 25 gm in 100 mls @ 100 mls/hr 07/05/25 10:00 07/05/25 11:09 Albuminex 25% Ivpb IV 07/08/25 09:59 100 mls/hr QDAY@1000 PABLO Administration Albumin Human 25 gm in 100 mls @ 100 mls/hr 07/05/25 09:00 07/05/25 09:26 Albuminex 25% Ivpb IV 07/08/25 08:59 100 mls/hr QDAY PABLO Administration Ceftriaxone Sodium/Dextrose 1 gm in 50 mls @ 100 mls/hr 07/05/25 07:59 07/05/25 09:25 Rocephin/D5w 1gm Iv Premix IV 07/12/25 07:58 100 mls/hr QDAY PABLO Administration Octreotide Acetate 1,000 mcg/ 102 mls @ 5.1 mls/hr 07/06/25 04:44 07/06/25 03:05 Sodium Chloride IV 07/10/25 04:43 50 mcg/hr .Q20H PABLO 5.1 mls/hr Protocol Administration 50 MCG/HR Fentanyl Citrate 2,500 mcg in 250 mls @ 2.5 mls/hr 07/05/25 13:59 07/06/25 06:00 Sublimaze Inj 2,500 Mcg/250 Ml Bag IV 07/10/25 13:58 300 mcg/hr .Q24H PRN 30 mls/hr PER PROTOCOL Titration Protocol 25 MCG/HR Propofol 1,000 mg in 100 mls @ 2.177 mls/hr 07/05/25 13:59 07/06/25 06:00 Diprivan Ivpb IV 08/04/25 13:58 15 mcg/kg/min .Q24H PRN 6.532 mls/hr PER PROTOCOL Titration Protocol 5 MCG/KG/MIN Vasopressin/Sodium Chloride 20 unit in 100 mls @ 9 mls/hr 07/05/25 16:45 07/06/25 04:02 Vasostrict/Ns Ivpb IV 08/04/25 16:44 0.03 unit/min .Q11H7M PRN 9 mls/hr PER PROTOCOL Administration Protocol 0.03 UNIT/MIN Insulin Human Lispro 0 unit 07/06/25 12:00 Insulin Lispro (Admelog) 1 Unit/0.01 Ml Unit SC 08/05/25 11:59 Q6H PABLO Protocol Lactulose 10 gm 07/05/25 14:00 07/06/25 04:56 Lactulose Syrup 20 Gm/30 Ml Udc PO 08/04/25 13:59 Not Given TID [facility] Protocol Morphine Sulfate 2 mg 07/05/25 13:09 Morphine Sulf Inj 4 Mg/Ml Vial IVP Q2H PRN PAIN SCALE 4-10(Mod-Sev Ondansetron HCl 4 mg 07/05/25 07:46 Ondansetron Inj 2 Mg/Ml Inj 2 Ml IVP 08/04/25 07:45 Q6H PRN NAUSEA OR VOMITING Protocol Pantoprazole Sodium 40 mg 07/05/25 21:00 07/05/25 20:42 Pantoprazole Inj 40 Mg Vial IVP 08/04/25 20:59 40 mg BID PABLO Administration Rifaximin 550 mg 07/05/25 21:00 07/05/25 20:42 Rifaximin 550 Mg Tablet PO 07/12/25 20:59 Not Given BID PABLO Plan This patient is a 7-year-old female with a history of liver cirrhosis, invasive ductal breast carcinoma (right) s/p mastectomy, HLD, T2DM, hemorrhoids, and osteoporosis who presented to [facility] ED on 07/05 for acute onset generalized weakness and low blood pressures at home. Patient was admitted to the ICU for shock requiring vasopressor support. NEURO #Acute encephalopathy DDx: Cerebral hypoperfusion, hepatic encephalopathy Dx: Ammonia 96 on admission Patient remains altered on sedation holiday 07/06 Rx: Manage underlying shock CARDIO #Hypovolemic shock #Hemorrhagic shock Dx: Patient noted to have initial blood pressure of 77/43 in ED Hemoglobin in ED noted to be 9.7, subsequent hemoglobin in ICU: 3.8 => 6.3 ===> 8.3 Rx: Patient received 3 L of NS in ED Levophed and vasopressin Massive transfusion protocol initiated, patient has received 4 units of PRBC, 2 units of FFP, 1 unit of platelets, and 4 units of cryoprecipitate Tranexamic acid 1 g given 07/05 Calcium to be given with blood transfusion to prevent hypocalcemia Will continue to transfuse blood products () until patient can be transferred for interventional radiology services to cauterize source of bleeding Repeat H&H every 4 hours, transfuse if hemoglobin less than 7 or downtrending towards less than 7 RRx: Patient has decreased PRBC transfusion requirments for stabilization since day of admission PULM #Intubated with mechanical ventilation Rx: Intubated 07/05 Vent on AC/VC GI #Intra-abdominal hemorrhage #Right lower lobe liver lesion, with extravasation of contrast #Hemoperitoneum DDx: Bleeding hemangioma, multifocal primary hepatocellular carcinoma, metastasis from breast vs undetermined malignancy Dx: CTA abdomen/pelvis 07/05 shows extravasation of contrast into the abdomen from a 5.6 x 5.5 cm liver lesion in the right lower lobe of the liver Paracentesis 07/05 bloody appearance with extensive RBC on cytology Peritoneal fluid culture obtained 07/05, pending Peritoneal fluid cytology obtained 07/05, pending Rx: General surgery consulted, appreciate recommendations GI consulted, appreciate recommendations Plan to transfer patient to facility of higher level care for interventional radiology to cauterize liver lesion to stop hemorrhage Continue massive transfusion protocol as noted above if needed If mechanical ventilation plateau pressure above 30, consider repeat paracentesis to decrease intra-abdominal pressure #Liver cirrhosis #Hypoalbuminemia #Transaminitis Patient is noted to have a history of liver cirrhosis, likely secondary to fatty liver. Patient does see a GI specialist in [place]. Worsening of her liver cirrhosis possibly contributed to patient's acute decline and intra-abdominal hemorrhage Dx: Liver cirrhosis as noted in CTA abdomen/pelvis 07/05/[address] chest/abdomen/pelvis 03/17/2025 AST 37 and ALT 24 on admission => AST 279 and ALT 122 on 07/06 INR on admission 1.9 Albumin 2.3 on admission Viral hepatitis panel negative MELD score 14 points on admission, 6% estimated 3-month mortality rate Maddrey score 33.3 points on admission, poor prognosis Paracentesis 07/05 bloody appearance with extensive RBC on cytology Ascites fluid culture collected 07/05, pending Rx: GI consulted, appreciate recommendations Patient to follow up with her outpatient GI specialist in [place] Protonix 40 mg IV twice daily Albumin 75 gm IV daily Rifaximin 550 mg twice daily Octreotide gtt in case of possible varices RRx: Ceftriaxone initially started 07/05 discontinued given low suspicion for SBP NEPHRO #HAGMA, resolved #Lactic acidosis, improving Dx: Patient noted to have bicarb of 11.3 at 07/05 in the evening Lactic acid elevated at 4.9 on admission, increased to peak of 12.5 on 07/05 in the afternoon, and has since downtrended Rx: Continue to manage underlying hypovolemic shock with adequate blood transfusion and fluid resuscitation #Hypernatremic, hyperchloremic, metabolic acidosis Dx: Patient noted to have sodium of 1.7 and chloride of 115 with a bicarb of 18.9 on 07/05 at around 2100 Rx: Plasma-Lyte ordered for fluid resuscitation as needed #Hyperammonemia Likely secondary to patient's liver cirrhosis. Patient does take lactulose 30 mL every other day, however patient's liver cirrhosis likely worsened to where this lactulose regimen is unable to control her ammonia levels Rx: Lactulose 10 gm three times daily #Acute kidney injury DDx: Prerenal azotemia, acute tubular necrosis Dx: Creatinine increased to 1.5 from baseline of 0.7 on 07/06 Patient has decreasing urine output since admission Rx: Lasix 40 mg IVP one time dose given 07/05 near midnight Continue managing underlying hemorrhage RRx: Lasix trial unsuccessful at increasing urine output URO #No active problems HEME #Acute blood loss anemia - Plan as noted above ENDO #Hyperglycemia - Sliding scale insulin - Bedside glucose checks every 6 hours ID #No active problems MSK #No active problems SKIN #No active problems DVT prophylaxis: SCDs GI prophylaxis: Protonix Diet: NPO Núñez: N/A Lines: Peripheral IV, LIJ central line, arterial line, right femoral large bore transfusion line Antibiotics: N/A CODE STATUS: FULL Vent Status: AC/VC Reason for ICU care: Hypovolemic shock requiring vasopressors, pending transfer for IR Patient plan of care was discussed with the attending quality control tech raw materials, Dr. Martin and senior resident Dr. Hoang (PGY-2). Shaun De La Rosa, PGY-1 Attending Provider Attestation/Addendum Patient seen on date of service. See same date discharge summary for detail plan of care and interventions throughout the day. Patient pending transfer to [place] at this time based on bed availability.
[2025-07-06] MEDS: ALBUMIN HUMAN-KJDA 25% IVPB 25 GM/100 ML BTL IV ×3 (08:33→11:01)
[2025-07-06] MEDS: cefTRIAXone/D5w 1gm IV premix 1 GM/50 ML BAG IV (08:33)
[2025-07-06 08:59] LABS: Hematocrit 23.9 % (36.0-46.0)
[2025-07-06 09:03] LABS: Hemoglobin 8.4 g/dL (12.0-16.0)
[2025-07-06 10:21] LABS: Reflex Lactate? Y
[2025-07-06 10:41] LABS: Lactate (Lactic Acid) 4.4 mMol/L (0.4-2.0)
[2025-07-06 12:29] LABS: Lactate (Lactic Acid) 3.9 mMol/L (0.4-2.0)
[2025-07-06 12:32] LABS: Hematocrit 20.9 % (36.0-46.0); Hemoglobin 7.2 g/dL (12.0-16.0)
[2025-07-06 13:20] LABS: Reflex Lactate? Y
--- NOTE | 2025-07-06 13:23 | PC.DIETICIAN ---
Nutrition prescription If EN is indicated, consider: Trophic feeds of Vital 1.2 at 20 ml/hr via OG tube by pump. If no IV fluids, water flushes of 25 ml/hr (or per MD). Once more stable, advance 10 ml every 8 hrs to goal rate of 55 ml/hr x 24 hrs.
--- NOTE | 2025-07-06 13:28 | ESOP_ITS ---
PROCEDURES: Procedure Date / Time 07/06/25 1200 Procedure Narrative Procedure Narrative: Attending Attestation: I was present for entire procedure. Patient tolerated procedure well without significant blood loss. No immediate complications. Continue to monitor patient closely while pending transfer. Arterial Line Indication(s): frequent arterial line sampling and shock Informed consent obtained: obtained from surrogate decision maker Time out done, and the following verified: correct patient, side and site, procedure, patient position and implants and/or equipment Size (Gauge): 20 Technique used: guide wire technique Post-Procedure: line sutured into place and dry sterile dressing placed Patient tolerated procedure: well and no complications EBL(ml): 10 Complications: none Site: left and femoral Procedure comment: Right femoral A-line Prior to femoral insertion, attempted to re-insert line in left radial artery but was unsuccessful due to arterial vasospasms and arterial collapse. A time out was performed. My hands were washed immediately prior to the procedure. I wore a surgical cap, mask, sterile gown and sterile gloves throughout the procedure.The left wrist was prepped using chlorhexidine scrub and draped in sterile fashion. The radial pulse was identified and the wrist was positioned in the usual fashion. Using the Arrow Radial Arterial Line Kit, a needle was inserted into the left femoral artery. Arterial blood was seen to pulsate in the flash chamber. The internal guidewire was advanced easily into the left femoral artery. The catheter was then advanced over the wire and the needle and wire were withdrawn. The catheter was sutured in place. A sterile opsite was placed over the catheter at the insertion site. The patient tolerated the procedure without any hemodynamic compromise. At the time of procedure completion, the catheter was connected to the monitor technician and calibrated. Appropriate waveform and blood pressure tracing was observed. Case discussed and supervised by attending Dr. Veronica Bradshaw DO, PGY-1
[2025-07-06] MEDS: LACTULOSE SYRUP 20 GM/30 ML UDC 10 GM PO ×2 (13:51→21:17)
--- NOTE | 2025-07-06 13:56 | PD.IMPROG ---
Documentation for date of: 07/06/25 Subjective Subjective Interval history: Mechanically ventilated endotracheal intubation Hemoglobin hematocrit 7.3 and 29 Platelet count 1 29,000 ICU team working on a transfer to a tertiary center Exam Vital Signs Temp Pulse Resp BP Pulse Ox O2 Del Method O2 Flow Rate 99.5 F 85 23 H 118/43 L 50 L Mechanical Ventilation 100 07/06/25 13:36 07/06/25 13:36 07/06/25 13:36 07/06/25 13:36 07/06/25 13:36 07/06/25 08:10 07/05/25 14:37 FiO2 50 07/06/25 11:50 Objective Labs 07/06/25 12:22 07/06/25 04:23 Labs: Laboratory Results - last 24 hr 07/05/25 07/05/25 07/05/25 06:55 16:00 17:09 WBC 7.2 RBC 2.18 L Hgb Cancelled Hct MCV MCH MCHC RDW Std Deviation Plt Count Neut % (Auto) Lymph % (Auto) [place] % (Auto) Eos % (Auto) Baso % (Auto) Neut # (Auto) Lymph # (Auto) [place] # (Auto) Eos # (Auto) Baso # (Auto) Immature Gran # (Auto) Absolute Nucleated RBC Immature Gran % Nucleated RBC % Fibrinogen Puncture Site ABG pH ABG pCO2 ABG pO2 ABG HCO3 ABG O2 Saturation ABG Base Excess VBG pH VBG pCO2 VBG pO2 VBG O2 Sat (Va) VBG Base Excess FiO2 Sodium Potassium Chloride Carbon Dioxide Anion Gap BUN Creatinine Estim Creat Clear Calc eGFR BUN/Creatinine Ratio Glucose Calculated Osmolality Lactic Acid Calcium Corrected Calcium Phosphorus Magnesium Total Bilirubin AST ALT Alkaline Phosphatase Total Protein Albumin Globulin Albumin/Globulin Ratio Tumor Marker AFP Peritoneal Color Red Peritoneal Appearance Bloody Peritoneal WBC 2902 Peritoneal RBC 1210521 Periton Polynucl WBCs 55.6 Periton Mononucl WBCs 44.4 Peritoneal Tot Protein 4 Peritoneal Albumin 2.6 Peritoneal LDH 195 Peritoneal Glucose 191 Peritoneal Amylase 34 Blood Type O Positive Antibody Screen NEGATIVE Crossmatch See Detail Blood Bank Wristband ID Yes Blood Bank Comment FFP Ready 07/05/25 07/05/25 07/05/25 17:09 17:09 17:35 WBC RBC Hgb 6.3 L* D Hct Cancelled 18.8 L* MCV 86 MCH 28.9 MCHC 33.5 RDW Std Deviation 47.2 H Plt Count 88 L Neut % (Auto) 73 Lymph % (Auto) 16 [place] % (Auto) 9 Eos % (Auto) 2 Baso % (Auto) 0 Neut # (Auto) 5.2 Lymph # (Auto) 1.1 [place] # (Auto) 0.7 Eos # (Auto) 0.1 Baso # (Auto) 0.0 Immature Gran # (Auto) 0.07 H Absolute Nucleated RBC 0.00 Immature Gran % 1 H Nucleated RBC % 0 Fibrinogen 132 L Puncture Site Arterial Line ABG pH 7.25 L ABG pCO2 31 L ABG pO2 170 H D ABG HCO3 13 L ABG O2 Saturation 100 H ABG Base Excess -13 L VBG pH VBG pCO2 VBG pO2 VBG O2 Sat (Va) VBG Base Excess FiO2 60 Sodium 144 Potassium 5.8 H D Chloride 116 H Carbon Dioxide 11.3 L* Anion Gap 17 H BUN 9 Creatinine 0.7 Estim Creat Clear Calc 67.3 eGFR > 60 BUN/Creatinine Ratio 13 Glucose 169 H D Calculated Osmolality 289 Lactic Acid 7.7 H* Calcium 8.3 Corrected Calcium 9.2 Phosphorus Magnesium Total Bilirubin 1.7 H D AST 78 H ALT 31 Alkaline Phosphatase 44 L D Total Protein 4.0 L Albumin 2.9 L D Globulin 1.1 L Albumin/Globulin Ratio 2.6 H Tumor Marker AFP Peritoneal Color Peritoneal Appearance Peritoneal WBC Peritoneal RBC Periton Polynucl WBCs Periton Mononucl WBCs Peritoneal Tot Protein Peritoneal Albumin Peritoneal LDH Peritoneal Glucose Peritoneal Amylase Blood Type Antibody Screen Crossmatch Blood Bank Wristband ID Blood Bank Comment 07/05/25 07/05/25 07/05/25 20:17 20:50 20:52 WBC RBC Hgb 9.1 L D Hct 26.7 L MCV MCH MCHC RDW Std Deviation Plt Count Neut % (Auto) Lymph % (Auto) [place] % (Auto) Eos % (Auto) Baso % (Auto) Neut # (Auto) Lymph # (Auto) [place] # (Auto) Eos # (Auto) Baso # (Auto) Immature Gran # (Auto) Absolute Nucleated RBC Immature Gran % Nucleated RBC % Fibrinogen Puncture Site Arterial Line ABG pH 7.24 L ABG pCO2 45 D ABG pO2 102 D ABG HCO3 19 L ABG O2 Saturation 99 H ABG Base Excess -8 L VBG pH VBG pCO2 VBG pO2 VBG O2 Sat (Va) VBG Base Excess FiO2 60 Sodium 147 H Potassium 5.0 D Chloride 115 H Carbon Dioxide 18.9 L Anion Gap 13 BUN 12 Creatinine 0.8 Estim Creat Clear Calc 58.9 L eGFR > 60 BUN/Creatinine Ratio 15 Glucose 239 H D Calculated Osmolality 300 H Lactic Acid 6.0 H* 6.1 H* Calcium 9.0 Corrected Calcium 9.8 Phosphorus 5.4 H Magnesium Total Bilirubin AST ALT Alkaline Phosphatase Total Protein Albumin 3.0 L Globulin Albumin/Globulin Ratio Tumor Marker AFP 12.60 H Peritoneal Color Peritoneal Appearance Peritoneal WBC Peritoneal RBC Periton Polynucl WBCs Periton Mononucl WBCs Peritoneal Tot Protein Peritoneal Albumin Peritoneal LDH Peritoneal Glucose Peritoneal Amylase Blood Type Antibody Screen Crossmatch Blood Bank Wristband ID Blood Bank Comment 07/06/25 07/06/25 07/06/25 00:34 01:58 04:23 WBC 8.1 RBC 3.01 L Hgb 9.3 L 8.7 L Hct 26.1 L 25.2 L MCV 84 MCH 28.9 MCHC 34.5 RDW Std Deviation 48.0 H Plt Count 129 L D Neut % (Auto) 72 Lymph % (Auto) 14 [place] % (Auto) 9 Eos % (Auto) 4 Baso % (Auto) 1 Neut # (Auto) 5.8 Lymph # (Auto) 1.1 [place] # (Auto) 0.8 Eos # (Auto) 0.3 Baso # (Auto) 0.0 Immature Gran # (Auto) 0.04 H Absolute Nucleated RBC 0.02 H Immature Gran % 1 H Nucleated RBC % 0 Fibrinogen 218 Puncture Site Arterial Line ABG pH 7.33 L ABG pCO2 40 ABG pO2 85 ABG HCO3 21 ABG O2 Saturation 98 ABG Base Excess -4 L VBG pH VBG pCO2 VBG pO2 VBG O2 Sat (Va) VBG Base Excess FiO2 40 Sodium 149 H 149 H Potassium 4.6 4.4 Chloride 116 H 114 H Carbon Dioxide 20.9 22.6 Anion Gap 12 12 BUN 14 16 Creatinine 1.0 1.2 Estim Creat Clear Calc 47.1 L 39.3 L eGFR 59 L 48 L BUN/Creatinine Ratio 14 13 Glucose 213 H 184 H Calculated Osmolality 302 H 302 H Lactic Acid 4.9 H* Calcium 9.1 9.4 Corrected Calcium 9.8 10.0 Phosphorus 4.5 4.5 Magnesium 1.6 Total Bilirubin 3.7 H D AST 279 H ALT 122 H Alkaline Phosphatase 53 D Total Protein 4.6 L Albumin 3.1 L 3.3 L Globulin 1.3 L Albumin/Globulin Ratio 2.5 H Tumor Marker AFP Peritoneal Color Peritoneal Appearance Peritoneal WBC Peritoneal RBC Periton Polynucl WBCs Periton Mononucl WBCs Peritoneal Tot Protein Peritoneal Albumin Peritoneal LDH Peritoneal Glucose Peritoneal Amylase Blood Type Antibody Screen Crossidtch Blood Bank [facility] Blood Bank Comment 07/06/25 07/06/25 07/06/25 07:10 10:02 12:22 WBC RBC Hgb 8.4 L 7.2 L Hct 23.9 L 20.9 L* MCV MCH MCHC RDW Std Deviation Plt Count Neut % (Auto) Lymph % (Auto) [place] % (Auto) Eos % (Auto) Baso % (Auto) Neut # (Auto) Lymph # (Auto) [place] # (Auto) Eos # (Auto) Baso # (Auto) Immature Gran # (Auto) Absolute Nucleated RBC Immature Gran % Nucleated RBC % Fibrinogen Puncture Site ABG pH ABG pCO2 ABG pO2 ABG HCO3 ABG O2 Saturation ABG Base Excess VBG pH 7.33 VBG pCO2 41 VBG pO2 66 H VBG O2 Sat (Va) 95 L VBG Base Excess -4 L FiO2 Sodium Potassium Chloride Carbon Dioxide Anion Gap BUN Creatinine Estim Creat Clear Calc eGFR BUN/Creatinine Ratio Glucose Calculated Osmolality Lactic Acid 4.5 H* 4.4 H* 3.9 H Calcium Corrected Calcium Phosphorus Magnesium Total Bilirubin AST ALT Alkaline Phosphatase Total Protein Albumin Globulin Albumin/Globulin Ratio Tumor Marker AFP Peritoneal Color Peritoneal Appearance Peritoneal WBC Peritoneal RBC Periton Polynucl WBCs Periton Mononucl WBCs Peritoneal Tot Protein Peritoneal Albumin Peritoneal LDH Peritoneal Glucose Peritoneal Amylase Blood Type Antibody Screen Crossmatch Blood Bank [facility] Blood Bank Comment Impressions Impression: Bleeding into the liver mass with drop in hemoglobin hematocrit Continue aggressive supportive care does not transfer ABG Interpretation ABG results: 07/05/25 07/05/25 07/05/25 13:32 17:35 20:50 ABG pH 7.32 L 7.25 L 7.24 L ABG pCO2 25 L 31 L 45 D ABG pO2 143 H 170 H D 102 D ABG HCO3 13 L 13 L 19 L ABG O2 Saturation 100 H 100 H 99 H ABG Base Excess -13 L -13 L -8 L VBG pH VBG pCO2 VBG pO2 VBG Base Excess 07/06/25 07/06/25 01:58 07:10 ABG pH 7.33 L ABG pCO2 40 ABG pO2 85 ABG HCO3 21 ABG O2 Saturation 98 ABG Base Excess -4 L VBG pH 7.33 VBG pCO2 41 VBG pO2 66 H VBG Base Excess -4 L Assessment & Plan A&P Narrative # Bleeding right hepatic lobe either a bleeding hemangioma or multifocal primary hepatocellular carcinoma or metastatic disease # Metabolic and lactic acidosis # Mechanically ventilated Plan Case discussed with the internal medicine team Transfer the patient to a higher level of care for embolization of the bleeding liver lesion And may be later on biopsy of the 20 mm lesion to see if it is a carcinoma Recommend AFP Monitor labs Will follow the patient Thank you for the opportunity to evaluate this challenging patient Time Spent With Patient Time: Total time spent is greater than 50% in coordination of care (as documented) at patient's floor/unit and/or counseling patient: PROCEDURES: Arterial Line Size (Gauge): 20
[2025-07-06 14:34] LABS: Albumin, Serum 3.7 gm/dL (3.4-4.8); Anion Gap 13 (7-16); BUN/Creatinine Ratio 16 Ratio (12-20); Blood Urea Nitrogen 24 mg/dL (9-23); Calcium 9.1 mg/dL (8.3-10.6); Calcium (Corrected) 9.3 mg/dL (8.5-10.1); Carbon Dioxide 21.2 mMol/L (20.0-31.0); Chloride 114 mMol/L (98-107); Creatinine (Component) 1.5 mg/dL (0.6-1.3); Estimated Creatinine Clearance 33.8 mL/min (>60); Glucose 171 mg/dL (74-106); Osmolality,Calculated 302 (275-295); Phosphorous 4.4 mg/dL (2.4-5.1); Potassium 4.6 mMol/L (3.4-5.1); Sodium 148 mMol/L (136-145); eGFR 36 See Note
[2025-07-06 15:27] LABS: Reflex Lactate? Y
[2025-07-06 16:03] LABS: Lactate (Lactic Acid) 3.5 mMol/L (0.4-2.0)
[2025-07-06 16:10] LABS: Hematocrit 24.7 % (36.0-46.0)
[2025-07-06 16:26] LABS: Hemoglobin 8.3 g/dL (12.0-16.0)
[2025-07-06] MEDS: PROPOFOL 1,000 MG IVPB 1,000 MG/100 ML VIAL 2.177 MG IV (17:00)
[2025-07-06] MEDS: Norepinephrine/D5W 8mg/250ml 8 MG/250 ML BAG 4.082 MG IV (17:02)
--- NOTE | 2025-07-06 18:10 | PD.RESDS ---
Planned Discharge Date 07/06/25 DS: Providers Provider Date of admission: 07/05/25 07:46 Primary care physician: Amairani Barros MD Admitting Provider: Tom Martin MD Attending Provider on Admission: Tom Martin MD Consults: 07/05/25 16:04 Consult to Gastroenterology Routine Comment: Consulting Provider: Kay Obrien Consult to General Surgery Routine Comment: Consulting Provider: Lulu Jasso Referral - Loop Tender Stat Service Needed for Transfer: Interventional Radiology Addl Comments:: Need embolization for active bleeding liver lesion Attending Provider on DC: Tom Martin MD Discharging Provider: Tom Martin MD Anticipated date of discharge: 07/06/25 DS: Diagnosis Problem List Completed Was Problem List Reviewed/Reconciled?: Yes Hospital Course Hospital Course Hospital course: Reason for hospitalization: Hypovolemic shock requiring pressors Summary: The patient is a 74-year-old female with a history of atrial fibrillation, liver cirrhosis, invasive ductal breast carcinoma (right) s/p mastectomy, HLD, T2DM, hemorrhoids, and osteoporosis who presented to [facility] ED on 07/04 for acute onset weakness with soft blood pressures. Patient was admitted to the ICU for management of shock requiring pressors. In the ED, the patient initially had a blood pressure of 77/43, afebrile, and alert and oriented x 3. Hemoglobin in the ED was noted to be 9.7 with lactic acidosis, so the patient was given 2 L of NS, but continued to have low pressures, prompting initiation of Levophed. Repeat hemoglobin noted to be 3.8, which was repeated once more given suspicion for dilution, however repeat hemoglobin was noted to be even lower. When the patient was brought up to the ICU, Dario hugger was initiated for low body temperature, central line was placed in the left IJ and blood products were started given suspicion for acute bleed, however it was noted that the patient had no incidence of bloody vomitus nor bloody stools. Arterial line was inserted for closer blood pressure monitoring and blood draws. FOBT was positive, however given the patient's history of hemorrhoids, another source of bleeding was suspected, especially as the patient's blood pressure started to drop significantly with a large pulse pressure and increasing size of her abdomen compared to in the ED. Ultrasound of the abdomen did show fluid in the abdomen that was sufficient for paracentesis. However, prior to paracentesis, given the patient's instability, it was determined that the patient required urgent intubation for stabilization and CTA abdomen/pelvis to determine source of suspected abdominal bleed. CTA of the abdomen/pelvis was significant for a 5.6 x 5.5 cm enhancing right lower lobe liver lesion with extravasation of contrast into the abdomen. Paracentesis of the abdomen was performed, which resulted in serosanguineous fluid being obtained. The case was discussed with both general surgery and GI. Given the source of the hemorrhage being located at the liver, in-house general surgery recommended urgent transfer to facility of higher care given lack of experience and tools available to manage hemorrhage from the liver. Initiated transfer to facility of higher level care for massive intra-abdominal hemorrhage from the patient's liver lesion. Patient remains sedated and tranexamic acid was given. The patient remained stable on 07/06 awaiting transfer to facility of higher level care, but continues to require infusion of PRBC given improving, but unstable hemoglobin. As of time of this discharge summary, massive transfusion protocol has been initiated and the patient has received 7 units of PRBC with an additional 2 units of PRBC, 2 units of FFP, 3 units of platelets (limited stock of platelets at [facility]), and 5 units of cryoprecipitate being transfused. The patient is currently stable for urgent transfer to facility of higher level care so that she may receive embolization of her liver lesion by interventional radiology. Hospital Diagnoses: #Intra-abdominal hemorrhage, requiring massive transfusion #Right lower lobe liver lesion, 5.6 x 5.5 cm, with extravasation of contrast on CTA abdomen/pelvis #Hypovolemic shock #Hemorrhagic shock #Acute blood loss anemia #Hemoperitoneum #Lactic acidosis, improving #Atrial fibrillation #Liver cirrhosis #Transaminitis #HAGMA, resolved #Acute kidney injury #History of invasive ductal breast carcinoma, right, status post mastectomy #HLD #T2DM #History of hemorrhoids #Osteoporosis Patient plan of care was discussed with attending physician Dr. Veronica De La Rosa, PGY-1 Time Spent with Patient Time attestation: Total time spent providing and/or coordinating discharge services: Time spent: Greater than 30 minutes Exam Vital Signs Temp Pulse Resp BP Pulse Ox O2 Del Method O2 Flow Rate 99.2 F 86 21 H 124/44 L 98 Mechanical Ventilation 100 07/06/25 16:20 07/06/25 17:30 07/06/25 17:30 07/06/25 17:30 07/06/25 17:30 07/06/25 17:00 07/05/25 14:37 FiO2 50 07/06/25 17:00 Narrative Exam General: Intubated, on mechanical ventilation. Skin: Cool, dry, intact. Jaundiced. Head: Normocephalic, atraumatic. Spider angioma noted on face. Cardiovascular: Regular rate and rhythm, no murmur, +S1/S2. Respiratory: Lungs are clear to auscultation, respirations unlabored, no crackles, no wheezing. Gastrointestinal: Soft, significantly distended. No guarding or rebound tenderness. Extremities: Diffuse edema in all extremities, no cyanosis, no clubbing. Distal extremeties cool to touch but with 2+ radial and pedal pulses bilaterally. Discharge Plan Problem List Was Problem List Reviewed/Reconciled?: Yes Plan Service Needed for Transfer: Interventional Radiology Prescriptions/Referrals Prescriptions/Med Rec: No Action albuterol sulfate [Proventil HFA] 6.7 GM HFA aerosol inhaler 2 puff Inhalation Q6HR PRN (Reason: WHEEZING) Qty: 0 Januvia 50 MG tablet 50 mg PO QDAY Qty: 0 alendronate 70 mg Tablet 70 mg PO QWEEK Rx Instructions: SUNDAY omeprazole 40 mg Capsule,Delayed Release(Dr/Ec) 40 mg PO EVERYOTHERDAY lactulose [Constulose] 10 gram/15 mL Solution 30 ml PO EVERYOTHERDAY montelukast 10 mg Tablet 10 mg PO DAILY atorvastatin 10 mg Tablet 10 mg PO DAILY metoprolol succinate 25 mg Tablet Extended Release 24 Hr 25 mg PO DAILY tamoxifen 20 mg tablet 20 mg PO DAILY dapagliflozin propanediol [Farxiga] 5 mg Tablet 5 mg PO DAILY budesonide-formoterol [Breyna] 160-4.5 mcg/actuation HFA aerosol inhaler 2 puff INHALATION Q12H Patient Comments: INHALE 2 PUFFS BY MOUTH TWICE DAILY furosemide 20 mg tablet 20 mg PO .48hr spironolactone 50 mg tablet 50 mg PO EVERYOTHERDAY calcium carbonate-vitamin D3 200 mg (500 mg) -400 unit tablet 1 tab PO QDAY Referrals: Amairani Barros MD [Primary Care Provider, Nephrology] Patient/Caregiver Discharge Instructions Print Language: Marshallese Quality Discharge Quality Measures VTE prophylaxis MD Attestestation MD Attestation Patient seen and examined with above resident, Shaun De La Rosa DO. I agree with the findings, assessment, and plan of care as documented except for any differences below. Patient awaiting bed placement at [facility] now. She remains hemodynamically stable on low-dose vasopressors. Patient continues to have stable heart rate. Abdominal distention remains stable with peak pressure reflecting abdominal pressures that have been stable throughout the day along with benign exams. Patient did not require repeat paracentesis. Single unit of PRBCs were transfused throughout the day. Urine output remains low bicarbonate and pH remained stable. No major electrolyte abnormalities warranting urgent/emergent hemodialysis at this point. Patient was charged with Lasix overnight with limited output. Continue to monitor for recovery of ATN. Left femoral arterial line was placed radial catheter could not be replaced at bedside. Patient's sons were at bedside and updated throughout the day including on status for pending transfer for IR embolization potentially. Continue to monitor cell counts and coagulation to ensure appropriate replacement with blood products as needed. The patient continues to have significant risk for further morbidity and mortality warranting close monitoring and care only available to ICU. Will remain sedated on mechanical ventilation until she is safely transferred to the receiving center. Total critical care time: I personally spent 35 minutes for review of physiologic parameters, directing plan of care throughout the day, coordination of care with other specialist, and counseling patient's family at bedside. This is exclusive of time spent teaching of staff performing any separate billable procedures. Patient requires critical care services for acute respiratory failure, acute hepatic/metabolic encephalopathy, cirrhosis, liver tumor complicated by hemoperitoneum, and hemorrhagic shock.
[2025-07-06 18:57] LABS: Reflex Lactate? Y
[2025-07-06 19:37] LABS: Base Excess -5 (-3-3); HCO3 21 mEq/L (20-26); Lactic Acid, 3 HR 2.8 mMol/L (0.4-2.0); O2 Saturation 98 % (91-98); PCO2 44 mmHg (32.0-48.0); PO2 90 mmHg (83-108); pH, Arterial 7.29 (7.35-7.45)
[2025-07-06 19:42] LABS: Allen Test Not Performed; Inspired Oxygen, FIO2 50 %; Puncture Site Arterial Line
[2025-07-06 19:53] LABS: Hematocrit 24.8 % (36.0-46.0)
[2025-07-06 19:54] LABS: Hemoglobin 8.5 g/dL (12.0-16.0)
[2025-07-06 20:01] LABS: Anion Gap 13 (7-16); BUN/Creatinine Ratio 13 Ratio (12-20); Blood Urea Nitrogen 19 mg/dL (9-23); Calcium 9.1 mg/dL (8.3-10.6); Carbon Dioxide 20.3 mMol/L (20.0-31.0); Chloride 115 mMol/L (98-107); Creatinine (Component) 1.5 mg/dL (0.6-1.3); Estimated Creatinine Clearance 33.8 mL/min (>60); Glucose 185 mg/dL (74-106); Osmolality,Calculated 301 (275-295); Potassium 4.3 mMol/L (3.4-5.1); Sodium 148 mMol/L (136-145); eGFR 36 See Note
[2025-07-06] MEDS: BUMETANIDE INJ 0.25 MG/ML VIAL 4 ML 2 MG IVP (20:17)
[2025-07-06] MEDS: Sodium Bicarb Inj 8.4% SYR 50 ML SYRINGE IV (21:36)
[2025-07-07] VITALS (23 sets, daily range): BP systolic 70–141; BP diastolic 38–60; PULSE 79–93; RESP 18–28; TEMP 37.3; O2SAT 97–98
[2025-07-07 01:05] LABS: Hematocrit 24.7 % (36.0-46.0)
[2025-07-07 01:10] LABS: Hemoglobin 8.6 g/dL (12.0-16.0)
[2025-07-07] MEDS: fentaNYL 2,500 MCG/250 ML BAG 2,500 MCG/250 ML BAG 30 MCG IV (02:02)
[2025-07-07] MEDS: VASOPRESSIN IN NS IVPB 20 UNIT/100 ML BAG 9 UNIT IV (02:37)
[2025-07-07] MEDS: PROPOFOL 1,000 MG IVPB 1,000 MG/100 ML VIAL 2.177 MG IV (04:37)
== END 2025-07-07 05:37 | disposition other institution (70) | DRG 393 ==
LOC: SERX 06:10 → SERHOLD 08:20 → S2SX 08:42
PROVIDERS: Specialist; Student in an Organized Health Care Education/Training Program; Admitting Provider Internal Medicine Critical Care Medicine; Emergency Provider Emergency Medicine; PCP Internal Medicine; Visit Provider Internal Medicine Critical Care Medicine
DX: K66.1 Hemoperitoneum (principal); J96.00 Acute respiratory failure, unspecified whether with hypoxia or hypercapnia; R57.1 Hypovolemic shock; T80.818A Extravasation of other vesicant agent, initial encounter; D62 Acute posthemorrhagic anemia; E87.0 Hyperosmolality and hypernatremia; N17.9 Acute kidney failure, unspecified; R18.8 Other ascites; R58 Hemorrhage, not elsewhere classified; E78.00 Pure hypercholesterolemia, unspecified; M81.0 Age-related osteoporosis without current pathological fracture; E11.65 Type 2 diabetes mellitus with hyperglycemia; E86.0 Dehydration; R16.0 Hepatomegaly, not elsewhere classified; I48.91 Unspecified atrial fibrillation; I10 Essential (primary) hypertension; D69.6 Thrombocytopenia, unspecified; K76.0 Fatty (change of) liver, not elsewhere classified; K74.60 Unspecified cirrhosis of liver; K76.82 Hepatic encephalopathy; Z85.3 Personal history of malignant neoplasm of breast; Z90.11 Acquired absence of right breast and nipple; E87.8 Other disorders of electrolyte and fluid balance, not elsewhere classified; E88.09 Other disorders of plasma-protein metabolism, not elsewhere classified; Z79.51 Long term (current) use of inhaled steroids; Z79.83 Long term (current) use of bisphosphonates; Z79.84 Long term (current) use of oral hypoglycemic drugs; Z79.899 Other long term (current) drug therapy; K80.20 Calculus of gallbladder without cholecystitis without obstruction
CPT/HCPCS: 36415; 36600; 51701; 71045; 74174; 80048; 80053; 80069; 81001; 82042; 82105; 82140; 82150; 82803; 82945; 83605; 83615; 83735; 84100; 84157; 84484; 85014; 85018; 85025; 85384; 85610; 86850; 86900; 86901; 86923; 86927; 86965; 87040; 87070; 87075; 87081; 87086; 87205; 87502; 87635; 89051; 93005; 94002; 94003; 96361; 96365; 96366; 96375; 99284; A4649; J0612; J0696; J1815; J1938; J2354; J2405; J2470; J2543; J2598; J2704; J3010; J3475; J3490; J7030; J7050; P9012; P9016; P9035; P9047; P9060; Q9967; A9270; P0947

== ENCOUNTER 2025-07-20 02:29 | Inpatient (IN) | payer MEDICARE, MEDICAID, SELFPAY ==
[2025-07-20] VITALS (119 sets, daily range): BP systolic 2–165; BP diastolic 2–130; PULSE 98–162; RESP 10–46; TEMP 36.1–37.2; O2SAT 90–99; BMI 35.4
--- NOTE | 2025-07-20 02:55 | EKG_ITS ---
[facility] Test Date: 2025-07-20 Pat Name: ADARSH LEAL [facility] Chief Accountant: MAINE : 1950 Requested By: Mata Thao Order Number: [id number] Reading MD: Mata Thao Measurements Intervals [place] Rate: 108 P: 22 MT: 160 QRS: 11 QRSD: 76 T: -18 QT: 343 QTc: 460 Interpretive Statements SINUS TACHYCARDIA POSSIBLE ANTERIOR MYOCARDIAL INFARCTION , PROBABLY OLD ABNORMAL RHYTHM ECG Compared to ECG 07/05/2025 06:13:32 Sinus rhythm no longer present Myocardial infarct finding still present /store/S0/[id number]
--- NOTE | 2025-07-20 03:04 | XR_ITS ---
EXAMINATION: AP chest single view TECHNIQUE: AP portable semiupright chest single view Date and time: July 20, 2025, 0322 hours, comparison July 05, 2025 INDICATIONS: History hypoxic respiratory failure post intubation, post extubation today FINDINGS: The patient has been extubated Feeding tube projects below the level of film in the stomach Left internal jugular central line tip SVC Prominent vascular congestion Opacity throughout the lungs edema and/or pneumonia Prominent osteopenia IMPRESSION: Heart failure pattern with prominent vascular congestion and edema Consider superimposed pneumonia in both lungs Left internal jugular central line tip right atrium
--- NOTE | 2025-07-20 03:15 | PD.RESHP ---
Documentation for date of: 07/20/25 HPI History of Present Illness Chief complaint: Transfer back from [facility] History of present illness: [facility] course: The patient is a 74-year-old female with a history of atrial fibrillation, liver cirrhosis, invasive ductal breast carcinoma (right) s/p mastectomy, HLD, T2DM, hemorrhoids, and osteoporosis was admitted to [facility] on 07/05/2025 for management of septic and hemorrhagic shock with hypothermia requiring pressors and massive transfusion protocol plus Dario hugger respectively. FOBT was positive however given patient's history of hemorrhoids another source of bleeding was suspected due to increasing size of her abdomen and large pulse pressure. Ultrasound of the abdomen showed fluid that was sufficient for paracentesis. Prior to paracentesis, patient became unstable requiring intubation for stabilization and CTA abdomen was performed which showed suspected abdominal bleed with liver lesion. It was found that patient had 5.6 x 5.5 cm enhancing right lower lobe liver lesion with extravasation of the contrast into the hemorrhage being located at the liver and surgeon was consulted and it was recommended that patient will need higher care facility for embolization. Patient was closely monitored for transfusion protocol and was transferred to [place] in stable condition. She was transferred to [place] for IR embolization for massive bleeding from liver lesion om 07/06. [place] [facility] course: Initially, patient remained stable and their surgeon did not recommend surgical resection of liver lesion due to concern of massive bleeding. On 07/10, they performed paracentesis followed by extubation on 07/11. She was downgraded to medical floors. On 07/13 she went into A-fib RVR after short run of NSVT received multiple boluses of metoprolol and 150 mg amnio which converted her back to sinus rhythm with soft blood pressure and was re-upgraded to ICU and was started on Levophed. On 07/15, A-fib RVR with hypotension and acute hemoglobin drop with elevated lactic acid. She was managed with pressors and massive transfusion protocol in ICU and IR embolization was performed and bruise was found in the left side of the abdomen. On 07/18: Overnight patient's tachycardia self resolved. She was kept on pressors for MAP above 75 for HRS. Urine output started decreasing. She was following commands better in the afternoon. On 07/19: Patient's heart rate was 90s?110s. She was mostly sinus rhythm. MAP goal was 75 with Levophed and vasopressin. CVP was at 6-18, BiPAP, net -1 L with 4 mg IV Bumex x twice daily and Diuril x 3. Diuresis based on CVP and urine output with goal of net -1 L. Insulin drip which was transitioned to subcu insulin. She is transfered back to [facility] off pressors on 07/20/2025 at 3 AM for continuation of care. PMH: As above SH:SURGICAL: Positive Angiogram (2016, 2022), Tonsillectomy, Mastectomy, Tubal Ligation and Section Allergies: NKDA SH: No smoking history. Current medications from [place]: Amiodarone 200 mg twice daily, midodrine 10 mg twice daily, lactulose 20 g 3 times daily, rifaximin 550 mg twice daily, NPH 20 units twice daily with lispro 10 units every 6 hourly along with sliding scale, Bumex 4 mg IV twice daily and 500 mg Diuril, tube feeds with Isolyte, DuoNebs every 6 hourly as needed Patient's current vitals blood pressure 155/51, heart rate 107, saturating 97% on 4 L nasal cannula. Afebrile. Labs revealed hemoglobin 9.7, hematocrit 29.5, platelet count 71. Coagulation panel and chemistry panel pending. ABGs showed pH 7.45, pCO2 44, pO2 69. Chest x-ray showed Prominent vascular congestion with mild left-sided pleural effusion.EKG showed sinus tachycardia with QTc [address]-T changes. Patient is transferred back to from [place] status post IR embolization for liver lesion. Review of Systems Review of Systems Systems Reviewed: All systems reviewed, normal except as documented Past Medical History Past Medical History CARDIAC: Positive Cardiac Disorders (HLD), Cardiac Arrhythmia, Atrial Fibrillation, Hypercholesterolemia, Edema and Hypertension RESPIRATORY: Positive Asthma and Bronchitis GASTROINTESTINAL: Positive Gastrointestinal Disorders, Cirrhosis, Gastroesophageal Reflux Disease and Obesity REPRODUCTIVE: Positive Breast Cancer and Previous Pregnancies MUSCULOSKELETAL: Positive Osteoporosis ENT: Positive Cataracts (BILATERAL EYES) ENDOCRINE: Positive Diabetes Mellitus Type 2 HEMATOLOGIC: Positive Anemia (DURING CHEMO) and Clotting Problems OTHER HISTORY: Positive Hospitalization, Shingles, Blood Transfusions, Anesthesia Reactions, Chemotherapy, Chicken Pox, Cancer and Breast Cancer Family History FAMILY HISTORY: Positive Family Respiratory Disorders, Family Cardiac Disorders, Family Gastrointestinal Problems and Family Cancer Surgical History SURGICAL: Positive Angiogram (20162022), Tonsillectomy, Mastectomy, Tubal Ligation and Section Exam Narrative Exam GENERAL APPEARANCE: Patient is alert to herself not oriented to time and place. Saturating well on BiPAP. HEENT: NC, AT. MMM. EOMI, yellow conjunctiva, oropharynx clear. Left IJ central line. NECK: Supple without lymphadenopathy. No stiffness or restricted ROM. HEART: regular rate and irregular rhythm, normal S1/S2, no m/r/g LUNGS: CTAB, moving air well. No crackles or wheezes are heard. ABDOMEN: Soft, nontender,distended with good bowel sounds heard. Bruising on the left flank and left lower part of the belly. BACK: Bruising on the left flank and left thigh. EXTREMITIES: Without cyanosis, clubbing or edema.Right radial art line NEUROLOGICAL: Grossly nonfocal. AO x 1., moving all 4 extremities. CN not formally tested but appear grossly intact. Skin: Icteric skin. Left abdominal and thigh with erythematous bruising up to the flank on the left side. Psych: Unable to assess Results: Labs 07/20/25 03:23 07/20/25 03:23 Quality Measures Quality Measures VTE prophylaxis (SCDs) Advance care planning discussed with:: other Medications Home Medications and Allergies Home Medications ?Medication ?Instructions ?Recorded ?Confirmed ?Type albuterol sulfate 90 mcg/actuation 2 puff inhalation Q6HR PRN 04/26/16 07/06/25 History aerosol inhaler (Proventil HFA) WHEEZING #0 inhalations sitagliptin phosphate 50 mg tablet 50 mg PO QDAY #0 tabs 09/10/17 07/06/25 History (Januvia) alendronate 70 mg tablet 70 mg PO QWEEK 09/04/18 07/06/25 History lactulose 10 gram/15 mL oral 30 ml PO EVERYOTHERDAY 09/04/18 07/06/25 History solution (Constulose) omeprazole 40 mg capsule,delayed 40 mg PO EVERYOTHERDAY 09/04/18 07/06/25 History release montelukast 10 mg tablet 10 mg PO DAILY 02/20/19 07/06/25 History atorvastatin 10 mg tablet 10 mg PO DAILY 12/22/22 07/06/25 History dapagliflozin propanediol 5 mg 5 mg PO DAILY 12/22/22 07/06/25 History tablet (Farxiga) metoprolol succinate 25 mg 25 mg PO DAILY 12/22/22 07/06/25 History tablet,extended release 24 hr tamoxifen 20 mg tablet 20 mg PO DAILY 12/22/22 07/06/25 History budesonide-formoterol HFA 160 2 puff inhalation Q12H 07/06/25 07/06/25 History mcg-4.5 mcg/actuation aerosol inhaler (Breyna) calcium carbonate 200 mg calcium 1 tab PO QDAY 07/06/25 07/06/25 History (500 mg)-vitamin D3 400 unit tablet furosemide 20 mg tablet 20 mg PO .48hr 07/06/25 07/06/25 History spironolactone 50 mg tablet 50 mg PO EVERYOTHERDAY 07/06/25 07/06/25 History Allergies Allergy/AdvReac Type Severity Reaction Status Date / Time No Known Allergies Allergy Verified 12/21/22 22:56 Visit Medications Acetaminophen (Acetaminophen 325 Mg Tablet) 650 mg PO Q6H PRN PRN Reason: Fever >101.4 or pain 1-3 Stop: 08/19/25 02:48 Albuterol/Ipratropium (Albuterol/Ipratropium (Duoneb) Rt Talya 3 Ml Nebu) 3 ml INH Q6HRRT PRN PRN Reason: wheezing Stop: 08/19/25 06:59 Amiodarone HCl (Amiodarone Hcl 200 Mg Tablet) 400 mg PO BID PABLO Stop: 08/19/25 21:00 Amiodarone HCl (Amiodarone Hcl 200 Mg Tablet) 200 mg PO QDAY PABLO Stop: 08/20/25 08:59 Dextrose (Dextrose 50%-Water Inj 50 Ml Syringe) 25 ml IV Q15MIN PRN PRN Reason: BG 50-70 responsive npo pt Stop: 08/19/25 02:57 Dextrose (Dextrose 50%-Water Inj 50 Ml Syringe) 50 ml IV Q15MIN PRN PRN Reason: BG <50 OR BG <70 & pt unresponsive Stop: 08/19/25 02:57 Glucagon (Glucagon Inj 1 Mg Vial) 1 mg IM Q15MIN PRN PRN Reason: BG <70, and no IV access Hydromorphone HCl (Hydromorphone Inj 2 Mg/Ml Vial) 0.2 mg IVP Q4HR PRN PRN Reason: severe pain 7-10 Stop: 07/25/25 03:07 Insulin Human Lispro (Insulin Lispro (Admelog) 1 Unit/0.01 Ml Unit) 0 unit SC Q6HR [facility]; Protocol Stop: 08/19/25 02:59 Insulin Human Lispro (Insulin Lispro (Admelog) 1 Unit/0.01 Ml Unit) 10 unit SC Q6HR PABLO Stop: 08/19/25 05:59 Insulin Human NPH (Insulin Nph 1 Unit/0.01 Ml (Per Unit)) 20 unit SC BID PABLO Stop: 08/19/25 08:59 Lactulose (Lactulose Syrup 20 Gm/30 Ml Udc) 20 gm PO TID PABLO; Protocol Stop: 08/19/25 05:59 Midodrine (Midodrine 5 Mg Tablet) 10 mg PO BID PABLO Stop: 08/19/25 02:59 Ondansetron HCl (Ondansetron Inj 2 Mg/Ml Inj 2 Ml) 4 mg IVP Q6H PRN; Protocol PRN Reason: NAUSEA OR VOMITING Stop: 08/19/25 02:48 Pantoprazole Sodium (Pantoprazole Inj 40 Mg Vial) 40 mg IVP QDAY [facility] Stop: 08/19/25 08:59 Rifaximin (Rifaximin 550 Mg Tablet) 550 mg PO BID PABLO Stop: 07/27/25 02:59 Discontinued Medications Acetaminophen (Acetaminophen 325 Mg Tablet) 650 mg PO Q6H PRN PRN Reason: PAIN SCALE 1-3 (mild Stop: 08/19/25 02:48 Assessment & Plan Plan The patient is a 74-year-old female with a history of atrial fibrillation, liver cirrhosis, invasive ductal breast carcinoma (right) s/p mastectomy, HLD, T2DM, hemorrhoids, and osteoporosis transferred back from [place] s/p IR embolization for liver lesion and received massive transfusion protocol at [place]. Neurology #Acute hepatic encephalopathy #Delirium -Patient has waxing and waning orientation overall improving alertness. She is AO x 1 [address]. Patient remembers her son. DDx: Metabolic due to liver cirrhosis, prolonged ICU stay, pain Rx -Continue with rifaximin 550 mg twice daily -Lactulose 20 g 3 times daily goal> 1 L stool output -Mental status improved hence not trending ammonia Rxx -Delirium precautions - Follow-up with ABGs #Pain Rx -Tylenol 650 mg every 8 as needed - Dilaudid 0.2 mg every 4 as needed Cardiovascular #Hemorrhagic shock, resolved -Patient developed acute bleeding with a hemoglobin drop and received massive transfusion protocol on 07/14 at [place]. -Patient had a IR guided embolization on 07/15 at [place]. - Current hemoglobin at 9 Rx - MAP goal> 75 for hepatorenal syndrome -Midodrine 10 mg twice daily -Off pressors Rxx - Follow-up with lactic acid and morning labs - Monitor hemoglobin closely #A-fib rate controlled #Narrow complex tachycardia - Patient had a history of A-fib per patient's son. She had an episode of A-fib RVR and was given metoprolol and amnio at [place]. Rx -Continuing amiodarone 400 mg twice daily for 1 day and transition to amiodarone 200 mg daily - Holding home metoprolol #Hyperlipidemia Rx -Holding home statin due to transaminitis Respiratory #AHRF, resoloing #Right middle lobe opacity and vascular congestion on chest x-ray -Patient was extubated at [place] on 07/11 and extubated. On 07/15. She has mild cough not very productive. -Chest x-ray showed mild opacity on the right side with left sided pleural effusion. Rx -Continue diuresis as per goal of urine output net negative -1 and based on CVP -Completed course of antibiotic -Oxygen as needed -BiPAP at night -Consider adding incentive spirometer once more stable Rxx - Follow-up with ABGs and chest x-ray #History of asthma Rx -DuoNebs Q6 hourly as needed GI and F/E/N #Bleeding liver lesion possible HCC s/p IR embolization #CASTANEDA cirrhosis #Coagulopathy -Patient had hemorrhagic shock secondary to arterial bleed from possible HCC. Hepatology recommends follow-up. Not a transplant candidate. IR recommend outpatient TASE. -INR 1.8 AST 149, ALT 125 Rx -Continue lactulose 20 3 times daily goal for BM 1 L and rifaximin 550 mg twice daily -Consider hep B vaccination when more stable Rxx - Monitor LFTs and hemoglobin - Transfuse if hemoglobin drop below 7 - Patient is not on chemical prophylaxis for DVT due to left flank bruising and consider adding if platelets above 50 #Hyperbilirubinemia - T. bili continues to rise. DDx: Possible 2/2 bleed with bruising, residual bleeding liver lesion - T. bili: 19 Rxx -Continue to monitor #Tube feeds -Patient failed swallow screen at [place]. On 07/17. Rx -Tube feeds to goal patient was on Isolyte at [place]. -Started Nepro at 50 cc/h and water flushes 50 cc/h -Dietitian consulted - Speech-language evaluation and refer to speech therapist Renal #COLE DDx: Hepatorenal syndrome, bleeding -Patient had a baseline creatinine of 0.8 then increased to 1.4 related to hemorrhagic shock on 07/05. Creatinine continued to uptrend. -Patient had pulm edema, anasarca, decreased urine output, elevated CVP and prior resuscitation possible causing volume overload. -She was started on diuresis on 07/18 with improvement in kidney functions at [place]. -On 07/19: BUN 52 creatinine 1.2 GFR 48. Rx -Continue IV diuresis -Patient was on 4 mg IV twice daily Bumex with Diuril 500 mg. Started Bumex 1 mg IV twice daily -Goal of diuresis net negative urine output 1 L and based on CV -Avoid nephrotoxic agents -Renally dose medications Rxx - Strict intake and output #Hypernatremia and hyperchloremia -Sodium 152, chloride 112 likely related to diuresis and acute blood loss Rx -Continue free water flushes 50 ml/hr Heme #Acute anemia due to hemorrhagic liver lesion, resolved #Thrombocytopenia due to liver cirrhosis #History of right invasive Ductal breast cancer s/p mastectomy Dx - Hemoglobin 9.7, platelet count 71 Rx -Continue to monitor platelets -Patient has a left flank bruising need close monitoring -SCDs for DVT prophylaxis Rxx - Daily labs #Left abdominal bruising - Patient was found to have left-sided abdominal bruising. Possible due to prior hemoperitoneum from liver mass. -CT abdomen pelvis was not performed due to concern for rising creatinine and concern for contrast-induced nephropathy. Bruising was not increased per [place]. Rx -Recommended to monitor hemoglobin and size of the bruising Endo #History of type 2 diabetes -Poor liver function was on insulin drip 07/18 was transition to subcutaneous Rx -NPH 20 units twice daily -Lispro 10 units every 6 hourly -Insulin sliding scale with hypoglycemia protocol MSK #Left upper extremity swelling complaint for IV extravasation, stable #?Occlusive thrombus left cephalic vein per [place] #Bilateral lower extremity pain Patient had left upper extremity swelling possible extravasation. Upper extremity DVT ultrasound negative. Patient is complaining of both lower extremities Rx - Daily dressing - Follow-up with repeat ultrasound Doppler both upper and lower extremity ID #Concern for aspiration ammonia #Concern for abdominal infection #Sepsis Patient received vancomycin + Zosyn [07/07 - 07/09], [07/14?07/16] along with Flagyl [07/09 - 07/13] No active antibiotics Rxx -Follow-up with blood cultures ICU Health Maintenance: DVT prophylaxis: SCDs GI prophylaxis: Protonix Diet: Tube feeds Núñez: PLACED Lines: Peripherals Drips: None Vent: None, BiPAP at night CODE STATUS: Full code Reason of hospitalization: Patient is transferred back from [place] s/p IR embolization for liver lesion possible HCC. Patient discussed with my attending, Dr. Kenrick zamorano MD, PGY 3
--- NOTE | 2025-07-20 03:32 | XR_ITS ---
Examination: Venous duplex lower extremity sonogram, bilateral. Date and time of exam: July 20, 2025, 0739 hours INDICATIONS: Acute blood loss with bilateral leg pain this week Technique: Multiple sonographic images of the deep venous system have been obtained. B-mode/2-D grayscale imaging of vascular structures and Doppler spectral analysis (waveforms) and color performed Both legs are examined. Findings: Deep venous systems do not demonstrate abnormal echogenicity. No diagnostic visualization right popliteal vein All visualized deep veins exhibit compressibility. . Impression: Limited study, no DVT demonstrated
[2025-07-20 03:38] LABS: Base Excess 6 (-3-3); HCO3 30 mEq/L (20-26); Inspired Oxygen, FIO2 99 %; O2 Saturation 95 % (91-98); PCO2 44 mmHg (32.0-48.0); PO2 69 mmHg (83-108); pH, Arterial 7.45 (7.35-7.45)
[2025-07-20 03:39] LABS: Allen Test Not Performed; Puncture Site Arterial Line
[2025-07-20 03:41] LABS: Basophils # (Auto) 0.0 Thou/mm3 (0.0-0.2); Basophils % (Auto) 1 % (0-2.5); Eosinophils # (Auto) 0.2 Thou/mm3 (0.0-0.5); Eosinophils % (Auto) 3 % (0-10); Hematocrit 29.5 % (36.0-46.0); Hemoglobin 9.7 g/dL (12.0-16.0); Immature Granulocytes Auto 0.10 Thou/mm3 (0.00-0.00); Lymphocytes # (Auto) 0.6 Thou/mm3 (1.0-4.8); Lymphocytes % (Auto) 8 % (10-50); Mean Corpuscular HGB Conc 32.9 g/dl (31.0-37.0); Mean Corpuscular Hemoglobin 30.0 pg (25.0-35.0); Mean Corpuscular Volume 91 fL (80-100); Monocytes # (Auto) 0.7 Thou/mm3 (0.0-0.8); Monocytes % (Auto) 10 % (0-12); Neutrophils # (Auto) 5.8 Thou/mm3 (1.8-7.7); Neutrophils % (Auto) 78 % (37-80); Nucleated Red Blood Cell # 0.00 Thou/mm3 (0.00-0.00); Nucleated Red Blood Cell % 0 /100 WBC (0); RDW Standard Deviation 56.1 fL (36.4-46.3); Red Blood Count 3.23 Miln/mm3 (4.00-5.20); White Blood Count 7.4 Thou/mm3 (3.6-11.0)
[2025-07-20 03:42] LABS: Platelet Count 71 Thou/mm3 (140-440)
[2025-07-20 04:03] LABS: INR 1.8 (0.9-1.3); Partial Thromboplastin Time 40.7 Seconds (22.0-36.0); Prothrombin Time 18.6 Seconds (9.0-12.2)
[2025-07-20 04:04] LABS: Alanine Aminotransferase 125 U/L (10-49); Albumin, Serum 3.5 gm/dL (3.4-4.8); Albumin/Globulin Ratio 1.2 (1.2-2.2); Alkaline Phosphatase 185 U/L (46-116); Anion Gap 11 (7-16); Aspartate Amino Transferase 149 U/L (0-34); BUN/Creatinine Ratio 43 Ratio (12-20); Blood Urea Nitrogen 52 mg/dL (9-23); Calcium 9.6 mg/dL (8.3-10.6); Calcium (Corrected) 10.0 mg/dL (8.5-10.1); Carbon Dioxide 28.6 mMol/L (20.0-31.0); Chloride 112 mMol/L (98-107); Creatinine (Component) 1.2 mg/dL (0.6-1.3); Globulin 2.9 gm/dL (2.3-3.5); Glucose 244 mg/dL (74-106); Magnesium 1.9 mg/dL (1.6-2.6); Osmolality,Calculated 323 (275-295); Phosphorous 2.6 mg/dL (2.4-5.1); Potassium 3.6 mMol/L (3.4-5.1); Sodium 152 mMol/L (136-145); Total Protein 6.4 gm/dL (5.7-8.2); eGFR 48 See Note
[2025-07-20 04:16] LABS: Slide Review Platelets confirmed
[2025-07-20 04:24] LABS: Bilirubin,Total 19.9 mg/dL (0.3-1.2)
[2025-07-20] MEDS: AMIODARONE HCL 200 MG TABLET 400 MG PO (04:43)
[2025-07-20] MEDS: MIDODRINE 5 MG TABLET 10 MG PO (04:44)
[2025-07-20] MEDS: INSULIN LISPRO (AdmeLOG) 1 UNIT/0.01 ML UNIT SC ×3 (05:00→17:59)
--- NOTE | 2025-07-20 05:16 | XR_ITS ---
Examination: Venous duplex upper extremity sonogram, bilateral. Date and time of exam: July 20, 2025, 0758 hours INDICATIONS: Occlusive thrombus left cephalic vein, confusion Technique: Multiple sonographic images of the deep venous system have been obtained. B-mode/2-D grayscale imaging of vascular structures and Doppler spectral analysis (waveforms) and color performed Both legs are examined. Findings: Deep venous systems do not demonstrate abnormal echogenicity. No diagnostic visualization right radial or ulnar veins, a cast on the arm No diagnostic visualization left jugular vein All visualized deep veins exhibit compressibility. All visualized deep veins exhibit augmentation. Impression: Limited study No acute DVT noted Positive for occlusive thrombus superficial left cephalic vein
[2025-07-20] MEDS: LACTULOSE SYRUP 20 GM/30 ML UDC PO ×3 (05:41→21:24)
[2025-07-20] MEDS: INSULIN LISPRO (AdmeLOG) 1 UNIT/0.01 ML UNIT 10 UNIT SC ×3 (05:41→17:59)
[2025-07-20 06:03] LABS: Lactate (Lactic Acid) 2.6 mMol/L (0.4-2.0)
[2025-07-20 06:11] LABS: Collection Type, Urine Clean Catch
[2025-07-20 07:02] LABS: Bilirubin,Urine 1+ (Negative); Blood,Urine 2+ (Negative); Budding Yeast,Urine Present; Color,Urine Yellow (Lt Yel-Yel); Glucose, Urine Negative (Negative); Granular Casts,Urine 1 /hpf (0-1); Hyaline Casts,Urine 1 /hpf (0-1); Ketones,Urine Negative (Negative); Leukocyte Esterase,Urine Positive (Negative); Nitrite,Urine Negative (Negative); PH,Urine 5.0 (5.0-7.0); Protein,Urine Negative (Neg - Trace); RBC,Urine 41 /hpf (0-3); Specific Gravity,Urine 1.010 (1.001-1.035); Squamous Epithelial Cell,Urine 1 /hpf (0-5); Urobilinogen,Urine Negative mg/dL (0.0-1.0); WBC,Urine 11 /hpf (0-5)
[2025-07-20 07:05] LABS: Clarity,Urine Hazy (Clear/Hazy)
[2025-07-20 08:58] LABS: Reflex Lactate? Y
--- NOTE | 2025-07-20 09:07 | ESPR_ITS ---
<Statement entered by Shon Jaeger MD - 07/20/25 16:41> I have reviewed the note and agree with the resident's assessment & plan with exceptions as below. I have personally reviewed labs, imaging, home meds/prior records, examined the patient, formulated and discussed management plan with my attending 74-year-old female with past medical history of A-fib (not on any anticoagulation), liver cirrhosis, invasive ductal breast carcinoma s/p mastectomy, hyperlipidemia, DM2, hemorrhoids, and osteoporosis who was initially admitted to the ICU on 07/05/2025 due to hypovolemic shock secondary to actively bleeding liver lesion. Patient was transferred to [place] on 07/06/2025 and subsequently was transferred back to our hospital last night. In [place] patient completed course of antibiotics as well as embolization by IR on the of this month. Patient's repeat hemoglobin today was stable and we will follow-up with daily CBCs. Patient's T bilirubin was significantly elevated this morning and 19.9 and patient does look more jaundiced and has icteric sclera on physical exam. Direct bilirubin was also elevated therefore less likely hemolysis and most likely due to liver disease. Spoke with the patient's sons at bedside and updated them about the patient's current condition and the guarded prognosis given that she has worsening liver function with increased bilirubin levels which could be causing kernicterus and likely will worsens patient's encephalopathy. Spoke to the patient's sons about the CODE STATUS as CODE STATUS currently full code, but given patient's current clinical condition and guarded prognosis wanted to ensure that it was still their wishes and it was the patient's best interest to remain full code, they stated that they will think about it and will give us an answer afterwards. Again spoke with the patient's sons about CODE STATUS and patient's poor prognosis and they were understanding. They signed POLST form with DNR DNI including no intubation, no chest compressions, and no defibrillation or cardioversion. Otherwise started cholestyramine twice daily to see if it helps improve hyperbilirubinemia. Also decrease Bumex to 1 mg daily. As patient is off vasopressors and currently is only requiring midodrine which will be scheduled 5 mg twice daily we we will downgrade back to the medical floors. Otherwise patient's prognosis is still very guarded and may need to do a goals of care discussion with family if no improvement in hyperbilirubinemia and encephalopathy. Shon Jaeger PGY2 Disclaimer: Even though this this note was dictated by speech recognition and even though it was carefully revised there may still be minor errors in comber fixer due to voice recognition software. Documentation for date of: 07/20/25 Subjective Subjective Interval history: Chief complaint: Transfer back from [facility] History of present illness: [facility] course: The patient is a 74-year-old female with a history of atrial fibrillation, liver cirrhosis, invasive ductal breast carcinoma (right) s/p mastectomy, HLD, T2DM, hemorrhoids, and osteoporosis was admitted to [facility] on 07/05/2025 for management of septic and hemorrhagic shock with hypothermia requiring pressors and massive transfusion protocol plus Dario hugger respectively. FOBT was positive however given patient's history of hemorrhoids another source of bleeding was suspected due to increasing size of her abdomen and large pulse pressure. Ultrasound of the abdomen showed fluid that was sufficient for paracentesis. Prior to paracentesis, patient became unstable requiring intubation for stabilization and CTA abdomen was performed which showed suspected abdominal bleed with liver lesion. It was found that patient had 5.6 x 5.5 cm enhancing right lower lobe liver lesion with extravasation of the contrast into the hemorrhage being located at the liver and surgeon was consulted and it was recommended that patient will need higher care facility for embolization. Patient was closely monitored for transfusion protocol and was transferred to [place] in stable condition. She was transferred to [place] for IR embolization for massive bleeding from liver lesion om 07/06. [place] [facility] course: Initially, patient remained stable and their surgeon did not recommend surgical resection of liver lesion due to concern of massive bleeding. On 07/10, they performed paracentesis followed by extubation on 07/11. She was downgraded to medical floors. On 07/13 she went into A-fib RVR after short run of NSVT received multiple boluses of metoprolol and 150 mg amnio which converted her back to sinus rhythm with soft blood pressure and was re-upgraded to ICU and was started on Levophed. On 07/15, A-fib RVR with hypotension and acute hemoglobin drop with elevated lactic acid. She was managed with pressors and massive transfusion protocol in ICU and IR embolization was performed and bruise was found in the left side of the abdomen. On 07/18: Overnight patient's tachycardia self resolved. She was kept on pressors for MAP above 75 for HRS. Urine output started decreasing. She was following commands better in the afternoon. On 07/19: Patient's heart rate was 90s?110s. She was mostly sinus rhythm. MAP goal was 75 with Levophed and vasopressin. CVP was at 6-18, BiPAP, net -1 L with 4 mg IV Bumex x twice daily and Diuril x 3. Diuresis based on CVP and urine output with goal of net -1 L. Insulin drip which was transitioned to subcu insulin. She is transfered back to [facility] [place] off pressors on 07/20/2025 at 3 AM for continuation of care. PMH: As above SH:SURGICAL: Positive Angiogram (2016, 2022), Tonsillectomy, Mastectomy, Tubal Ligation and Section Allergies: NKDA SH: No smoking history. Current medications from [place]: Amiodarone 200 mg twice daily, midodrine 10 mg twice daily, lactulose 20 g 3 times daily, rifaximin 550 mg twice daily, NPH 20 units twice daily with lispro 10 units every 6 hourly along with sliding scale, Bumex 4 mg IV twice daily and 500 mg Diuril, tube feeds with Isolyte, DuoNebs every 6 hourly as needed Patient's current vitals blood pressure 155/51, heart rate 107, saturating 97% on 4 L nasal cannula. Afebrile. Labs revealed hemoglobin 9.7, hematocrit 29.5, platelet count 71. Coagulation panel and chemistry panel pending. ABGs showed pH 7.45, pCO2 44, pO2 69. Chest x-ray showed Prominent vascular congestion with mild left-sided pleural effusion.EKG showed sinus tachycardia with QTc [address]-T changes. Patient is transferred back to from [place] status post IR embolization for liver lesion. Interval History: 07/20/2025 Patient was admitted overnight. Night team did notice upper extremity swelling, so bilateral venous Doppler of the upper extremities were taken, which was positive for occlusive thrombus in the superficial left cephalic vein. Patient was seen and evaluated at bedside. Overall condition is noted to be worse compared to when the patient was first admitted. While the patient is off of the ventilator and pressors, the patient is significantly jaundiced and noticeably has shaking all over her body. Patient was able to answer what her name was, but the patient could not say where she was and did not know what the date was. Patient appeared tender to palpation throughout her extremities. It was noted that the patient's bilirubin last 19.9, so direct bilirubin was added to a.m. labs, which showed direct bilirubin of 14.8. Since most of his bilirubin is conjugated, it is most likely a deficiency of the liver rather than hemolysis. Ammonia levels were ordered to further investigate possible hepatic encephalopathy, was noted to be only slightly elevated at 35. Patient to follow-up with GI, however prognosis is very guarded as the patient was noted to not be a candidate for liver transplantation by [facility] compensation analyst. The patient started to go into A-fib RVR early in the afternoon, so EKG was taken and amiodarone drip was started. A goals care discussion was had with the patient's 2 sons where the patient's guarded prognosis and current encephalopathy was discussed. The patient has 2 sons ultimately decided to pursue DNR/DNI and no cardioversion, but otherwise wants full treatment. The patient's family wanted to follow-up on if the cholestyramine decreased to bilirubin, so renal panel was ordered for later in the afternoon to reassess. Since the patient is otherwise stable, will downgrade the patient to the medical floors for further management. GI was consulted to provide further counselor education professor for the family members regarding the patient's prognosis. Exam Vital Signs Temp Pulse Resp BP Pulse Ox O2 Flow Rate FiO2 97.9 F 108 H 26 H 135/46 H 92 L 2 30 07/20/25 04:00 07/20/25 06:59 07/20/25 06:59 07/20/25 04:44 07/20/25 06:59 07/20/25 06:59 07/20/25 04:55 Narrative Exam GENERAL APPEARANCE: Patient is alert to herself not oriented to time and place. Saturating well on NC. Jaundiced appearance. Periodic whole body shaking motion. HEENT: NC, AT. MMM. EOMI, yellow conjunctiva, oropharynx clear. Left IJ central line. NECK: Supple without lymphadenopathy. No stiffness or restricted ROM. HEART: regular rate and irregular rhythm, normal S1/S2, no m/r/g LUNGS: CTAB, moving air well. No crackles or wheezes are heard. ABDOMEN: Soft, nontender,distended with good bowel sounds heard. Bruising on the left flank and left lower part of the belly. BACK: Bruising on the left flank and left thigh. EXTREMITIES: Without cyanosis, clubbing or edema. NEUROLOGICAL: Grossly nonfocal. AO x 1., moving all 4 extremities. CN not formally tested but appear grossly intact. Skin: Icteric skin. Left abdominal and thigh with erythematous bruising up to the flank on the left side. Psych: Unable to assess Objective Labs 07/22/25 05:18 07/22/25 05:18 Labs: Laboratory Results - last 24 hr 07/20/25 07/20/25 07/20/25 03:23 04:31 04:40 WBC 7.4 RBC 3.23 L Hgb 9.7 L Hct 29.5 L MCV 91 MCH 30.0 MCHC 32.9 RDW Std Deviation 56.1 H Plt Count 71 L D Neut % (Auto) 78 Lymph % (Auto) 8 L [place] % (Auto) 10 Eos % (Auto) 3 Baso % (Auto) 1 Neut # (Auto) 5.8 Lymph # (Auto) 0.6 L [place] # (Auto) 0.7 Eos # (Auto) 0.2 Baso # (Auto) 0.0 Immature Gran # (Auto) 0.10 H Absolute Nucleated RBC 0.00 Immature Gran % 1 H Nucleated RBC % 0 PT 18.6 H INR 1.8 H APTT 40.7 H Puncture Site Arterial Line ABG pH 7.45 ABG pCO2 44 ABG pO2 69 L ABG HCO3 30 H ABG O2 Saturation 95 ABG Base Excess 6 H FiO2 99 Sodium 152 H Potassium 3.6 Chloride 112 H Carbon Dioxide 28.6 Anion Gap 11 BUN 52 H Creatinine 1.2 Estim Creat Clear Calc Not Performed. eGFR 48 L BUN/Creatinine Ratio 43 H Glucose 244 H Calculated Osmolality 323 H Lactic Acid 2.6 H Calcium 9.6 Corrected Calcium 10.0 Phosphorus 2.6 Magnesium 1.9 Total Bilirubin 19.9 H* AST 149 H ALT 125 H Alkaline Phosphatase 185 H Total Protein 6.4 Albumin 3.5 Globulin 2.9 Albumin/Globulin Ratio 1.2 Ur Collection Type Clean Catch Urine Color Yellow Urine Clarity Hazy Urine pH 5.0 Ur Specific [place] 1.010 Urine Protein Negative Urine Glucose (UA) Negative Urine Ketones Negative Urine Blood 2+ A Urine Nitrite Negative Urine Bilirubin 1+ A Urine Urobilinogen (Auto) Negative Ur Leukocyte Esterase Positive Urine RBC 41 H Urine WBC 11 H Ur Squamous Epith Cells 1 Urine Bacteria None Hyaline Casts 1 Granular Casts 1 Urine Yeast (Budding) Present A Misc Test Result Platelets confirmed Blood Type O Positive Antibody Screen NEGATIVE Blood Bank Wristband ID Yes ABG Interpretation ABG results: 07/20/25 03:23 ABG pH 7.45 ABG pCO2 44 ABG pO2 69 L ABG HCO3 30 H ABG O2 Saturation 95 ABG Base Excess 6 H Quality Measures Quality Measures VTE prophylaxis (SCDs) Advance care planning discussed with:: patient and child Assessment & Plan Assessment Current Active Medications: Generic Name Dose Route Start Last Admin Trade Name Freq PRN Reason Stop Dose Admin Acetaminophen 650 mg 07/20/25 02:49 Acetaminophen 325 Mg Tablet PO 08/19/25 02:48 Q6H PRN Fever >101.4 or pain 1-3 Albuterol/Ipratropium 3 ml 07/20/25 03:01 Albuterol/Ipratropium (Duoneb) Rt Talya 3 Ml Nebu INH 08/19/25 06:59 Q6HRRT PRN wheezing Amiodarone HCl 400 mg 07/20/25 03:00 07/20/25 04:43 Amiodarone Hcl 200 Mg Tablet PO 07/21/25 02:59 400 mg BID PABLO Administration Amiodarone HCl 200 mg 07/21/25 09:00 Amiodarone Hcl 200 Mg Tablet PO 08/20/25 08:59 QDAY PABLO Bumetanide 1 mg 07/20/25 09:00 Bumetanide Inj 0.25 Mg/Ml Vial 4 Ml IVP 08/19/25 08:59 BID PABLO Dextrose 25 ml 07/20/25 02:58 Dextrose 50%-Water Inj 50 Ml Syringe IV 08/19/25 02:57 Q15MIN PRN BG 50-70 responsive npo pt Dextrose 50 ml 07/20/25 02:58 Dextrose 50%-Water Inj 50 Ml Syringe IV 08/19/25 02:57 Q15MIN PRN BG <50 OR BG <70 & pt unresponsive Glucagon 1 mg 07/20/25 02:58 Glucagon Inj 1 Mg Vial IM Q15MIN PRN BG <70, and no IV access Hydromorphone HCl 0.2 mg 07/20/25 03:08 Hydromorphone Inj 2 Mg/Ml Vial IVP 07/25/25 03:07 Q4HR PRN severe pain 7-10 Insulin Human Lispro 0 unit 07/20/25 03:00 07/20/25 05:00 Insulin Lispro (Admelog) 1 Unit/0.01 Ml Unit SC 08/19/25 02:59 2 unit Q6HR PABLO Administration Protocol Insulin Human Lispro 10 unit 07/20/25 06:00 07/20/25 05:41 Insulin Lispro (Admelog) 1 Unit/0.01 Ml Unit SC 08/19/25 05:59 10 unit Q6HR PABLO Administration Insulin Human NPH 20 unit 07/20/25 09:00 Insulin Nph 1 Unit/0.01 Ml (Per Unit) SC 08/19/25 08:59 BID PABLO Lactulose 20 gm 07/20/25 06:00 07/20/25 05:41 Lactulose Syrup 20 Gm/30 Ml Udc PO 08/19/25 05:59 20 gm TID PABLO Administration Protocol Midodrine 10 mg 07/20/25 03:00 07/20/25 04:44 Midodrine 5 Mg Tablet PO 08/19/25 02:59 10 mg BID PABLO Administration Ondansetron HCl 4 mg 07/20/25 02:49 Ondansetron Inj 2 Mg/Ml Inj 2 Ml IVP 08/19/25 02:48 Q6H PRN NAUSEA OR VOMITING Protocol Pantoprazole Sodium 40 mg 07/20/25 09:00 Pantoprazole Inj 40 Mg Vial IVP 08/19/25 08:59 QDAY PABLO Rifaximin 550 mg 07/20/25 03:00 07/20/25 04:44 Rifaximin 550 Mg Tablet PO 07/27/25 02:59 550 mg BID PABLO Administration Plan The patient is a 74-year-old female with a history of atrial fibrillation, liver cirrhosis, invasive ductal breast carcinoma (right) s/p mastectomy, HLD, T2DM, hemorrhoids, and osteoporosis transferred back from [place] s/p IR embolization for liver lesion and received massive transfusion protocol at [place]. Neurology #Acute hepatic encephalopathy #Delirium #Hyperbilirubinemia -Patient has waxing and waning orientation overall improving alertness. She is AO x [address]. Patient remembers her sons. DDx: Kernicterus, Metabolic due to liver cirrhosis, prolonged ICU stay, pain Dx Ammonia only slightly elevated at 35 on 07/20 Bilirubin elevated at 19.9 on 07/20 with direct bilirubin at 14.8, repeat renal showed bilirubin increased to 20.9, likely secondary to liver cirrhosis resulting in bilirubin stasis and buildup Rx -Continue with rifaximin 550 mg twice daily -Lactulose 20 g 3 times daily goal >1 L stool output -Cholestyramine 1 packet twice daily #Pain Rx -Tylenol 650 mg every 8h as needed - Dilaudid 0.25 mg every 4h as needed Cardiovascular #Hemorrhagic shock, resolved Dx -Patient developed acute bleeding with a hemoglobin drop and received massive transfusion protocol on 07/14 at [place]. -Patient had a IR guided embolization on 07/15 at [place]. -Current hemoglobin at 9, uptrended to 10.0 on repeat H&H on 07/20 Rx -MAP goal >75 -Midodrine 5 mg twice daily -s/p weaned off pressors -If hemoglobin drops, consider evaluating further bleeding into abdominal cavity #A-fib with RVR, rate controlled on amiodarone #Narrow complex tachycardia Dx - Patient had a history of A-fib per patient's son. She had an episode of A-fib RVR and was given metoprolol and amnio at [place]. - Patient had episode of A-fib with RVR early afternoon on 07/20 Rx -Restarted amiodarone gtt as patient had run of A-fib with RVR on oral amiodarone on 07/20, amiodarone gtt successfully resolved run of A-fib with RVR -Consider cardiology consultation #Hyperlipidemia Rx -Holding home statin due to transaminitis Respiratory #AHRF, resolving #Right middle lobe opacity and vascular congestion on chest x-ray -Patient was extubated at [place] on 07/11 and extubated. On 07/15. She has mild cough not very productive. -Chest x-ray showed mild opacity on the right side with left sided pleural effusion. Rx -Continue diuresis with Bumex 1 mg daily as per goal of urine output net negative -1L -Completed course of antibiotic -Oxygen as needed -BiPAP at night -Consider adding incentive spirometer once more stable #History of asthma Rx -DuoNebs Q6 hourly as needed GI and F/E/N #Bleeding liver lesion possible HCC s/p IR embolization #CASTANEDA cirrhosis #Coagulopathy -Patient had hemorrhagic shock secondary to arterial bleed from possible HCC. Hepatology recommends follow-up. Not a transplant candidate. IR recommend outpatient TASE. -INR 1.8 AST 149, ALT 125 Rx -Continue lactulose 20 3 times daily goal for BM 1 L and rifaximin 550 mg twice daily -Consider hep B vaccination when more stable -GI consulted, appreciate recommendations Rxx - Monitor LFTs and hemoglobin - Transfuse if hemoglobin drop below 7 - Patient is not on chemical prophylaxis for DVT due to left flank bruising and consider adding if platelets above 50, however can consider as patient does have history of left upper extremity vein occlusion and decreased Protein C and S due to liver cirrhosis #Hyperbilirubinemia Dx - T. bili: 19 -> 20.9 on 07/20 - Direct bilirubin 14.8 - Most likely secondary to liver cirrhosis Rx - Patient noted to not be liver transplant candidate as per [place] Slate Worker - GI consulted, appreciate recommendations - Discussed with family regarding highly guarded prognosis as resolution is unlikely wihout liver transplantation #Tube feeds -Patient failed swallow screen at [place]. On 07/17. Rx -Tube feeds to goal patient was on Isolyte at [place]. -Started Nepro at 50 cc/h and water flushes 50 cc/h -Dietitian consulted -Speech-language evaluation and refer to speech therapist, patient noted to have failed speech therapist swallow eval, will continue with tube feeds until further evaluation Renal #COLE, improving DDx: Hepatorenal syndrome, bleeding -Patient had a baseline creatinine of 0.8 then increased to 1.4 related to hemorrhagic shock on 07/05. Creatinine continued to uptrend. -Patient had pulm edema, anasarca, decreased urine output, elevated CVP and prior resuscitation possible causing volume overload. -She was started on diuresis on 07/18 with improvement in kidney functions at [place]. -On 07/19: BUN 52 creatinine 1.2 GFR 48. -On 07/20, BUN 49 and creatinine 0.5 Rx -Continue IV diuresis with Bumex 1 mg IV daily -Goal of diuresis net negative urine output 1 L and based on CV -Avoid nephrotoxic agents -Renally dose medications -Strict intake and output #Hypernatremia and hyperchloremia -Sodium 152, chloride 112 likely related to diuresis and acute blood loss Rx -Continue free water flushes 50 ml/hr Heme #Acute anemia due to hemorrhagic liver lesion, resolved #Thrombocytopenia due to liver cirrhosis #History of right invasive Ductal breast cancer s/p mastectomy Dx - Hemoglobin 9.7, platelet count 71 Rx -Continue to monitor platelets -Patient has a left flank bruising need close monitoring -SCDs for DVT prophylaxis Rxx - Daily labs #Left abdominal bruising - Patient was found to have left-sided abdominal bruising. Possible due to prior hemoperitoneum from liver mass. -CT abdomen pelvis was not performed due to concern for rising creatinine and concern for contrast-induced nephropathy. Bruising was not increased per [place]. Rx -Recommended to monitor hemoglobin and size of the bruising Endo #History of type 2 diabetes -Poor liver function was on insulin drip 07/18 was transition to subcutaneous Rx -NPH 20 units twice daily -Lispro 10 units every 6 hourly -Insulin sliding scale with hypoglycemia protocol MSK #Left upper extremity swelling complaint for IV extravasation, stable #Occlusive thrombus superficial left cephalic vein #Bilateral lower extremity pain Dx - Patient had left upper extremity swelling possible extravasation. Patient is complaining of both lower extremities - BUE ultrasound showed occlusive thrombus in superficial left cephalic vein Rx - Daily dressing - Consider chemical phrophylaxis once patient is downgraded to medical floors - Avoid using left arm for IVs ID #Concern for aspiration ammonia #Concern for abdominal infection #Sepsis Patient received vancomycin + Zosyn [07/07 - 07/09], [07/14?07/16] along with Flagyl [07/09 - 07/13] No active antibiotics Rxx -Follow-up with blood cultures ICU Health Maintenance: DVT prophylaxis: SCDs GI prophylaxis: Protonix Diet: Tube feeds Núñez: PLACED Lines: Peripherals, LIJ central line Drips: Amiodarone Vent: None, BiPAP at night CODE STATUS: DNR/DNI Reason of hospitalization: Patient is transferred back from [place] s/p IR embolization for liver lesion possible HCC. Patient discussed with my attending, Dr. Choudhary, and senior resident Dr. Hoang (PGY-2) Shaun De La Rosa, PGY-1 Attending Provider Attestation/Addendum pt seen and examined, d/w resident team. in brief this is a 74yo F transferred from [place]. She was originally sent to [place] for IR embolization of bleeding liver lesion. She was stabilized, underwent procedure and returned to [facility]. Originally she had required some vasopressor support at OSH however on transfer she was titrated off her vasopressors and arrived hemodynamically stable. She was noted to have severe jaundice and a Tbr of 19. She is awake and alert but very confused. General anasarca is present. GI eval was requested. She was started on Ursodiol. It is unclear if the liver mass is HCC v hemangioma and the pt appears to have progressed from cirrhosis to ESLD. Overall prognosis is poor however she is hemodynamically stable and able to be transferred to tele case d/w ICU team labs, imaging, records reviewed ~40min required for eval, exam, review, intervention, discussion and formulation of POC for this pt
[2025-07-20] MEDS: BUMETANIDE INJ 0.25 MG/ML VIAL 4 ML 1 MG IVP (09:56)
[2025-07-20 09:59] LABS: Lactic Acid, 3 HR 2.0 mMol/L (0.4-2.0)
[2025-07-20 10:06] LABS: Hematocrit 30.6 % (36.0-46.0); Hemoglobin 10.0 g/dL (12.0-16.0)
--- NOTE | 2025-07-20 10:06 | ECHO_ITS ---
Patient Info Name: Cyndy Schneider Age: 74 years : 1950 Gender: Female Ht: 150 cm Wt: 79 kg BSA: 1.86 m2 BP: 124 / 82 mmHg HR: 172 bpm Exam Date: 07/20/2025 1:46 PM Admit Date: 07/20/2025 Site: [facility] Room Number: 254 Patient Status: I Exam Type: CA echo doppler complete [employer] Systems Admin: Lulu Shah Ordering Physician: Shon Jaeger Study Info Indications A-fib, vascular congestion - Primary Location: S2SX Left Ventricular Outflow Tract Name Value Normal LVOT 2D LVOT Diameter 1.9 cm LVOT Doppler LVOT Peak Velocity 119 cm/s LVOT Mean Gradient 3 mmHg LVOT VTI 20 cm LVOT VTI/AV VTI Ratio 0.5 LVOT Stroke Volume 57 ml Pulmonic Valve Name Value Normal PV Doppler PV Peak Velocity 129 cm/s Mitral Valve Name Value Normal MV Doppler MV Decel Coffee 521 cm/s2 MV PHT 65 ms MV Area (PHT) 3.4 cm2 4.0-5.0 MV Diastolic Function MV E Peak Velocity 117 cm/s Tricuspid Valve Name Value Normal TV Regurgitation Doppler TR Peak Velocity 318 cm/s Estimated PAP/RSVP RA Pressure 8 mmHg <=5 PA Systolic Pressure 48 mmHg <36 RV Systolic Pressure 48 mmHg <36 Aortic Valve Name Value Normal AV 2D/MM AV Cusp Sep (MM) 1.1 cm AV Doppler AV Peak Velocity 255 cm/s AV Mean Gradient 16 mmHg AV VTI 41 cm AV Area (Cont Eq VTI) 1.4 cm2 >=3.0 AV Area (Cont Eq Tony) 1.3 cm2 AV DI (Tony) 0.47 AV Regurgitation 2D LVOT Area 2.8 cm2 Ventricles Name Value Normal LV Dimensions 2D/MM IVS Diastolic Thickness (2D) 0.9 cm 0.6-0.9 LVID Diastole (2D) 5.0 cm 3.8-5.2 LVIW Diastolic Thickness (2D) 0.7 cm 0.6-0.9 LVID Systole (2D) 3.5 cm 2.2-3.5 LVOT Diameter 1.9 cm LV Mass (2D Cubed) 135.80 g 67.00-162.00 LV Mass Index (2D Cubed) 73 g/m2 43-95 Relative Wall Thickness (2D) 0.28 <=0.42 IVS/LVIW Diastolic Thickness (2D) 1.29 0.00-1.50 LV Fractional Shortening/Ejection Fraction 2D/MM LV Fractional Shortening (2D) 30 % 27-45 LV EF (2D Teichholz) 57 % Atria Name Value Normal LA Dimensions LA Volume (4C A-L) 60 ml LA Volume (BP A-L) 55 ml Left Ventricle Left ventricular chamber dimension is normal. Left ventricular systolic function is normal with visually estimated ejection fraction of 55-60%. There is normal geometry noted in the left ventricle. Left ventricular segmental wall motion is normal. There is indeterminate diastolic function in the left ventricle. Right Ventricle Right ventricular chamber dimension is normal. Right ventricular systolic function is normal. Left Atrium Left atrial chamber dimension is mildly enlarged. Right Atrium Right atrial chamber dimension is normal. Aortic Valve The aortic valve is trileaflet. There is mild aortic valve sclerosis. There is no aortic valve stenosis with a peak velocity of 255 cm/s, mean gradient of 16 mmHg, and aortic valve area of 1.4 cm2. There is mild aortic valve regurgitation. Pulmonic Valve The pulmonic valve is normal. There is no pulmonic valve stenosis. There is trace pulmonic regurgitation. Mitral Valve The mitral valve has normal leaflets. There is no mitral valve stenosis. There is trace mitral valve regurgitation. Tricuspid Valve The tricuspid valve leaflets are normal. There is no tricuspid valve stenosis. There is mild tricuspid valve regurgitation. Pulmonary hypertension, estimated pulmonary arterial systolic pressure is 48 mmHg and systemic blood pressure of 124 mmHg in systole. Pericardium/Pleural The pericardium appears normal. There is no pericardial effusion. Pleural effusion visualized. Inferior Vena Cava Not well visualized inferior vena cava with >50% collapse upon inspiration consistent with normal right atrial pressure, 8 mmHg. Aorta The aortic measurements are indexed to age and body surface area. The aortic root at the sinus of Valsalva is not well visualized. The prox ascending aorta is not well visualized. Summary 1. Tachycardia. Left ventricle size is normal and systolic function is normal. Estimated ejection fraction is 55-60%. There is indeterminate diastolic function. 2. Right ventricle chamber size is normal and systolic function is normal. Estimated RVSP is 48 mmHg. 3. There is mild aortic valve sclerosis with no stenosis and mild regurgitation. 4. There is trace mitral valve regurgitation. 5. There is mild tricuspid valve regurgitation. 6. trace pulmonic valve regurgitation. 7. The left atrium is mildly enlarged. The right atrium is normal. Report Signatures Finalized by Reji Hidalgo on 07/20/2025 04:58 PM
[2025-07-20] MEDS: INSULIN NPH 1 UNIT/0.01 ML (PER UNIT) 20 UNIT SC ×2 (10:07→21:25)
[2025-07-20] MEDS: CHOLESTYRAMINE/SUCROSE 1 PKT EA PO ×2 (10:09→21:25)
[2025-07-20 10:20] LABS: Ammonia 35 uMol/L (11-32)
[2025-07-20 10:27] LABS: Bilirubin,Direct 14.8 mg/dL (0.0-0.3)
[2025-07-20] MEDS: ONDANSETRON INJ 2 MG/ML INJ 2 ML 4 MG IVP (11:17)
--- NOTE | 2025-07-20 11:49 | PCS.ST ---
Swallow Evaluation completed. See report for details. Pt is not safe for a PO diet at this time. Recommend to continue non-oral nutrition. ST services for swallowing tx and diet readiness.
[2025-07-20] MEDS: HYDROmorphone INJ 2 MG/ML VIAL IVP (13:27)
--- NOTE | 2025-07-20 13:41 | EKG_ITS ---
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
[2025-07-20] MEDS: Magnesium Sulfate 2 GM Ivpb 2 GM/50 ML BAG IV (14:29)
[2025-07-20] MEDS: POTASSIUM CHL 20 mEq IVPB 20 MEQ/100 ML BAG 50 MEQ IV ×2 (14:37→16:25)
[2025-07-20] MEDS: AMIODARONE 150 MG IVPB 150 MG/100 ML BAG 600 MG IV (14:39)
[2025-07-20] MEDS: AMIODARONE 360 MG IVPB 360 MG/200 ML BAG 33.333 MG IV (15:02)
--- NOTE | 2025-07-20 16:52 | XR_ITS ---
Examination: Abdomen sonogram, Limited Date and time of exam: July 20, 2025, 1733 hours INDICATIONS: Abdominal pain and jaundice beginning 2 days ago Technique: Real-time jackman scale transabdominal sonographic images of the upper abdomen obtained. Findings: Gallbladder sludge Gallbladder wall is thickened 0.48 cm No definite gallstones Enlarged common bile duct 10 mm no definite stones Pancreatic head 2.8 cm Liver 16.0 cm hyperechoic right lobe liver mass 3.8 x 3.3 x 3.3 cm Normal hepatopetal portal venous flow Patent IVC IMPRESSION: Gallbladder sludge Abnormal thickening gallbladder wall Enlarged common bile duct 1.0 cm no definite stones Mild hepatomegaly hyperechoic calcified mass right lobe of the liver 3.8 x 3.3 x 3.3 cm Recommend MRI abdomen pre and postcontrast, MRCP follow-up
--- NOTE | 2025-07-20 17:38 | ESPR_ITS ---
<Statement entered by Ata Bailey MD - 07/28/25 08:40> I reviewed above note and agree with findings and plans. I have also personally examined the patient with medicine team and went over assessment and plan with medical team including internet media planner and resident physician. <Statement entered by Kat Hargrove MD - 07/21/25 16:00> Pt is seen at bedside in ICU. Pt is a 74-year-old female with a history of atrial fibrillation, liver cirrhosis, invasive ductal breast carcinoma (right) s/p mastectomy and T2DM was admitted to [facility] on 07/05/2025 due to hemorrhagic shock. Pt was found to have massive bleeding from liver tumor. pt was transferred to [place] for IR embolization for massive bleeding from liver lesion om 07/06 and transferred back on 07/20. Although Hgb is stable,Pt has worsening liver function with elevated total billirubin of > 17. US showed CBD dialtion but no stones. GI recommended MRCP. Will consult cardiology for A-fib with RVR. Per cardio recs will continue metoprolol pushes and discontinue amiodarone. Pt's progonosis is guarded and family is made aware of it. Will hold goals of care discussion tomorrow if Pt continues to worsen. Patient was seen and examined by me personally. I have directly supervised and reviewed documentation by the team resident and agree with its findings. ------- Plan of care was discussed with the attending, Dr. Lynn Hargrove, PGY-2 Documentation for date of: 07/20/25 Subjective Subjective Interval history: * Patient seen and examined at bedside. * Downgraded to the floors from ICU on 07/16/2025. * Patient is in A-fib, will do metoprolol pushes for sustained heart rate above 130 per cardiology. Will also discontinue amiodarone. * GI plans for MRCP. * Family does not want cardioversion or any other shocks. * Patient is jaundiced with severe hyperbilirubinemia. Exam Vital Signs Temp Pulse Resp BP Pulse Ox O2 Flow Rate FiO2 97 F 153 H 31 H 127/90 H 97 2 30 07/20/25 16:00 07/20/25 16:00 07/20/25 16:00 07/20/25 16:00 07/20/25 16:00 07/20/25 06:59 07/20/25 04:55 Narrative Exam General: Jaundiced. Nasal feeding tube in place. Ill-appearing woman. Neurologic: GCS 15. Alert and oriented x1, no gross neurological deficit, and patient able to move all 4 extremities. HEENT: Scleral icterus. Normocephalic, atraumatic. Pupils reactive to light. Heart: Tachycardic, irregular rhythm. Lungs: Clear to auscultation bilaterally with no wheezing or crackles. Abdomen: Distended, ascites, apparent tinea infections bilaterally at the hips. Extremities: 2+ pitting edema in the lower extremities bilaterally. 2+ radial and dorsalis pedis pulses bilaterally. Skin: Warm. Dry. No rash or ecchymoses. Objective Labs 07/20/25 09:40 07/20/25 16:20 Labs: Laboratory Results - last 24 hr 07/20/25 07/20/25 07/20/25 03:23 04:31 04:40 WBC 7.4 RBC 3.23 L Hgb 9.7 L Hct 29.5 L MCV 91 MCH 30.0 MCHC 32.9 RDW Std Deviation 56.1 H Plt Count 71 L D Neut % (Auto) 78 Lymph % (Auto) 8 L Kingman % (Auto) 10 Eos % (Auto) 3 Baso % (Auto) 1 Neut # (Auto) 5.8 Lymph # (Auto) 0.6 L Kingman # (Auto) 0.7 Eos # (Auto) 0.2 Baso # (Auto) 0.0 Immature Gran # (Auto) 0.10 H Absolute Nucleated RBC 0.00 Immature Gran % 1 H Nucleated RBC % 0 PT 18.6 H INR 1.8 H APTT 40.7 H Puncture Site Arterial Line ABG pH 7.45 ABG pCO2 44 ABG pO2 69 L ABG HCO3 30 H ABG O2 Saturation 95 ABG Base Excess 6 H FiO2 99 Sodium 152 H Potassium 3.6 Chloride 112 H Carbon Dioxide 28.6 Anion Gap 11 BUN 52 H Creatinine 1.2 Estim Creat Clear Calc Not Performed. eGFR 48 L BUN/Creatinine Ratio 43 H Glucose 244 H Calculated Osmolality 323 H Lactic Acid 2.6 H Calcium 9.6 Corrected Calcium 10.0 Phosphorus 2.6 Magnesium 1.9 Total Bilirubin 19.9 H* Direct Bilirubin AST 149 H ALT 125 H Alkaline Phosphatase 185 H Ammonia Total Protein 6.4 Albumin 3.5 Globulin 2.9 Albumin/Globulin Ratio 1.2 Ur Collection Type Clean Catch Urine Color Yellow Urine Clarity Hazy Urine pH 5.0 Ur Specific Mason 1.010 Urine Protein Negative Urine Glucose (UA) Negative Urine Ketones Negative Urine Blood 2+ A Urine Nitrite Negative Urine Bilirubin 1+ A Urine Urobilinogen (Auto) Negative Ur Leukocyte Esterase Positive Urine RBC 41 H Urine WBC 11 H Ur Squamous Epith Cells 1 Urine Bacteria None Hyaline Casts 1 Granular Casts 1 Urine Yeast (Budding) Present A Misc Test Result Platelets confirmed Blood Type O Positive Antibody Screen NEGATIVE Blood FRM Study Course Wristband ID Yes 07/20/25 09:40 WBC RBC Hgb 10.0 L Hct 30.6 L MCV MCH MCHC RDW Std Deviation Plt Count Neut % (Auto) Lymph % (Auto) Kingman % (Auto) Eos % (Auto) Baso % (Auto) Neut # (Auto) Lymph # (Auto) Kingman # (Auto) Eos # (Auto) Baso # (Auto) Immature Gran # (Auto) Absolute Nucleated RBC Immature Gran % Nucleated RBC % PT INR APTT Puncture Site ABG pH ABG pCO2 ABG pO2 ABG HCO3 ABG O2 Saturation ABG Base Excess FiO2 Sodium Potassium Chloride Carbon Dioxide Anion Gap BUN Creatinine Estim Creat Clear Calc eGFR BUN/Creatinine Ratio Glucose Calculated Osmolality Lactic Acid 2.0 Calcium Corrected Calcium Phosphorus Magnesium Total Bilirubin Direct Bilirubin 14.8 H AST ALT Alkaline Phosphatase Ammonia 35 H Total Protein Albumin Globulin Albumin/Globulin Ratio Ur Collection Type Urine Color Urine Clarity Urine pH Ur Specific Mason Urine Protein Urine Glucose (UA) Urine Ketones Urine Blood Urine Nitrite Urine Bilirubin Urine Urobilinogen (Auto) Ur Leukocyte Esterase Urine RBC Urine WBC Ur Squamous Epith Cells Urine Bacteria Hyaline Casts Granular Casts Urine Yeast (Budding) Misc Test Result Blood Type Antibody Screen [facility] Interpretation ABG results: 07/20/25 03:23 ABG pH 7.45 ABG pCO2 44 ABG pO2 69 L ABG HCO3 30 H ABG O2 Saturation 95 ABG Base Excess 6 H Quality Measures Quality Measures VTE prophylaxis (SCDs) Advance care planning discussed with:: patient Assessment & Plan Assessment Current Active Medications: Generic Name Dose Route Start Last Admin Trade Name Freq PRN Reason Stop Dose Admin Acetaminophen 650 mg 07/20/25 02:49 Acetaminophen 325 Mg Tablet PO 08/19/25 02:48 Q6H PRN Fever >101.4 or pain 1-3 Albuterol/Ipratropium 3 ml 07/20/25 03:01 Albuterol/Ipratropium (Duoneb) Rt Talya 3 Ml Nebu INH 08/19/25 06:59 Q6HRRT PRN wheezing Amiodarone HCl 400 mg 07/20/25 03:00 07/20/25 09:55 Amiodarone Hcl 200 Mg Tablet PO 07/21/25 02:59 Not Given BID PABLO Amiodarone HCl 200 mg 07/21/25 09:00 Amiodarone Hcl 200 Mg Tablet PO 08/20/25 08:59 QDAY PABLO Bumetanide 1 mg 07/21/25 09:00 Bumetanide Inj 0.25 Mg/Ml Vial 4 Ml IVP 08/20/25 08:59 QDAY PABLO Cholestyramine Resin 1 pkt 07/20/25 10:00 07/20/25 10:09 Cholestyramine/Sucrose 1 Pkt Ea PO 08/19/25 09:59 1 pkt BID PABLO Administration Dextrose 25 ml 07/20/25 02:58 Dextrose 50%-Water Inj 50 Ml Syringe IV 08/19/25 02:57 Q15MIN PRN BG 50-70 responsive npo pt Dextrose 50 ml 07/20/25 02:58 Dextrose 50%-Water Inj 50 Ml Syringe IV 08/19/25 02:57 Q15MIN PRN BG <50 OR BG <70 & pt unresponsive Glucagon 1 mg 07/20/25 02:58 Glucagon Inj 1 Mg Vial IM Q15MIN PRN BG <70, and no IV access Hydromorphone HCl 0.25 mg 07/20/25 16:04 Hydromorphone Inj 2 Mg/Ml Vial IVP 07/25/25 03:07 Q4HR PRN severe pain 7-10 Potassium Chloride 20 meq in 100 mls @ 50 mls/hr 07/20/25 14:06 07/20/25 16:25 Kcl Ivpb IV 07/20/25 18:05 50 mls/hr Q2H PABLO Administration Amiodarone HCl/Dextrose 360 mg in 200 mls @ 33.333 mls/hr 07/20/25 14:29 07/20/25 15:02 Nexterone Ivpb IV 07/20/25 20:28 33.333 mls/hr .Q6H ONE Administration Amiodarone HCl/Dextrose 360 mg in 200 mls @ 16.667 mls/hr 07/20/25 20:29 Nexterone Ivpb IV 07/21/25 20:28 .Q12H PABLO Insulin Human Lispro 0 unit 07/20/25 03:00 07/20/25 12:26 Insulin Lispro (Admelog) 1 Unit/0.01 Ml Unit SC 08/19/25 02:59 2 unit Q6HR PABLO Administration Protocol Insulin Human Lispro 10 unit 07/20/25 06:00 07/20/25 12:26 Insulin Lispro (Admelog) 1 Unit/0.01 Ml Unit SC 08/19/25 05:59 10 unit Q6HR PABLO Administration Insulin Human NPH 20 unit 07/20/25 09:00 07/20/25 10:07 Insulin Nph 1 Unit/0.01 Ml (Per Unit) SC 08/19/25 08:59 20 unit BID PABLO Administration Lactulose 20 gm 07/20/25 06:00 07/20/25 14:10 Lactulose Syrup 20 Gm/30 Ml Udc PO 08/19/25 05:59 20 gm TID PABLO Administration Protocol Midodrine 5 mg 07/20/25 17:30 Midodrine 5 Mg Tablet PO 08/19/25 17:29 BIDWM PABLO Ondansetron HCl 4 mg 07/20/25 02:49 Ondansetron Inj 2 Mg/Ml Inj 2 Ml IVP 08/19/25 02:48 Q6H PRN NAUSEA OR VOMITING Protocol Pantoprazole Sodium 40 mg 07/20/25 09:00 07/20/25 09:55 Pantoprazole Inj 40 Mg Vial IVP 08/19/25 08:59 40 mg QDAY PABLO Administration Rifaximin 550 mg 07/20/25 03:00 07/20/25 10:09 Rifaximin 550 Mg Tablet PO 07/27/25 02:59 550 mg BID PABLO Administration Plan Summary: [facility] course: The patient is a 74-year-old female with a history of atrial fibrillation, liver cirrhosis, invasive ductal breast carcinoma (right) s/p mastectomy, HLD, T2DM, hemorrhoids, and osteoporosis was admitted to [facility] on 07/05/2025 for management of septic and hemorrhagic shock with hypothermia requiring pressors and massive transfusion protocol plus Dario hugger respectively. FOBT was positive however given patient's history of hemorrhoids another source of bleeding was suspected due to increasing size of her abdomen and large pulse pressure. Ultrasound of the abdomen showed fluid that was sufficient for paracentesis. Prior to paracentesis, patient became unstable requiring intubation for stabilization and CTA abdomen was performed which showed suspected abdominal bleed with liver lesion. It was found that patient had 5.6 x 5.5 cm enhancing right lower lobe liver lesion with extravasation of the contrast into the hemorrhage being located at the liver and surgeon was consulted and it was recommended that patient will need higher care facility for embolization. Patient was closely monitored for transfusion protocol and was transferred to [place] in stable condition. She was transferred to [place] for IR embolization for massive bleeding from liver lesion on 07/06. [facility] course: Initially, patient remained stable and [facility] surgeon did not recommend surgical resection of liver lesion due to concern of massive bleeding. On 07/10, they performed paracentesis followed by extubation on 07/11. She was downgraded to medical floors. On 07/13 she went into A-fib RVR after short run of NSVT received multiple boluses of metoprolol and 150 mg amnio which converted her back to sinus rhythm with soft blood pressure and was re-upgraded to ICU and was started on Levophed. On 07/15, A-fib RVR with hypotension and acute hemoglobin drop with elevated lactic acid. She was managed with pressors and massive transfusion protocol in ICU and IR embolization was performed and bruise was found in the left side of the abdomen. On 07/18: Overnight patient's tachycardia self resolved. She was kept on pressors for MAP above 75 for HRS. Urine output started decreasing. She was following commands better in the afternoon. On 07/19: Patient's heart rate was 90s?110s. She was mostly sinus rhythm. MAP goal was 75 with Levophed and vasopressin. CVP was at 6-18, BiPAP, net -1 L with 4 mg IV Bumex x twice daily and Diuril x 3. Diuresis based on CVP and urine output with goal of net -1 L. Insulin drip which was transitioned to subcu insulin. She was transfered back to [facility] ICU off pressors on 07/20/2025 at 3 AM for continuation of care. Per the ICU team on receiving the patient back from [place], the night team did notice upper extremity swelling, so bilateral venous Doppler of the upper extremities were taken, which was positive for occlusive thrombus in the superficial left cephalic vein. Patient was seen and evaluated at bedside. Overall condition is noted to be worse compared to when the patient was first admitted. While the patient is off of the ventilator and pressors, the patient is significantly jaundiced and noticeably has shaking all over her body. Patient was able to answer what her name was, but the patient could not say where she was and did not know what the date was. Patient appeared tender to palpation throughout her extremities. It was noted that the patient's bilirubin last 19.9, so direct bilirubin was added to a.m. labs, which showed direct bilirubin of 14.8. Since most of his bilirubin is conjugated, it is most likely a deficiency of the liver rather than hemolysis. Ammonia levels were ordered to further investigate possible hepatic encephalopathy, was noted to be only slightly elevated at 35. Patient to follow-up with GI, however prognosis is very guarded as the patient was noted to not be a candidate for liver transplantation by [facility] coating technician. The patient was downgraded to the floor team on 07/16/2025. #A-fib * Patient is still tachycardic with a rate in the 140s Plan: * Metoprolol 5 mg IV push as needed for heart rate sustained over 130 * Per cardiology, will discontinue amiodarone 200 mg p.o. twice daily Amiodarone drip * Digoxin 0.25 mg IV push x 1 given * Cardiology consulted * Patient's family does not request cardioversion * Holding home metoprolol * Holding diltiazem pushes due to patient low blood pressure #Acute encephalopathy secondary to #Acute liver failure secondary to #Liver mass #Elevated Total Bilirubin #Jaundice #CASTANEDA cirrhosis #Bleeding liver lesion possible hepatocellular carcinoma status post IR embolization #Coagulopathy * Repeat total bilirubin 20.9, direct bilirubin from earlier lab 14.8. This may reinforce an obstructive etiology likely secondary to the mass. * CT abdomen pelvis on 07/05/2025 showed a 5.6 x 5.5 cm enhancing mass in the lower right lobe of the liver with possible active bleeding. * Patient had hemorrhagic shock secondary to arterial bleed from possible HCC. * Child-Bundy score 12 = class III * MELD Score 25 = 19.6% estimated 3-month mortality Plan: * Continue with rifaximin 550 mg twice daily * Lactulose 20 g 3 times daily goal> 1 L stool output * Cholestyramine twice daily * Patient is not a transplant candidate per [facility]. * IR recommend outpatient TASE. * Monitor LFTs and hemoglobin * Transfuse if hemoglobin drop below 7 * Patient is not on chemical prophylaxis for DVT due to left flank bruising, will consider adding if platelets above 50 * GI plans for MRCP, if clear obstruction then CBD stenting may be helpful #Acute anemia secondary to #Hemorrhagic shock (Resolved) * Patient was in hemorrhagic shock requiring 7 units of PRBCs at [facility], 2 units of FFP. Another massive transfusion protocol was activated at [place]. * Hemoglobin hematocrit stable * Patient is status post IR guided embolization on 07/15/2025 at [facility] Plan: * Midodrine 5 mg twice daily #Occlusive thrombus superficial left cephalic vein * Results of venous Doppler 07/16/2025 Plan: * No active intervention at this time #Hyperlipidemia Plan: * Holding home statin #Acute hypoxic respiratory failure (Resolving) #Vascular congestion * Chest x-ray showed prominent vascular congestion and edema, possible superimposed pneumonia in both lungs. * Echocardiogram showed no sign of diastolic dysfunction Plan: * Bumex 1 mg IV push daily * Oxygen as needed * BiPAP at night #History of asthma Plan: * DuoNebs Q6 hourly as needed #Tube feeds * Patient failed swallow screen at [facility]. On 07/17. Plan: * Tube feeds to goal patient was on Isolyte at [facility]. * Started Nepro at 50 cc/h and water flushes 50 cc/h * Dietitian consulted * Speech-language evaluation and refer to speech therapist #Hypernatremia and hyperchloremia * Sodium 152, chloride 112 likely related to diuresis and acute blood loss Plan: * Continue free water flushes 50 ml/hr #History of right invasive Ductal breast cancer s/p mastectomy Plan: * No direct intervention at this time #Thrombocytopenia due to liver cirrhosis * Hemoglobin stable platelet count 71 Plan: * Monitor platelets with daily labs #History of type 2 diabetes * Poor liver function was on insulin drip 07/18 was transition to subcutaneous Plan: * NPH 20 units twice daily * Lispro 10 units every 6 hourly * Insulin sliding scale with hypoglycemia protocol #Concern for aspiration ammonia #Concern for abdominal infection #Sepsis (Resolved) * Patient received vancomycin + Zosyn [07/07 - 07/09], [07/14?07/16] along with Flagyl [07/09 - 07/13] * No active antibiotics Plan: * Follow-up with blood cultures Hospital Maintenance: DVT prophylaxis: SCDs GI prophylaxis: Protonix Diet: Tube feeds Núñez: PLACED Lines: Peripherals Drips: None Vent: None, BiPAP at night CODE STATUS: DNR/DNI Disposition: Patient was transferred back from [place] s/p IR embolization for liver lesion possible HCC. Patient downgraded from ICU to floors on 07/20/2025. Metoprolol 5 mg IV pushes as needed for heart rate sustained over 130. Stopped amiodarone. GI plans for MRCP. Patient was seen and discussed with my attending physician Dr. Lynn DELGADILLO and my senior resident Dr. Delvin DELGADILLO PGY-2. Luis Rodríguez DO PGY-1.
[2025-07-20 17:39] LABS: Alanine Aminotransferase 112 U/L (10-49); Albumin, Serum 3.3 gm/dL (3.4-4.8); Albumin/Globulin Ratio 1.1 (1.2-2.2); Alkaline Phosphatase 162 U/L (46-116); Anion Gap 8 (7-16); Aspartate Amino Transferase 135 U/L (0-34); BUN/Creatinine Ratio 98 Ratio (12-20); Blood Urea Nitrogen 49 mg/dL (9-23); Calcium 10.0 mg/dL (8.3-10.6); Calcium (Corrected) 10.6 mg/dL (8.5-10.1); Carbon Dioxide 29.9 mMol/L (20.0-31.0); Chloride 113 mMol/L (98-107); Creatinine (Component) 0.5 mg/dL (0.6-1.3); Estimated Creatinine Clearance 90.0 mL/min (>60); Globulin 2.9 gm/dL (2.3-3.5); Glucose 240 mg/dL (74-106); Osmolality,Calculated 320 (275-295); Potassium 3.7 mMol/L (3.4-5.1); Sodium 151 mMol/L (136-145); Total Protein 6.2 gm/dL (5.7-8.2); eGFR > 60 See Note
[2025-07-20 17:46] LABS: Bilirubin,Total 20.9 mg/dL (0.3-1.2)
[2025-07-20] MEDS: DIGOXIN INJ 0.25 MG/ML AMP 2 ML IVP (18:07)
--- NOTE | 2025-07-20 18:48 | ESCONSULT_ITS ---
<Statement entered by Reji Hidalgo MD - 07/23/25 15:43> I personally evaluated examined this patient intensive care unit the patient's 74-year-old unfortunate lady with multiple medical problems including possible carcinoma of the liver metastatic carcinoma has significant severe jaundice came to the hospital with atrial fibrillation rapid rates now rate is controlled well patient's in intensive care unit with multisystem disease evaluated patient with resident physician PGY 1 Dr. Maury Corey agree with the treatment plan recommendation patient will be continued on rate control strategy no need for any antiarrhythmic drug therapy at this time because of multiorgan failure especially liver disease not many medications because of A-fib and amiodarone is not a good idea for now rate control with beta-blockers IV as tolerated and patient may convert to sinus rhythm on her own. HPI Data of Consult Requesting Physician: Radha Choudhary MD Admitting Provider: Radha Choudhary MD Attending Provider: Radha Choudhary MD Primary Care Provider: Physician No Primary/Family Consult Narrative Reason for consult: New-onset A-fib History of present illness: Patient was admitted overnight. Bilateral venous Doppler of the upper extremities were taken, which was positive for occlusive thrombus in the superficial left cephalic vein. Patient was seen and evaluated at bedside. Patient is significantly jaundiced and has shaking all over her body. Patient was able to answer what her name was, but the patient could not say where she was and did not know what the date was. Patient appeared tender to palpation throughout her extremities. It was noted that the patient's bilirubin last 19.9, so direct bilirubin was added to a.m. labs, which showed direct bilirubin of 14.8. Since most of his bilirubin is conjugated, it is most likely a deficiency of the liver rather than hemolysis. Ammonia levels were ordered to further investigate possible hepatic encephalopathy, was noted to be only slightly elevated at 35. Patient to follow-up with GI, however prognosis is very guarded as the patient was noted to not be a candidate for liver transplantation by [facility] icu specialist. The patient started to go into A-fib RVR early in the afternoon, so EKG was taken and amiodarone drip was started. Cardiology consulted for new-onset A-fib with RVR. cc:: cc: Radha Choudhary MD Review of Systems Review of Systems Narrative Review of Systems: General: Denies fevers or chills HEENT: Denies congestion or sore throat Heart: Denies chest pain or palpitations Lungs: Denies shortness of breath or cough Abdomen: Endorses abdominal distension Genitourinary: Denies frequency, urgency, dysuria, hematuria Musculoskeletal: Denies joint pain, denies muscular pain Neurology: Denies numbness, tingling ROS otherwise negative except what is mentioned above. Exam Vital Signs Temp Pulse Resp BP Pulse Ox O2 Flow Rate FiO2 97 F 104 H 31 H 127/90 H 97 2 30 07/20/25 16:00 07/20/25 18:07 07/20/25 16:00 07/20/25 18:07 07/20/25 16:00 07/20/25 06:59 07/20/25 04:55 Narrative Exam General: A/O x1, icteric Eyes: PERRL, EOMI. Signficant icterus, vision grossly intact. Ears: No ear pain, no ear discharge, Hearing grossly intact. Nose: No nasal discharge. Mouth/Throat: Moist mucous membranes, no redness, no lesions. Neck: Neck supple, non-tender, no cervical lymphadenopathy. Lungs: Clear JIM to auscultation and percussion, No accessory muscle use. Cardio: Normal S1/S2, regular rhythm, no murmurs, no JVD or carotid bruits. Abdomen: Significant distension Extremities: Symmetrical, no significant deformities, no peripheral edema , non- tender, peripheral pulses present. Skin: No rashes, no lesions, warm to touch. Neuro: No focal neurological deficits. Psych: Cooperative, A&Ox1. Results Labs 07/20/25 09:40 07/20/25 16:20 Labs: Short CBC 07/20/25 07/20/25 Range/Units 03:23 09:40 WBC 7.4 (3.6-11.0) Thou/mm3 Hgb 9.7 L 10.0 L (12.0-16.0) g/dL Hct 29.5 L 30.6 L (36.0-46.0) % Plt Count 71 L D (140-440) Thou/mm3 BMP 07/20/25 07/20/25 03:23 16:20 Sodium 152 H 151 H Potassium 3.6 3.7 Chloride 112 H 113 H Carbon Dioxide 28.6 29.9 BUN 52 H 49 H Creatinine 1.2 0.5 L D Glucose 244 H 240 H Calcium 9.6 10.0 Liver Function 07/20/25 07/20/25 07/20/25 Range/Units 03:23 09:40 16:20 Total Bilirubin 19.9 H* 20.9 H* D (0.3-1.2) mg/dL Direct Bilirubin 14.8 H (0.0-0.3) mg/dL AST 149 H 135 H (0-34) U/L ALT 125 H 112 H (10-49) U/L Alkaline Phosphatase 185 H 162 H D (46-116) U/L Albumin 3.5 3.3 L (3.4-4.8) gm/dL Urine 07/20/25 Range/Units 04:40 Urine Color Yellow (Lt Yel-Yel) Urine Clarity Hazy (Clear/Hazy) Urine pH 5.0 (5.0-7.0) Ur Specific [place] 1.010 (1.001-1.035) Urine Protein Negative (Neg - Trace) Urine Glucose (UA) Negative (Negative) ABG Interpretation ABG results: 07/20/25 03:23 ABG pH 7.45 ABG pCO2 44 ABG pO2 69 L ABG HCO3 30 H ABG O2 Saturation 95 ABG Base Excess 6 H Quality Measures Quality Measures VTE prophylaxis (SCDs) Advance care planning discussed with:: other Medications Home Medications and Allergies Home Medications ?Medication ?Instructions ?Recorded ?Confirmed ?Type albuterol sulfate 90 mcg/actuation 2 puff inhalation Q 6HR PRN 04/26/16 07/06/25 History aerosol inhaler (Proventil HFA) WHEEZING #0 inhalation s sitagliptin phosphate 50 mg tablet 50 mg PO QDAY #0 ta bs 09/10/17 07/06/25 History (Januvia) alendronate 70 mg tablet 70 mg PO QWEEK 09/04/1806/27 History lactulose 10 gram/15 mL oral 30 ml PO EVERYOTHERDAY 07/06/25 History solution (Constulose) omeprazole 40 mg capsule,delayed 40 mg PO EVERYOTHERDA Y 09/04/18 07/06/25 History release montelukast 10 mg tablet 10 mg PO DAILY 02/20/1906/27 History atorvastatin 10 mg tablet 10 mg PO DAILY 12/22/2206/27 History dapagliflozin propanediol 5 mg 5 mg PO DAILY 12/22/22 07/06/25 History tablet (Farxiga) metoprolol succinate 25 mg 25 mg PO DAILY 12/22/2206/20 History tablet,extended release 24 hr tamoxifen 20 mg tablet 20 mg PO DAILY 12/22/2206/27 History budesonide-formoterol HFA 160 2 puff inhalation Q12H 1 09/05/24 07/06/25 History mcg-4.5 mcg/actuation aerosol inhaler (Breyna) calcium carbonate 200 mg calcium 1 tab PO QDAY 5 07/06/25 History (500 mg)-vitamin D3 400 unit tablet furosemide 20 mg tablet 20 mg PO .48hr 07/06/2506/27 History spironolactone 50 mg tablet 50 mg PO EVERYOTHERDAY 06/2007/06/25 History Allergies Allergy/AdvReac Type Severity Reaction Status Date / Time No Known Allergies Allergy Verified 12/21/22 22:56 Visit Medications Acetaminophen (Acetaminophen 325 Mg Tablet) 650 mg PO Q6H PRN PRN Reason: Fever >101.4 or pain 1-3 Stop: 08/19/25 02:48 Albuterol/Ipratropium (Albuterol/Ipratropium (Duoneb) Rt Talya 3 Ml Nebu) 3 ml INH Q6HRRT PRN PRN Reason: wheezing Stop: 08/19/25 06:59 Amiodarone HCl (Amiodarone Hcl 200 Mg Tablet) 400 mg PO BID PABLO Stop: 07/21/25 02:59 Last Admin: 07/20/25 09:55 Dose: Not Given Amiodarone HCl (Amiodarone Hcl 200 Mg Tablet) 200 mg PO QDAY [facility] Stop: 08/20/25 08:59 Bumetanide (Bumetanide Inj 0.25 Mg/Ml Vial 4 Ml) 1 mg IVP QDAY PABLO Stop: 08/20/25 08:59 Cholestyramine Resin (Cholestyramine/Sucrose 1 Pkt Ea) 1 pkt PO BID PABLO Stop: 08/19/25 09:59 Last Admin: 07/20/25 10:09 Dose: 1 pkt Dextrose (Dextrose 50%-Water Inj 50 Ml Syringe) 25 ml IV Q15MIN PRN PRN Reason: BG 50-70 responsive npo pt Stop: 08/19/25 02:57 Dextrose (Dextrose 50%-Water Inj 50 Ml Syringe) 50 ml IV Q15MIN PRN PRN Reason: BG <50 OR BG <70 & pt unresponsive Stop: 08/19/25 02:57 Glucagon (Glucagon Inj 1 Mg Vial) 1 mg IM Q15MIN PRN PRN Reason: BG <70, and no IV access Hydromorphone HCl (Hydromorphone Inj 2 Mg/Ml Vial) 0.25 mg IVP Q4HR PRN PRN Reason: severe pain 7-10 Stop: 07/25/25 03:07 Insulin Human Lispro (Insulin Lispro (Admelog) 1 Unit/0.01 Ml Unit) 0 unit SC Q6HR PABLO; Protocol Stop: 08/19/25 02:59 Last Admin: 07/20/25 17:59 Dose: 3 unit Insulin Human Lispro (Insulin Lispro (Admelog) 1 Unit/0.01 Ml Unit) 10 unit SC Q6HR [facility] Stop: 08/19/25 05:59 Last Admin: 07/20/25 17:59 Dose: 10 unit Insulin Human NPH (Insulin Nph 1 Unit/0.01 Ml (Per Unit)) 20 unit SC BID [facility] Stop: 08/19/25 08:59 Last Admin: 07/20/25 10:07 Dose: 20 unit Lactulose (Lactulose Syrup 20 Gm/30 Ml Udc) 20 gm PO TID [facility]; Protocol Stop: 08/19/25 05:59 Last Admin: 07/20/25 14:10 Dose: 20 gm Metoprolol Tartrate (Metoprolol Tartrate Inj 1 Mg/Ml Vial 5 Ml) 5 mg IVP Q5MIN PRN PRN Reason: Heart Rate > 130 Sustained Stop: 08/19/25 18:27 Midodrine (Midodrine 5 Mg Tablet) 5 mg PO BIDWM [facility] Stop: 08/19/25 17:29 Last Admin: 07/20/25 17:51 Dose: Not Given Ondansetron HCl (Ondansetron Inj 2 Mg/Ml Inj 2 Ml) 4 mg IVP Q6H PRN; Protocol PRN Reason: NAUSEA OR VOMITING Stop: 08/19/25 02:48 Pantoprazole Sodium (Pantoprazole Inj 40 Mg Vial) 40 mg IVP QDAY PABLO Stop: 08/19/25 08:59 Last Admin: 07/20/25 09:55 Dose: 40 mg Rifaximin (Rifaximin 550 Mg Tablet) 550 mg PO BID [facility] Stop: 07/27/25 02:59 Last Admin: 07/20/25 10:09 Dose: 550 mg Discontinued Medications Acetaminophen (Acetaminophen 325 Mg Tablet) 650 mg PO Q6H PRN PRN Reason: PAIN SCALE 1-3 (mild Stop: 08/19/25 02:48 Bumetanide (Bumetanide Inj 0.25 Mg/Ml Vial 4 Ml) 1 mg IVP BID PABLO Stop: 08/19/25 08:59 Last Admin: 07/20/25 09:56 Dose: 1 mg Digoxin (Digoxin Inj 0.25 Mg/Ml Amp 2 Ml) 0.25 mg IVP X1 ONE Stop: 07/20/25 17:58 Last Admin: 07/20/25 18:07 Dose: 0.25 mg Hydromorphone HCl (Hydromorphone Inj 2 Mg/Ml Vial) 0.2 mg IVP Q4HR PRN PRN Reason: severe pain 7-10 Stop: 07/25/25 03:07 Last Admin: 07/20/25 13:27 Dose: 0.2 mg Magnesium Sulfate/Dextrose (Magnesium Sulfate Ivpb) 1 gm in 100 mls @ 100 mls/hr IV X1 ONE Stop: 07/20/25 06:46 Last Admin: 07/20/25 05:57 Dose: 100 mls/hr Potassium Chloride (Kcl Ivpb) 20 meq in 100 mls @ 50 mls/hr IV Q2H PABLO Stop: 07/20/25 18:05 Last Admin: 07/20/25 16:25 Dose: 50 mls/hr Magnesium Sulfate (Magnesium Sulfate Ivpb) 2 gm in 50 mls @ 25 mls/hr IV X1 ONE Stop: 07/20/25 16:06 Last Admin: 07/20/25 14:29 Dose: 25 mls/hr Amiodarone HCl/Dextrose (Nexterone Ivpb) 150 mg in 100 mls @ 600 mls/hr IV .Q10M ONE Stop: 07/20/25 14:38 Last Infusion: 07/20/25 18:42 Dose: Infused Amiodarone HCl/Dextrose (Nexterone Ivpb) 360 mg in 200 mls @ 33.333 mls/hr IV .Q6H ONE Stop: 07/20/25 20:28 Last Infusion: 07/20/25 18:42 Dose: 0 mls/hr Amiodarone HCl/Dextrose (Nexterone Ivpb) 360 mg in 200 mls @ 16.667 mls/hr IV .Q12H PABLO Stop: 07/21/25 20:28 Midodrine (Midodrine 5 Mg Tablet) 10 mg PO BID PABLO Stop: 08/19/25 02:59 Last Admin: 07/20/25 10:00 Dose: Not Given Ondansetron HCl (Ondansetron Inj 2 Mg/Ml Inj 2 Ml) 4 mg IVP X1 ONE; Protocol Stop: 07/20/25 11:12 Last Admin: 07/20/25 11:17 Dose: 4 mg Assessment & Plan Plan Patient is 74-year-old F with PMH of atrial fibrillation, liver cirrhosis and liver mass, invasive ductal breast carcinoma (right) s/p mastectomy, HLD, T2DM, hemorrhoids, and osteoporosis transferred back from [place] s/p IR embolization for liver lesion and massive transfusion protocol. #A-fib Patient developed A-fib with RVR today in the afternoon confirmed by EKG, amiodarone drip started. Plan: Stop amiodarone Metorpolol tartrate 5mg Q5 PRN if HR > 130 #Acute encephalopathy secondary to #Acute liver failure secondary to #Liver mass #Elevated Total Bilirubin #Jaundice #CASTANEDA cirrhosis #Bleeding liver lesion possible hepatocellular carcinoma status post IR embolization #Coagulopathy #Acute anemia #Hemorrhagic shock (Resolved) #Occlusive thrombus superficial left cephalic vein #Acute hypoxic respiratory failure (Resolving) #Vascular congestion #History of asthma #Pain #COLE #Hypernatremia and hyperchloremia #Left abdominal bruising #History of type 2 diabetes #Left upper extremity swelling complaint for IV extravasation, stable #?Occlusive thrombus left cephalic vein per [place] #Bilateral lower extremity pain #Concern for aspiration ammonia #Concern for abdominal infection #Sepsis Per primary team This case was discussed with my attending physician, Dr. Hidalgo.. Piter Corey, PGY1
--- NOTE | 2025-07-20 19:09 | PD.IMCONS ---
HPI Data of Consult Requesting Physician: Radha Choudhary MD Primary Care Provider: Physician No Primary/Family Consult Narrative Reason for consult: Abnormal liver function test History of present illness: 74 years old female I been asked by the internal medicine team in the ICU to evaluate because of her abnormal liver function test Total bilirubin 20.9 direct bilirubin 14.8 AST ALT 135 and 112 and alk phos slightly elevated 162 She is also thrombocytopenic at 71,000 with a hemoglobin hematocrit 10.0 and 30.6 There is abdominal ultrasound today shows gallbladder sludge CBD 10 mm pancreatic head 2.8 mm liver size 16 cm and the hypoechoic 3.8 x 3.5 x 3.3 cm mass in the right lobe of the liver which you have known from the previous admission as it was bleeding in that mass which has been embolized at [place] Patient does have a history of right breast invasive ductal carcinoma and longstanding history of cirrhotic liver disease due to CASTANEDA cc:: cc: Radha Choudhary MD Review of Systems Review of Systems Systems Reviewed: All systems reviewed, normal except as documented Past Medical History Surgical History OTHER SURGICAL HX: Diabetes mellitus type 2 Essential hypertension Hyperlipidemia Invasive ductal carcinoma of the right breast on tamoxifen Mass right lobe of the liver status post embolization Meds Home Medications and Allergies Home Medications ?Medication ?Instructions ?Recorded ?Confirmed ?Type albuterol sulfate 90 mcg/actuation 2 puff inhalation Q6HR PRN 04/26/16 07/06/25 History aerosol inhaler (Proventil HFA) WHEEZING #0 inhalations sitagliptin phosphate 50 mg tablet 50 mg PO QDAY #0 tabs 09/10/17 07/06/25 History (Januvia) alendronate 70 mg tablet 70 mg PO QWEEK 09/04/18 07/06/25 History lactulose 10 gram/15 mL oral 30 ml PO EVERYOTHERDAY 09/04/18 07/06/25 History solution (Constulose) omeprazole 40 mg capsule,delayed 40 mg PO EVERYOTHERDAY 09/04/18 07/06/25 History release montelukast 10 mg tablet 10 mg PO DAILY 02/20/19 07/06/25 History atorvastatin 10 mg tablet 10 mg PO DAILY 12/22/22 07/06/25 History dapagliflozin propanediol 5 mg 5 mg PO DAILY 12/22/22 07/06/25 History tablet (Farxiga) metoprolol succinate 25 mg 25 mg PO DAILY 12/22/22 07/06/25 History tablet,extended release 24 hr tamoxifen 20 mg tablet 20 mg PO DAILY 12/22/22 07/06/25 History budesonide-formoterol HFA 160 2 puff inhalation Q12H 07/06/25 07/06/25 History mcg-4.5 mcg/actuation aerosol inhaler (Breyna) calcium carbonate 200 mg calcium 1 tab PO QDAY 07/06/25 07/06/25 History (500 mg)-vitamin D3 400 unit tablet furosemide 20 mg tablet 20 mg PO .48hr 07/06/25 07/06/25 History spironolactone 50 mg tablet 50 mg PO EVERYOTHERDAY 07/06/25 07/06/25 History Allergies Allergy/AdvReac Type Severity Reaction Status Date / Time No Known Allergies Allergy Verified 12/21/22 22:56 Exam Vital Signs Temp Pulse Resp BP Pulse Ox O2 Flow Rate FiO2 97 F 104 H 31 H 127/90 H 97 2 30 07/20/25 16:00 07/20/25 18:07 07/20/25 16:00 07/20/25 18:07 07/20/25 16:00 07/20/25 06:59 07/20/25 04:55 Constitutional Comments: Icteric sclera and yellowish discoloration of the skin Routine Respiratory Exam Comments: Normal to auscultation Routine Abdominal Exam Comments: Soft nontender Results Labs 07/20/25 09:40 07/20/25 16:20 Labs: Short CBC 07/20/25 07/20/25 Range/Units 03:23 09:40 WBC 7.4 (3.6-11.0) Thou/mm3 Hgb 9.7 L 10.0 L (12.0-16.0) g/dL Hct 29.5 L 30.6 L (36.0-46.0) % Plt Count 71 L D (140-440) Thou/mm3 BMP 07/20/25 07/20/25 03:23 16:20 Sodium 152 H 151 H Potassium 3.6 3.7 Chloride 112 H 113 H Carbon Dioxide 28.6 29.9 BUN 52 H 49 H Creatinine 1.2 0.5 L D Glucose 244 H 240 H Calcium 9.6 10.0 Liver Function 07/20/25 07/20/25 07/20/25 Range/Units 03:23 09:40 16:20 Total Bilirubin 19.9 H* 20.9 H* D (0.3-1.2) mg/dL Direct Bilirubin 14.8 H (0.0-0.3) mg/dL AST 149 H 135 H (0-34) U/L ALT 125 H 112 H (10-49) U/L Alkaline Phosphatase 185 H 162 H D (46-116) U/L Albumin 3.5 3.3 L (3.4-4.8) gm/dL Urine 07/20/25 Range/Units 04:40 Urine Color Yellow (Lt Yel-Yel) Urine Clarity Hazy (Clear/Hazy) Urine pH 5.0 (5.0-7.0) Ur Specific [place] 1.010 (1.001-1.035) Urine Protein Negative (Neg - Trace) Urine Glucose (UA) Negative (Negative) ABG Interpretation ABG results: 07/20/25 03:23 ABG pH 7.45 ABG pCO2 44 ABG pO2 69 L ABG HCO3 30 H ABG O2 Saturation 95 ABG Base Excess 6 H Assessment and Plan Additional Assessment & Plan Additional Plan: # Abnormal liver function tests most likely due to cirrhotic liver disease worsening cholestasis and thrombocytopenia CBD 10 mm on abdominal ultrasound imaging It would be prudent to get an MRCP to make sure there is no obstruction of stricture of the distal CBD although there is no intrahepatic biliary ductal dilatation Plan MRCP follow liver function tests patient not a candidate for liver transplant If the MRCP shows clear obstruction Stenting of the CBD might be helpful I also had a long discussion with the 2 sons and the family members and nephew nieces And told them that prognosis is extremely poor this start thinking of comfort care hospice care But that decision will be made after the MRCP results are known Thank you very much for the opportunity to participate in the care of this patient
[2025-07-21] VITALS (29 sets, daily range): BP systolic 134–149; BP diastolic 65–82; PULSE 110–119; RESP 15–40; TEMP 36.6–37; O2SAT 84–98; BMI 35.4
[2025-07-21] MEDS: INSULIN LISPRO (AdmeLOG) 1 UNIT/0.01 ML UNIT SC ×2 (00:50→18:06)
[2025-07-21] MEDS: INSULIN LISPRO (AdmeLOG) 1 UNIT/0.01 ML UNIT 10 UNIT SC ×2 (00:51→18:07)
[2025-07-21 06:09] LABS: Basophils # (Auto) 0.1 Thou/mm3 (0.0-0.2); Basophils % (Auto) 1 % (0-2.5); Eosinophils # (Auto) 0.3 Thou/mm3 (0.0-0.5); Eosinophils % (Auto) 4 % (0-10); Hematocrit 31.9 % (36.0-46.0); Hemoglobin 10.5 g/dL (12.0-16.0); Immature Granulocytes Auto 0.12 Thou/mm3 (0.00-0.00); Lymphocytes # (Auto) 0.7 Thou/mm3 (1.0-4.8); Lymphocytes % (Auto) 9 % (10-50); Mean Corpuscular HGB Conc 32.9 g/dl (31.0-37.0); Mean Corpuscular Hemoglobin 30.7 pg (25.0-35.0); Mean Corpuscular Volume 93 fL (80-100); Monocytes # (Auto) 0.9 Thou/mm3 (0.0-0.8); Monocytes % (Auto) 13 % (0-12); Neutrophils # (Auto) 5.2 Thou/mm3 (1.8-7.7); Neutrophils % (Auto) 71 % (37-80); Nucleated Red Blood Cell # 0.02 Thou/mm3 (0.00-0.00); Nucleated Red Blood Cell % 0 /100 WBC (0); Platelet Count 81 Thou/mm3 (140-440); RDW Standard Deviation 57.0 fL (36.4-46.3); Red Blood Count 3.42 Miln/mm3 (4.00-5.20); White Blood Count 7.3 Thou/mm3 (3.6-11.0)
[2025-07-21 06:39] LABS: INR 1.7 (0.9-1.3); Partial Thromboplastin Time 36.4 Seconds (22.0-36.0); Prothrombin Time 17.0 Seconds (9.0-12.2)
[2025-07-21 06:54] LABS: Alanine Aminotransferase 105 U/L (10-49); Albumin, Serum 3.4 gm/dL (3.4-4.8); Albumin/Globulin Ratio 1.1 (1.2-2.2); Alkaline Phosphatase 177 U/L (46-116); Anion Gap 10 (7-16); Aspartate Amino Transferase 121 U/L (0-34); BUN/Creatinine Ratio 41 Ratio (12-20); Blood Urea Nitrogen 37 mg/dL (9-23); Calcium 10.0 mg/dL (8.3-10.6); Calcium (Corrected) 10.5 mg/dL (8.5-10.1); Carbon Dioxide 28.7 mMol/L (20.0-31.0); Chloride 114 mMol/L (98-107); Creatinine (Component) 0.9 mg/dL (0.6-1.3); Estimated Creatinine Clearance 50.0 mL/min (>60); Globulin 3.0 gm/dL (2.3-3.5); Glucose 163 mg/dL (74-106); Magnesium 1.9 mg/dL (1.6-2.6); Osmolality,Calculated 316 (275-295); Phosphorous 2.6 mg/dL (2.4-5.1); Potassium 3.4 mMol/L (3.4-5.1); Sodium 153 mMol/L (136-145); Total Protein 6.4 gm/dL (5.7-8.2); eGFR > 60 See Note
[2025-07-21 07:14] LABS: Bilirubin,Total 22.7 mg/dL (0.3-1.2)
[2025-07-21 08:35] LABS: AFP Non-Pregnant 12.50 ng/mL (<8.10)
[2025-07-21] MEDS: Magnesium Sulfate 2 GM Ivpb 2 GM/50 ML BAG IV (09:58)
--- NOTE | 2025-07-21 10:45 | ESPR_ITS ---
<Statement entered by Kat Hargrove MD - 07/21/25 16:04> Pt is seen at bedside with family at bedside. Pt is confused and very short of breath. TAnabel arellano continues to uptrend. MRCP was unsuccessful because pt was unable to tolerate laying flat due to orthopnea. Pt is foun to have hypernatremia, with free water deficit of 2L. Will order free water flushes at 160ml Q2H and repeat CMP later in the evening. Will reattempt MRCP tomorrow and will hold goals of care discussion. Per cardio recommendation will start sotalol for afib with RVR. Patient was seen and examined by me personally. I have directly supervised and reviewed documentation by the team resident and agree with its findings. ------- Plan of care was discussed with the attending, Dr. Martina Hargrove, PGY-2 Documentation for date of: 07/21/25 Subjective Subjective Interval history: * Patient seen and examined at beside. * GI plans for MRCP today. * T Bili increased to 22.7. * Patient hypernatremic, holding Bumex, free water flushes 160 mL every 2 hours. * Stopped midodrine - BP Stage 2 HTN. Exam Vital Signs Temp Pulse Resp BP Pulse Ox O2 Del Method O2 Flow Rate 98.4 F 118 H 23 H 147/82 H 93 L Room Air 2 07/21/25 08:00 07/21/25 08:36 07/21/25 08:00 07/21/25 08:36 07/21/25 08:00 07/21/25 08:00 07/21/25 02:27 FiO2 85 07/20/25 22:51 Narrative Exam General: Jaundiced. Nasal feeding tube in place. Ill-appearing woman. Neurologic: GCS 15. Alert and oriented x1, no gross neurological deficit, and patient able to move all 4 extremities. HEENT: Scleral icterus. Normocephalic, atraumatic. Pupils reactive to light. Heart: Tachycardic, regular rhythm. Lungs: Clear to auscultation bilaterally with no wheezing or crackles. Abdomen: Distended, ascites, apparent tinea infections bilaterally at the hips. Extremities: 1+ pitting edema in the lower extremities bilaterally. 2+ radial and dorsalis pedis pulses bilaterally. Skin: Jaundiced. Objective Labs 07/21/25 05:54 07/21/25 14:01 Labs: Laboratory Results - last 24 hr 07/20/25 07/20/25 07/21/25 03:23 16:20 05:54 WBC 7.3 RBC 3.42 L Hgb 10.5 L Hct 31.9 L MCV 93 MCH 30.7 MCHC 32.9 RDW Std Deviation 57.0 H Plt Count 81 L Neut % (Auto) 71 Lymph % (Auto) 9 L [place] % (Auto) 13 H Eos % (Auto) 4 Baso % (Auto) 1 Neut # (Auto) 5.2 Lymph # (Auto) 0.7 L [place] # (Auto) 0.9 H Eos # (Auto) 0.3 Baso # (Auto) 0.1 Immature Gran # (Auto) 0.12 H Absolute Nucleated RBC 0.02 H Immature Gran % 2 H Nucleated RBC % 0 PT 17.0 H INR 1.7 H APTT 36.4 H Sodium 151 H 153 H Potassium 3.7 3.4 Chloride 113 H 114 H Carbon Dioxide 29.9 28.7 Anion Gap 8 10 BUN 49 H 37 H Creatinine 0.5 L D 0.9 Estim Creat Clear Calc 90.0 50.0 L eGFR > 60 > 60 BUN/Creatinine Ratio 98 H 41 H Glucose 240 H 163 H D Calculated Osmolality 320 H 316 H Calcium 10.0 10.0 Corrected Calcium 10.6 H 10.5 H Phosphorus 2.6 Magnesium 1.9 Total Bilirubin 20.9 H* D 22.7 H* D AST 135 H 121 H ALT 112 H 105 H Alkaline Phosphatase 162 H D 177 H Total Protein 6.2 6.4 Albumin 3.3 L 3.4 Globulin 2.9 3.0 Albumin/Globulin Ratio 1.1 L 1.1 L Tumor Marker AFP 12.50 H ABG Interpretation ABG results: 07/20/25 03:23 ABG pH 7.45 ABG pCO2 44 ABG pO2 69 L ABG HCO3 30 H ABG O2 Saturation 95 ABG Base Excess 6 H Quality Measures Quality Measures VTE prophylaxis (SCDs) Advance care planning discussed with:: patient Assessment & Plan Assessment Current Active Medications: Generic Name Dose Route Start Last Admin Trade Name Freq PRN Reason Stop Dose Admin Acetaminophen 650 mg 07/20/25 02:49 Acetaminophen 325 Mg Tablet PO 08/19/25 02:48 Q6H PRN Fever >101.4 or pain 1-3 Albuterol/Ipratropium 3 ml 07/20/25 03:01 Albuterol/Ipratropium (Duoneb) Rt Talya 3 Ml Nebu INH 08/19/25 06:59 Q6HRRT PRN wheezing Bumetanide 1 mg 07/21/25 09:00 07/21/25 08:36 Bumetanide Inj 0.25 Mg/Ml Vial 4 Ml IVP 08/20/25 08:59 1 mg On Hold: 07/21/25 09:00 QDAY PABLO Administration Cholestyramine Resin 1 pkt 07/20/25 10:00 07/20/25 21:25 Cholestyramine/Sucrose 1 Pkt Ea PO 08/19/25 09:59 1 pkt BID PABLO Administration Dextrose 25 ml 07/20/25 02:58 Dextrose 50%-Water Inj 50 Ml Syringe IV 08/19/25 02:57 Q15MIN PRN BG 50-70 responsive npo pt Dextrose 50 ml 07/20/25 02:58 Dextrose 50%-Water Inj 50 Ml Syringe IV 08/19/25 02:57 Q15MIN PRN BG <50 OR BG <70 & pt unresponsive Glucagon 1 mg 07/20/25 02:58 Glucagon Inj 1 Mg Vial IM Q15MIN PRN BG <70, and no IV access Hydromorphone HCl 0.25 mg 07/20/25 16:04 Hydromorphone Inj 2 Mg/Ml Vial IVP 07/25/25 03:07 Q4HR PRN severe pain 7-10 Potassium Chloride 10 meq in 100 mls @ 100 mls/hr 07/21/25 08:33 Kcl Ivpb IV 07/21/25 12:32 Q1H [facility] Insulin Human Lispro 0 unit 07/20/25 03:00 07/21/25 05:31 Insulin Lispro (Admelog) 1 Unit/0.01 Ml Unit SC 08/19/25 02:59 Not Given Q6HR [facility] Protocol Insulin Human Lispro 10 unit 07/20/25 06:00 07/21/25 05:31 Insulin Lispro (Admelog) 1 Unit/0.01 Ml Unit SC 08/19/25 05:59 Not Given Q6HR [facility] Insulin Human NPH 20 unit 07/20/25 09:00 07/20/25 21:25 Insulin Nph 1 Unit/0.01 Ml (Per Unit) SC 08/19/25 08:59 20 unit BID PABLO Administration Lactulose 20 gm 07/20/25 06:00 07/21/25 05:18 Lactulose Syrup 20 Gm/30 Ml Udc PO 08/19/25 05:59 Not Given TID PABLO Protocol Metoprolol Tartrate 5 mg 07/20/25 18:28 Metoprolol Tartrate Inj 1 Mg/Ml Vial 5 Ml IVP 08/19/25 18:27 Q5MIN PRN Heart Rate > 130 Sustained Midodrine 5 mg 07/20/25 17:30 07/20/25 17:51 Midodrine 5 Mg Tablet PO 08/19/25 17:29 Not Given BIDWM PABLO Ondansetron HCl 4 mg 07/20/25 02:49 Ondansetron Inj 2 Mg/Ml Inj 2 Ml IVP 08/19/25 02:48 Q6H PRN NAUSEA OR VOMITING Protocol Pantoprazole Sodium 40 mg 07/20/25 09:00 07/21/25 08:38 Pantoprazole Inj 40 Mg Vial IVP 08/19/25 08:59 40 mg QDAY PABLO Administration Rifaximin 550 mg 07/20/25 03:00 07/20/25 21:25 Rifaximin 550 Mg Tablet PO 07/27/25 02:59 550 mg BID PABLO Administration Plan Summary: [facility] course: The patient is a 74-year-old female with a history of atrial fibrillation, liver cirrhosis, invasive ductal breast carcinoma (right) s/p mastectomy, HLD, T2DM, hemorrhoids, and osteoporosis was admitted to [facility] on 07/05/2025 for management of septic and hemorrhagic shock with hypothermia requiring pressors and massive transfusion protocol plus Dario hugger respectively. FOBT was positive however given patient's history of hemorrhoids another source of bleeding was suspected due to increasing size of her abdomen and large pulse pressure. Ultrasound of the abdomen showed fluid that was sufficient for paracentesis. Prior to paracentesis, patient became unstable requiring intubation for stabilization and CTA abdomen was performed which showed suspected abdominal bleed with liver lesion. It was found that patient had 5.6 x 5.5 cm enhancing right lower lobe liver lesion with extravasation of the contrast into the hemorrhage being located at the liver and surgeon was consulted and it was recommended that patient will need higher care facility for embolization. Patient was closely monitored for transfusion protocol and was transferred to [place] in stable condition. She was transferred to [place] for IR embolization for massive bleeding from liver lesion on 07/06. [place] [facility] course: Initially, patient remained stable and [place] surgeon did not recommend surgical resection of liver lesion due to concern of massive bleeding. On 07/10, they performed paracentesis followed by extubation on 07/11. She was downgraded to medical floors. On 07/13 she went into A-fib RVR after short run of NSVT received multiple boluses of metoprolol and 150 mg amnio which converted her back to sinus rhythm with soft blood pressure and was re-upgraded to ICU and was started on Levophed. On 07/15, A-fib RVR with hypotension and acute hemoglobin drop with elevated lactic acid. She was managed with pressors and massive transfusion protocol in ICU and IR embolization was performed and bruise was found in the left side of the abdomen. On 07/18: Overnight patient's tachycardia self resolved. She was kept on pressors for MAP above 75 for HRS. Urine output started decreasing. She was following commands better in the afternoon. On 07/19: Patient's heart rate was 90s?110s. She was mostly sinus rhythm. MAP goal was 75 with Levophed and vasopressin. CVP was at 6-18, BiPAP, net -1 L with 4 mg IV Bumex x twice daily and Diuril x 3. Diuresis based on CVP and urine output with goal of net -1 L. Insulin drip which was transitioned to subcu insulin. She was transfered back to [facility] ICU off pressors on 07/20/2025 at 3 AM for continuation of care. Per the ICU team on receiving the patient back from [place], the night team did notice upper extremity swelling, so bilateral venous Doppler of the upper extremities were taken, which was positive for occlusive thrombus in the superficial left cephalic vein. Patient was seen and evaluated at bedside. Overall condition is noted to be worse compared to when the patient was first admitted. While the patient is off of the ventilator and pressors, the patient is significantly jaundiced and noticeably has shaking all over her body. Patient was able to answer what her name was, but the patient could not say where she was and did not know what the date was. Patient appeared tender to palpation throughout her extremities. It was noted that the patient's bilirubin last 19.9, so direct bilirubin was added to a.m. labs, which showed direct bilirubin of 14.8. Since most of his bilirubin is conjugated, it is most likely a deficiency of the liver rather than hemolysis. Ammonia levels were ordered to further investigate possible hepatic encephalopathy, was noted to be only slightly elevated at 35. Patient to follow-up with GI, however prognosis is very guarded as the patient was noted to not be a candidate for liver transplantation by [facility] parts classifier. The patient was downgraded to the floor team on 07/16/2025. #A-fib * Patient's rate improved into the 120s, no longer appears irregular Plan: * Metoprolol 5 mg IV push as needed for heart rate sustained over 130 * Cardiology consulted * Patient's family does not request cardioversion #Acute encephalopathy secondary to #Acute liver failure secondary to #Liver mass #Elevated Total Bilirubin #Jaundice #CASTANEDA cirrhosis #Bleeding liver lesion possible hepatocellular carcinoma status post IR embolization #Coagulopathy * Total bilirubin above 20, direct bilirubin around 14. This may reinforce an obstructive etiology likely secondary to the mass. * CT abdomen pelvis on 07/05/2025 showed a 5.6 x 5.5 cm enhancing mass in the lower right lobe of the liver with possible active bleeding. * Patient had hemorrhagic shock secondary to arterial bleed from possible HCC. * Patient is not a transplant candidate per [place]. * IR recommend outpatient TASE. * Child-Bundy score 12 = class III * MELD Score 24 = 19.6% estimated 3-month mortality Plan: * Cholestyramine twice daily * Continue with rifaximin 550 mg twice daily * Lactulose 20 g 3 times daily goal> 1 L stool output * Monitor LFTs and hemoglobin * Transfuse if hemoglobin drop below 7 * Patient is not on chemical prophylaxis for DVT due to left flank bruising and occlusive thrombus * GI plans for MRCP, if clear obstruction then CBD stenting may be helpful #Hypernatremia and hyperchloremia * Sodium 153, chloride 114 likely related to diuresis and acute blood loss * Free water deficit 2 L Plan: * Free water flushes 160 mL every 2 hours for the next 24 hours #Acute anemia secondary to #Hemorrhagic shock (Resolved) * Patient was in hemorrhagic shock requiring 7 units of PRBCs at [facility], 2 units of FFP. Another massive transfusion protocol was activated at [place]. * Patient is status post IR guided embolization on 07/15/2025 at [place] * Hemoglobin hematocrit stable Plan: * Stopped midodrine, BP Stage 2 hypertension and patient receiving water flushes with no diuretics #Occlusive thrombus superficial left cephalic vein * Results of venous Doppler 07/16/2025 * Patient unable to tolerate anticoagulation due to recent bleed Plan: * No active intervention at this time #Hyperlipidemia Plan: * Holding home statin #Acute hypoxic respiratory failure (Resolving) #Vascular congestion * Chest x-ray showed prominent vascular congestion and edema, possible superimposed pneumonia in both lungs. * Echocardiogram showed no sign of diastolic dysfunction Plan: * Holding Bumex due to hyponatremia * Oxygen as needed * BiPAP at night #History of asthma Plan: * DuoNebs Q6 hourly as needed #Tube feeds * Patient failed swallow screen at [place]. On 07/17. Plan: * Tube feeds to goal patient was on Isolyte at [place]. * Dietitian consulted * Speech-language evaluation and refer to speech therapist #History of right invasive Ductal breast cancer s/p mastectomy Plan: * No direct intervention at this time #Thrombocytopenia due to liver cirrhosis * Hemoglobin stable platelet count 81 Plan: * Monitor platelets with daily labs #History of type 2 diabetes * Poor liver function was on insulin drip 07/18 was transition to subcutaneous Plan: * NPH 20 units twice daily * Lispro 10 units every 6 hourly * Insulin sliding scale with hypoglycemia protocol #Concern for aspiration ammonia #Concern for abdominal infection #Sepsis (Resolved) * Patient received vancomycin + Zosyn [07/07 - 07/09], [07/14?07/16] along with Flagyl [07/09 - 07/13] * No active antibiotics Plan: * Blood cultures negative after 24 hours Hospital Maintenance: DVT prophylaxis: SCDs GI prophylaxis: Protonix Diet: Tube feeds Núñez: PLACED Lines: Peripherals CODE STATUS: DNR/DNI Disposition: Patient was transferred back from [place] s/p IR embolization for liver lesion possible HCC. Patient downgraded from ICU to floors on 07/20/2025. Metoprolol 5 mg IV pushes as needed for heart rate sustained over 130, heart rate has improved. Stopped amiodarone. GI plans for MRCP. Patient is hypernatremic, free water flushes 160 cc every 2 hours. Stopped diuretics. Stopped midodrine. Patient was seen and discussed with my attending physician Dr. Martina DELGADILLO and my senior resident Dr. Delvin DELGADILLO PGY-2. Luis Rodríguez DO PGY-1. Attending Provider Attestation/Addendum I have seen and examined the patient. I was physically present for the blair portions of the services provided including history, physical exam, diagnosis, treatment plans and orders. I agree with assessment and plan of care as documented by residents. Patient seen and examined at bedside. She is confused and unable to answer questions and follow command appropriately. Patient was planned for MRCP but was unable to lay flat due to orthopnea. Noted to be hypernatremic, sodium level of 153 this morning, free water deficit of 2 L, started on free water flushes at 160 cc every 2 hours. Changed as needed metoprolol to sotalol for A- fib, cardiology following closely, appreciate recommendations. Continues to be on cholestyramine, rifaximin and lactulose, has bilateral crackles and pedal edema, we will start Bumex. Patient has occlusive thrombus of superficial left cephalic vein, also needs to be on anticoagulation for A-fib but I do not feel any Even though this this note was carefully revised there may still be minor errors in advertising internship due to voice recognition software. Mario Mack MD
[2025-07-21] MEDS: POTASSIUM CHL 10 mEq IVPB 10 MEQ/100 ML BAG 100 MEQ IV ×4 (12:38→15:56)
[2025-07-21] MEDS: CHOLESTYRAMINE/SUCROSE 1 PKT EA PO ×2 (13:23→21:04)
[2025-07-21] MEDS: POTASSIUM CHLORIDE 10% 20 MEQ/15 ML UDC NG (13:23)
--- NOTE | 2025-07-21 13:40 | ESPR_ITS ---
<Statement entered by Reji Hidalgo MD - 07/23/25 15:44> The patient personally examined by me evaluated appears to be clinically stable cardiac deluca rates controlled well she might have been converted normal sinus rhythm at times. 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 Maury Corey agree with the treatment plan recommendation as documented. Prognosis poor condition is stable but critical. Documentation for date of: 07/21/25 Subjective Subjective Interval history: Patient seen and examined at bedside today; was taken for MRCP, but per family and nursing felt short of breath, and therefore procedure was not completed. More alert per family. Exam Vital Signs Temp Pulse Resp BP Pulse Ox O2 Del Method O2 Flow Rate 98.4 F 117 H 25 H 149/65 H 94 L Room Air 2 07/21/25 12:00 07/21/25 12:26 07/21/25 12:00 07/21/25 12:00 07/21/25 12:00 07/21/25 12:00 07/21/25 10:47 FiO2 85 07/20/25 22:51 Narrative Exam General: A/O x1, icteric Eyes: PERRL, EOMI. Signficant icterus, vision grossly intact. Ears: No ear pain, no ear discharge, Hearing grossly intact. Nose: No nasal discharge. Mouth/Throat: Moist mucous membranes, no redness, no lesions. Neck: Neck supple, non-tender, no cervical lymphadenopathy. Lungs: Clear JIM to auscultation and percussion, No accessory muscle use. Cardio: Normal S1/S2, regular rhythm, no murmurs, no JVD or carotid bruits. Abdomen: Significant distension Extremities: Symmetrical, no significant deformities, no peripheral edema , non- tender, peripheral pulses present. Skin: No rashes, no lesions, warm to touch. Neuro: No focal neurological deficits. Psych: Cooperative, A&Ox1. Objective Labs 07/21/25 05:54 07/21/25 05:54 Labs: Laboratory Results - last 24 hr 07/20/25 07/20/25 07/21/25 03:23 16:20 05:54 WBC 7.3 RBC 3.42 L Hgb 10.5 L Hct 31.9 L MCV 93 MCH 30.7 MCHC 32.9 RDW Std Deviation 57.0 H Plt Count 81 L Neut % (Auto) 71 Lymph % (Auto) 9 L [place] % (Auto) 13 H Eos % (Auto) 4 Baso % (Auto) 1 Neut # (Auto) 5.2 Lymph # (Auto) 0.7 L [place] # (Auto) 0.9 H Eos # (Auto) 0.3 Baso # (Auto) 0.1 Immature Gran # (Auto) 0.12 H Absolute Nucleated RBC 0.02 H Immature Gran % 2 H Nucleated RBC % 0 PT 17.0 H INR 1.7 H APTT 36.4 H Sodium 151 H 153 H Potassium 3.7 3.4 Chloride 113 H 114 H Carbon Dioxide 29.9 28.7 Anion Gap 8 10 BUN 49 H 37 H Creatinine 0.5 L D 0.9 Estim Creat Clear Calc 90.0 50.0 L eGFR > 60 > 60 BUN/Creatinine Ratio 98 H 41 H Glucose 240 H 163 H D Calculated Osmolality 320 H 316 H Calcium 10.0 10.0 Corrected Calcium 10.6 H 10.5 H Phosphorus 2.6 Magnesium 1.9 Total Bilirubin 20.9 H* D 22.7 H* D AST 135 H 121 H ALT 112 H 105 H Alkaline Phosphatase 162 H D 177 H Total Protein 6.2 6.4 Albumin 3.3 L 3.4 Globulin 2.9 3.0 Albumin/Globulin Ratio 1.1 L 1.1 L Tumor Marker AFP 12.50 H ABG Interpretation ABG results: 07/20/25 03:23 ABG pH 7.45 ABG pCO2 44 ABG pO2 69 L ABG HCO3 30 H ABG O2 Saturation 95 ABG Base Excess 6 H Quality Measures Quality Measures VTE prophylaxis (SCDs) Advance care planning discussed with:: other Assessment & Plan Assessment Current Active Medications: Generic Name Dose Route Start Last Admin Trade Name Freq PRN Reason Stop Dose Admin Acetaminophen 650 mg 07/20/25 02:49 Acetaminophen 325 Mg Tablet PO 08/19/25 02:48 Q6H PRN Fever >101.4 or pain 1-3 Albuterol/Ipratropium 3 ml 07/20/25 03:01 Albuterol/Ipratropium (Duoneb) Rt Talya 3 Ml Nebu INH 08/19/25 06:59 Q6HRRT PRN wheezing Bumetanide 1 mg 07/21/25 09:00 07/21/25 08:36 Bumetanide Inj 0.25 Mg/Ml Vial 4 Ml IVP 08/20/25 08:59 1 mg On Hold: 07/21/25 09:00 QDAY PABLO Administration Cholestyramine Resin 1 pkt 07/20/25 10:00 07/21/25 13:23 Cholestyramine/Sucrose 1 Pkt Ea PO 08/19/25 09:59 1 pkt BID PABLO Administration Dextrose 25 ml 07/20/25 02:58 Dextrose 50%-Water Inj 50 Ml Syringe IV 08/19/25 02:57 Q15MIN PRN BG 50-70 responsive npo pt Dextrose 50 ml 07/20/25 02:58 Dextrose 50%-Water Inj 50 Ml Syringe IV 08/19/25 02:57 Q15MIN PRN BG <50 OR BG <70 & pt unresponsive Glucagon 1 mg 07/20/25 02:58 Glucagon Inj 1 Mg Vial IM Q15MIN PRN BG <70, and no IV access Hydromorphone HCl 0.25 mg 07/20/25 16:04 Hydromorphone Inj 2 Mg/Ml Vial IVP 07/25/25 03:07 Q4HR PRN severe pain 7-10 Insulin Human Lispro 0 unit 07/20/25 03:00 07/21/25 05:31 Insulin Lispro (Admelog) 1 Unit/0.01 Ml Unit SC 08/19/25 02:59 Not Given Q6HR [facility] Protocol Insulin Human Lispro 10 unit 07/20/25 06:00 07/21/25 05:31 Insulin Lispro (Admelog) 1 Unit/0.01 Ml Unit SC 08/19/25 05:59 Not Given Q6HR [facility] Insulin Human NPH 20 unit 07/20/25 09:00 07/21/25 13:24 Insulin Nph 1 Unit/0.01 Ml (Per Unit) SC 08/19/25 08:59 Not Given BID PABLO Lactulose 20 gm 07/21/25 14:00 Lactulose Syrup 20 Gm/30 Ml Udc NG 08/20/25 13:59 TID [facility] Protocol Metoprolol Tartrate 5 mg 07/20/25 18:28 Metoprolol Tartrate Inj 1 Mg/Ml Vial 5 Ml IVP 08/19/25 18:27 Q5MIN PRN Heart Rate > 130 Sustained Ondansetron HCl 4 mg 07/20/25 02:49 Ondansetron Inj 2 Mg/Ml Inj 2 Ml IVP 08/19/25 02:48 Q6H PRN NAUSEA OR VOMITING Protocol Pantoprazole Sodium 40 mg 07/20/25 09:00 07/21/25 08:38 Pantoprazole Inj 40 Mg Vial IVP 08/19/25 08:59 40 mg QDAY PABLO Administration Rifaximin 550 mg 07/20/25 03:00 07/21/25 13:23 Rifaximin 550 Mg Tablet PO 07/27/25 02:59 550 mg BID PABLO Administration Plan Patient is 74-year-old F with PMH of atrial fibrillation, liver cirrhosis and liver mass, invasive ductal breast carcinoma (right) s/p mastectomy, HLD, T2DM, hemorrhoids, and osteoporosis transferred back from [place] s/p IR embolization for liver lesion and massive transfusion protocol. #A-fib Patient developed A-fib with RVR yesterday afternoon confirmed by EKG, amiodarone drip started. Plan: dc metoprolol tartrate 5mg Q5 PRN if HR > 130 Sotalol 80 bid #Acute encephalopathy secondary to #Acute liver failure secondary to #Liver mass #Elevated Total Bilirubin #Jaundice #CASTANEDA cirrhosis #Bleeding liver lesion possible hepatocellular carcinoma status post IR embolization #Coagulopathy #Acute anemia #Hemorrhagic shock (Resolved) #Occlusive thrombus superficial left cephalic vein #Acute hypoxic respiratory failure (Resolving) #Vascular congestion #History of asthma #Pain #COLE #Hypernatremia and hyperchloremia #Left abdominal bruising #History of type 2 diabetes #Left upper extremity swelling complaint for IV extravasation, stable #?Occlusive thrombus left cephalic vein per [place] #Bilateral lower extremity pain #Concern for aspiration ammonia #Concern for abdominal infection #Sepsis Per primary team This case was discussed with my attending physician, Dr. Hidalgo.. Piter Corey, PGY1
[2025-07-21 14:51] LABS: Albumin, Serum 3.2 gm/dL (3.4-4.8); Anion Gap 12 (7-16); BUN/Creatinine Ratio 88 Ratio (12-20); Blood Urea Nitrogen 53 mg/dL (9-23); Calcium 8.9 mg/dL (8.3-10.6); Calcium (Corrected) 9.5 mg/dL (8.5-10.1); Carbon Dioxide 27.0 mMol/L (20.0-31.0); Chloride 116 mMol/L (98-107); Creatinine (Component) 0.6 mg/dL (0.6-1.3); Estimated Creatinine Clearance 75.0 mL/min (>60); Glucose 162 mg/dL (74-106); Osmolality,Calculated 325 (275-295); Phosphorous 2.7 mg/dL (2.4-5.1); Potassium 4.4 mMol/L (3.4-5.1); Sodium 155 mMol/L (136-145); eGFR > 60 See Note
[2025-07-21] MEDS: LACTULOSE SYRUP 20 GM/30 ML UDC NG ×2 (15:24→21:04)
--- NOTE | 2025-07-21 15:59 | PC.SS ---
SS reviewed patient's information. Patient is altered. SS spoke to patient's son, Jacinto. Jacinto states he's the main point of contact and he and his brother assist in medical decision making for patient. Patient resides with her sons. Admitted for acute blood loss anemia. Patient is independent with ADL's. Patient was recently a transfer back from [place]. Son states prior to these hospitalizations patient was independent and did not use any DME. Notes indicate that patient failed swallow eval. Patient has hx: breast carcinoma. Patient follows at [facility] with Dr. Singh. Patient follows with Dr. Dyer. Patient PCP: Dr. Barros. Pharmacy: [facility]. Patient is pending a MRCP today. Alt medical decision maker: SonJacinto,
[2025-07-21] MEDS: DEXTROSE 5%-WATER 1,000 ML 50 ML IV (17:07)
[2025-07-21] MEDS: BUMETANIDE 0.5 MG TABLET 1 MG NG (17:10)
--- NOTE | 2025-07-21 18:30 | PD.IMPROG ---
Documentation for date of: 07/21/25 Subjective Subjective Interval history: Bilirubin up to 22.2 MRCP could not be done as patient could not lay flat because of shortness of breath Once patient's respiratory status improves maybe we can have a repeat attempt at the MRCP Either way the prognosis is very poor Exam Vital Signs Temp Pulse Resp BP Pulse Ox O2 Del Method O2 Flow Rate 98.6 F 113 H 25 H 134/80 H 91 L Nasal Cannula 2 07/21/25 16:00 07/21/25 17:10 07/21/25 16:00 07/21/25 17:10 07/21/25 16:00 07/21/25 16:00 07/21/25 16:00 FiO2 85 07/20/25 22:51 Objective Labs 07/21/25 05:54 07/21/25 14:01 Labs: Laboratory Results - last 24 hr 07/20/25 07/21/25 07/21/25 03:23 05:54 14:01 WBC 7.3 RBC 3.42 L Hgb 10.5 L Hct 31.9 L MCV 93 MCH 30.7 MCHC 32.9 RDW Std Deviation 57.0 H Plt Count 81 L Neut % (Auto) 71 Lymph % (Auto) 9 L Hitchcock % (Auto) 13 H Eos % (Auto) 4 Baso % (Auto) 1 Neut # (Auto) 5.2 Lymph # (Auto) 0.7 L Hitchcock # (Auto) 0.9 H Eos # (Auto) 0.3 Baso # (Auto) 0.1 Immature Gran # (Auto) 0.12 H Absolute Nucleated RBC 0.02 H Immature Gran % 2 H Nucleated RBC % 0 PT 17.0 H INR 1.7 H APTT 36.4 H Sodium 153 H 155 H Potassium 3.4 4.4 D Chloride 114 H 116 H Carbon Dioxide 28.7 27.0 Anion Gap 10 12 BUN 37 H 53 H Creatinine 0.9 0.6 Estim Creat Clear Calc 50.0 L 75.0 eGFR > 60 > 60 BUN/Creatinine Ratio 41 H 88 H Glucose 163 H D 162 H Calculated Osmolality 316 H 325 H Calcium 10.0 8.9 Corrected Calcium 10.5 H 9.5 Phosphorus 2.6 2.7 Magnesium 1.9 Total Bilirubin 22.7 H* D AST 121 H ALT 105 H Alkaline Phosphatase 177 H Total Protein 6.4 Albumin 3.4 3.2 L Globulin 3.0 Albumin/Globulin Ratio 1.1 L Tumor Marker AFP 12.50 H Impressions Impression: Worsening liver function test Still would have a second attempt at MRCP if) the patient shortness of breath improves ABG Interpretation ABG results: 07/20/25 03:23 ABG pH 7.45 ABG pCO2 44 ABG pO2 69 L ABG HCO3 30 H ABG O2 Saturation 95 ABG Base Excess 6 H Assessment & Plan A&P Narrative # Abnormal liver function tests most likely due to cirrhotic liver disease worsening cholestasis and thrombocytopenia CBD 10 mm on abdominal ultrasound imaging It would be prudent to get an MRCP to make sure there is no obstruction of stricture of the distal CBD although there is no intrahepatic biliary ductal dilatation Plan MRCP follow liver function tests patient not a candidate for liver transplant If the MRCP shows clear obstruction Stenting of the CBD might be helpful I also had a long discussion with the 2 sons and the family members and nephew nieces And told them that prognosis is extremely poor this start thinking of comfort care hospice care But that decision will be made after the MRCP results are known Thank you very much for the opportunity to participate in the care of this patient Time Spent With Patient Time: Total time spent is greater than 50% in coordination of care (as documented) at patient's floor/unit and/or counseling patient:
--- NOTE | 2025-07-21 18:45 | PC.NURSE ---
rectal tube came out, I called Dr. Mack who said to insert another
[2025-07-21] MEDS: HYDROmorphone INJ 2 MG/ML VIAL 0.25 MG IVP (19:26)
--- NOTE | 2025-07-21 19:50 | PC.NURSE ---
dr montero and dr castellon notified and came to bedside regarding patient complaining of 10/10 abdominal pain still after receiving dilaudid and having shortness of breath and agitation. Drs did an assessment and stated they would look at her chart and make decisions. Family at bedside updated.
[2025-07-21 19:58] LABS: Sodium 155 mMol/L (136-145)
[2025-07-21] MEDS: INSULIN NPH 1 UNIT/0.01 ML (PER UNIT) 20 UNIT SC (21:05)
[2025-07-21] MEDS: HYDROmorphone INJ 2 MG/ML VIAL 1 MG IVP (21:05)
[2025-07-21] MEDS: SOTALOL HCL 80 MG TABLET NG (21:06)
--- NOTE | 2025-07-21 23:00 | EKG_ITS ---
[facility] Test Date: 2025-07-21 Pat Name: ADARSH LEAL Department: Room: S364A Gender: Female Motion Study Analyst: MAINE : 1950 Requested By: Cathleen Hylton Order Number: [id number] Reading MD: Cathleen Hylton Measurements Intervals [place] Rate: 83 P: 40 MS: 178 QRS: 31 QRSD: 82 T: -16 QT: 376 QTc: 443 Interpretive Statements SINUS RHYTHM WITH FREQUENT SUPRAVENTRICULAR PREMATURE COMPLEXES LOW QRS VOLTAGE IN PRECORDIAL LEADS POSSIBLE ANTERIOR MYOCARDIAL INFARCTION , PROBABLY OLD ABNORMAL RHYTHM ECG Compared to ECG 07/20/2025 14:23:15 Low QRS voltage now present Atrial fibrillation no longer present Myocardial infarct finding still present /store/S0/[id number]/[id number].pdf
--- NOTE | 2025-07-21 23:01 | PC.NURSE ---
spoke to dr lombardo regarding pts telemetry reading going in and out of a-fib HR 90-[address]. [address] order for stat EKG
--- NOTE | 2025-07-21 23:23 | PC.NURSE ---
EKG was taken, dr castellon read results, no new orders at this time.
[2025-07-22] VITALS (8 sets, daily range): BP systolic 118–146; BP diastolic 57–70; PULSE 80–112; RESP 18–25; TEMP 36.3–36.8; O2SAT 88–98; BMI 35.4
[2025-07-22] MEDS: INSULIN LISPRO (AdmeLOG) 1 UNIT/0.01 ML UNIT SC ×2 (00:13→05:25)
[2025-07-22] MEDS: INSULIN LISPRO (AdmeLOG) 1 UNIT/0.01 ML UNIT 10 UNIT SC ×2 (00:14→05:26)
--- NOTE | 2025-07-22 00:22 | PC.NURSE ---
Dr lombardo notified that pt had 30 seconds of a flutter and 3 second pauses. Pt currently in sinus rhythym with occasional pauses. states she will call back once she looks at cardiac strips.
[2025-07-22] MEDS: Magnesium Sulfate 2 GM Ivpb 2 GM/50 ML BAG IV (00:33)
[2025-07-22 00:59] LABS: Sodium 155 mMol/L (136-145)
--- NOTE | 2025-07-22 01:20 | PD.EVENT ---
Documentation for date of: 07/22/25 Event Note Event Note: Resident physician was notified regarding patient having pauses on clinical research monitor, rhythm strip at 12:07 AM along with twelve-lead EKG following that was consistent with sick sinus syndrome for which sotalol was discontinued. No further intervention deemed necessary at this time, will notify day team of overnight event for possible need for ablation vs pacemaker placement if deemed appropriate by cardiology.
[2025-07-22] MEDS: LACTULOSE SYRUP 20 GM/30 ML UDC NG (05:25)
[2025-07-22 05:39] LABS: Basophils # (Auto) 0.1 Thou/mm3 (0.0-0.2); Basophils % (Auto) 1 % (0-2.5); Eosinophils # (Auto) 0.4 Thou/mm3 (0.0-0.5); Eosinophils % (Auto) 4 % (0-10); Hematocrit 31.7 % (36.0-46.0); Hemoglobin 9.8 g/dL (12.0-16.0); Immature Granulocytes Auto 0.11 Thou/mm3 (0.00-0.00); Lymphocytes # (Auto) 0.6 Thou/mm3 (1.0-4.8); Lymphocytes % (Auto) 7 % (10-50); Mean Corpuscular HGB Conc 30.9 g/dl (31.0-37.0); Mean Corpuscular Hemoglobin 30.4 pg (25.0-35.0); Mean Corpuscular Volume 98 fL (80-100); Monocytes # (Auto) 1.2 Thou/mm3 (0.0-0.8); Monocytes % (Auto) 15 % (0-12); Neutrophils # (Auto) 5.8 Thou/mm3 (1.8-7.7); Neutrophils % (Auto) 72 % (37-80); Nucleated Red Blood Cell # 0.02 Thou/mm3 (0.00-0.00); Nucleated Red Blood Cell % 0 /100 WBC (0); Platelet Count 83 Thou/mm3 (140-440); RDW Standard Deviation 63.0 fL (36.4-46.3); Red Blood Count 3.22 Miln/mm3 (4.00-5.20); White Blood Count 8.1 Thou/mm3 (3.6-11.0)
[2025-07-22 06:42] LABS: Alanine Aminotransferase 90 U/L (10-49); Albumin, Serum 3.1 gm/dL (3.4-4.8); Albumin/Globulin Ratio 1.0 (1.2-2.2); Alkaline Phosphatase 161 U/L (46-116); Anion Gap 10 (7-16); Aspartate Amino Transferase 138 U/L (0-34); BUN/Creatinine Ratio 51 Ratio (12-20); Blood Urea Nitrogen 56 mg/dL (9-23); Calcium 9.8 mg/dL (8.3-10.6); Calcium (Corrected) 10.5 mg/dL (8.5-10.1); Carbon Dioxide 29.2 mMol/L (20.0-31.0); Chloride 114 mMol/L (98-107); Creatinine (Component) 1.1 mg/dL (0.6-1.3); Estimated Creatinine Clearance 40.9 mL/min (>60); Globulin 3.0 gm/dL (2.3-3.5); Glucose 263 mg/dL (74-106); Magnesium 2.8 mg/dL (1.6-2.6); Osmolality,Calculated 328 (275-295); Phosphorous 4.8 mg/dL (2.4-5.1); Potassium 4.5 mMol/L (3.4-5.1); Sodium 153 mMol/L (136-145); Total Protein 6.1 gm/dL (5.7-8.2); eGFR 53 See Note
[2025-07-22 06:51] LABS: Bilirubin,Total 24.0 mg/dL (0.3-1.2)
[2025-07-22] MEDS: HYDROmorphone INJ 2 MG/ML VIAL 0.25 MG IVP (07:28)
--- NOTE | 2025-07-22 08:35 | ESPR_ITS ---
<Statement entered by Kat Hargrove MD - 07/22/25 17:33> Goals of care is held with Pt's 2 sons and brothers, due to ongoing poor prognosis, with no clinical improvement Pt's family have decided to start comfort care. Patient was seen and examined by me personally. I have directly supervised and reviewed documentation by the team resident and agree with its findings. ------- Plan of care was discussed with the attending, Dr. Deon Hargrove, PGY-2 Documentation for date of: 07/22/25 Subjective Subjective Interval history: * A goals of care discussion was conducted today with the patient's family, who decided on comfort care which was initiated today 07/22/2025. Exam Vital Signs Temp Pulse Resp BP Pulse Ox O2 Del Method O2 Flow Rate 98.3 F 85 20 118/58 L 95 Nasal Cannula 3 07/22/25 08:00 07/22/25 08:00 07/22/25 08:00 07/22/25 08:00 07/22/25 08:00 07/22/25 08:00 07/22/25 08:00 FiO2 85 07/20/25 22:51 Narrative Exam General: Jaundiced. Nasal feeding tube in place. Ill-appearing woman. Neurologic: GCS 15. Alert and oriented x1, no gross neurological deficit, and patient able to move all 4 extremities. HEENT: Scleral icterus. Normocephalic, atraumatic. Pupils reactive to light. Heart: Tachycardic, regular rhythm. Lungs: Clear to auscultation bilaterally with no wheezing or crackles. Abdomen: Distended, ascites, apparent tinea infections bilaterally at the hips. Extremities: 1+ pitting edema in the lower extremities bilaterally. 2+ radial and dorsalis pedis pulses bilaterally. Skin: Jaundiced. Objective Labs 07/22/25 05:18 07/22/25 05:18 Labs: Laboratory Results - last 24 hr 07/20/25 07/21/25 07/21/25 03:23 14:01 19:15 WBC RBC Hgb Hct MCV MCH MCHC RDW Std Deviation Plt Count Neut % (Auto) Lymph % (Auto) Centre % (Auto) Eos % (Auto) Baso % (Auto) Neut # (Auto) Lymph # (Auto) Centre # (Auto) Eos # (Auto) Baso # (Auto) Immature Gran # (Auto) Absolute Nucleated RBC Immature Gran % Nucleated RBC % Sodium 155 H 155 H Potassium 4.4 D Chloride 116 H Carbon Dioxide 27.0 Anion Gap 12 BUN 53 H Creatinine 0.6 Estim Creat Clear Calc 75.0 eGFR > 60 BUN/Creatinine Ratio 88 H Glucose 162 H Calculated Osmolality 325 H Calcium 8.9 Corrected Calcium 9.5 Phosphorus 2.7 Magnesium Total Bilirubin AST ALT Alkaline Phosphatase Total Protein Albumin 3.2 L Globulin Albumin/Globulin Ratio Tumor Marker AFP 12.50 H 07/22/25 07/22/25 00:37 05:18 WBC 8.1 RBC 3.22 L Hgb 9.8 L Hct 31.7 L MCV 98 MCH 30.4 MCHC 30.9 L RDW Std Deviation 63.0 H Plt Count 83 L Neut % (Auto) 72 Lymph % (Auto) 7 L Centre % (Auto) 15 H Eos % (Auto) 4 Baso % (Auto) 1 Neut # (Auto) 5.8 Lymph # (Auto) 0.6 L Centre # (Auto) 1.2 H Eos # (Auto) 0.4 Baso # (Auto) 0.1 Immature Gran # (Auto) 0.11 H Absolute Nucleated RBC 0.02 H Immature Gran % 1 H Nucleated RBC % 0 Sodium 155 H 153 H Potassium 4.5 Chloride 114 H Carbon Dioxide 29.2 Anion Gap 10 BUN 56 H Creatinine 1.1 D Estim Creat Clear Calc 40.9 L eGFR 53 L BUN/Creatinine Ratio 51 H Glucose 263 H D Calculated Osmolality 328 H Calcium 9.8 Corrected Calcium 10.5 H Phosphorus 4.8 Magnesium 2.8 H Total Bilirubin 24.0 H* D AST 138 H ALT 90 H Alkaline Phosphatase 161 H Total Protein 6.1 Albumin 3.1 L Globulin 3.0 Albumin/Globulin Ratio 1.0 L Tumor Marker AFP ABG Interpretation ABG results: 07/20/25 03:23 ABG pH 7.45 ABG pCO2 44 ABG pO2 69 L ABG HCO3 30 H ABG O2 Saturation 95 ABG Base Excess 6 H Quality Measures Quality Measures VTE prophylaxis (SCDs) Advance care planning discussed with:: child Assessment & Plan Assessment Current Active Medications: Generic Name Dose Route Start Last Admin Trade Name Freq PRN Reason Stop Dose Admin Acetaminophen 650 mg 07/20/25 02:49 Acetaminophen 325 Mg Tablet PO 08/19/25 02:48 Q6H PRN Fever >101.4 or pain 1-3 Albuterol/Ipratropium 3 ml 07/20/25 03:01 Albuterol/Ipratropium (Duoneb) Rt Talya 3 Ml Nebu INH 08/19/25 06:59 Q6HRRT PRN wheezing Bumetanide 1 mg 07/21/25 16:20 07/21/25 17:10 Bumetanide 0.5 Mg Tablet NG 08/20/25 16:19 1 mg QDAY PABLO Administration Cholestyramine Resin 1 pkt 07/20/25 10:00 07/21/25 21:04 Cholestyramine/Sucrose 1 Pkt Ea PO 08/19/25 09:59 1 pkt BID PABLO Administration Dextrose 25 ml 07/20/25 02:58 Dextrose 50%-Water Inj 50 Ml Syringe IV 08/19/25 02:57 Q15MIN PRN BG 50-70 responsive npo pt Dextrose 50 ml 07/20/25 02:58 Dextrose 50%-Water Inj 50 Ml Syringe IV 08/19/25 02:57 Q15MIN PRN BG <50 OR BG <70 & pt unresponsive Glucagon 1 mg 07/20/25 02:58 Glucagon Inj 1 Mg Vial IM Q15MIN PRN BG <70, and no IV access Hydromorphone HCl 0.25 mg 07/20/25 16:04 07/22/25 07:28 Hydromorphone Inj 2 Mg/Ml Vial IVP 07/25/25 03:07 0.25 mg Q4HR PRN Administration severe pain 7-10 Dextrose 1,000 mls @ 70 mls/hr 07/22/25 01:55 07/22/25 03:01 D5w IV 08/21/25 01:54 Not Given .[id number] PABLO Insulin Human Lispro 0 unit 07/20/25 03:00 07/22/25 05:25 Insulin Lispro (Admelog) 1 Unit/0.01 Ml Unit SC 08/19/25 02:59 3 unit Q6HR PABLO Administration Protocol Insulin Human Lispro 10 unit 07/20/25 06:00 07/22/25 05:26 Insulin Lispro (Admelog) 1 Unit/0.01 Ml Unit SC 08/19/25 05:59 10 unit Q6HR PABLO Administration Insulin Human NPH 20 unit 07/20/25 09:00 07/21/25 21:05 Insulin Nph 1 Unit/0.01 Ml (Per Unit) SC 08/19/25 08:59 20 unit BID PABLO Administration Lactulose 20 gm 07/21/25 14:00 07/22/25 05:25 Lactulose Syrup 20 Gm/30 Ml Udc NG 08/20/25 13:59 20 gm TID PABLO Administration Protocol Ondansetron HCl 4 mg 07/20/25 02:49 Ondansetron Inj 2 Mg/Ml Inj 2 Ml IVP 08/19/25 02:48 Q6H PRN NAUSEA OR VOMITING Protocol Pantoprazole Sodium 40 mg 07/20/25 09:00 07/21/25 08:38 Pantoprazole Inj 40 Mg Vial IVP 08/19/25 08:59 40 mg QDAY PABLO Administration Rifaximin 550 mg 07/20/25 03:00 07/21/25 21:06 Rifaximin 550 Mg Tablet PO 07/27/25 02:59 550 mg BID PABLO Administration Plan Summary: [facility] course: The patient is a 74-year-old female with a history of atrial fibrillation, liver cirrhosis, invasive ductal breast carcinoma (right) s/p mastectomy, HLD, T2DM, hemorrhoids, and osteoporosis was admitted to [facility] on 07/05/2025 for management of septic and hemorrhagic shock with hypothermia requiring pressors and massive transfusion protocol plus Dario hugger respectively. FOBT was positive however given patient's history of hemorrhoids another source of bleeding was suspected due to increasing size of her abdomen and large pulse pressure. Ultrasound of the abdomen showed fluid that was sufficient for paracentesis. Prior to paracentesis, patient became unstable requiring intubation for stabilization and CTA abdomen was performed which showed suspected abdominal bleed with liver lesion. It was found that patient had 5.6 x 5.5 cm enhancing right lower lobe liver lesion with extravasation of the contrast into the hemorrhage being located at the liver and surgeon was consulted and it was recommended that patient will need higher care facility for embolization. Patient was closely monitored for transfusion protocol and was transferred to [facility] in stable condition. Patient was transferred to [facility] for IR embolization for massive bleeding from her liver lesion on 07/06/2025. She was transfered back to [facility] ICU on 07/20/2025 and downgraded to the floors the same day.. #Confort care A goals of care discussion was initiated with the patient's family including her 2 sons. Also present was the social insurance adviser, nurse, senior resident, and attending physician. We reviewed the patient's hospital course, ongoing management and potential risks and benefits of any aggressive treatments and/or interventions. All treatment options including full treatment, comfort care, and hospice care were discussed at length. The family was given time to ask questions and all of their questions were answered to satisfaction with understanding of the patient's poor prognosis. The family made the decision to transition to comfort care care with direct focus on comfort and symptom control. The patient's family showed good understanding of what comfort care is and comfort care was initiated. Plan: * Lorazepam 1 mg every hour as needed * Lorazepam 0.5 mg IV every 15 minutes as needed * Morphine drip 1 mg/h as needed * Morphine 2 mg IV every 30 minutes as needed * Scopolamine 1 mg topical every 3 days as needed #Acute encephalopathy secondary to #Acute liver failure secondary to #Liver mass #Elevated Total Bilirubin #Jaundice #CASTANEDA cirrhosis #Bleeding liver lesion possible hepatocellular carcinoma status post IR embolization #Coagulopathy #A-fib #3rd Degree Heart Block #Hypernatremia #Hyperchloremia #Acute hypoxic respiratory failure (Resolving) #Vascular congestion #Acute anemia secondary to #Hemorrhagic shock (Resolved) #Hypercalcemia #Occlusive thrombus superficial left cephalic vein #Hyperlipidemia #History of asthma #Tube feeds #History of right invasive Ductal breast cancer s/p mastectomy #Thrombocytopenia due to liver cirrhosis #History of type 2 diabetes #Concern for aspiration ammonia #Concern for abdominal infection #Sepsis (Resolved) Hospital Maintenance: DVT prophylaxis: SCDs Núñez: PLACED Lines: Peripherals CODE STATUS: DNR/DNI Disposition: Patient was initiated on comfort care. Patient was seen and discussed with my attending physician Dr. Martina DELGADILLO and my senior resident Dr. Delvin DELGADILLO PGY-2. Luis Rodríguez DO PGY-1. Attending Provider Attestation/Addendum I have seen and examined the patient. I was physically present for the blair portions of the services provided including history, physical exam, diagnosis, treatment plans and orders. I agree with assessment and plan of care as documented by residents. Patient seen and examined at bedside this morning. Continues to be confused, more lethargic today compared to yesterday. Unable to answer question or follow commands. Continues to be on 3 L nasal cannula. Noted abdominal distention, has bilateral pedal edema. Overnight, patient had frequent PACs and sotalol was discontinued. Sodium level slightly improved to 153, noted to have worsening BUN/creatinine 56/1.1. Had a family discussion regarding patient's condition, guarded prognosis, management options. Family opted for comfort care and patient started on comfort care measures. Even though this this note was carefully revised there may still be minor errors in boat finisher due to voice recognition software. Mario Mack MD
[2025-07-22] MEDS: INSULIN NPH 1 UNIT/0.01 ML (PER UNIT) 20 UNIT SC (09:15)
--- NOTE | 2025-07-22 09:26 | PD.RESEVENT ---
Documentation for date of: 07/22/25 Event Note Event Note: A goals of care discussion was initiated with the patient's family including her 2 sons and brothers. Also present was the director of social work, nurse, senior resident, and attending physician. We reviewed the patient's hospital course, ongoing management and potential risks and benefits of any aggressive treatments and/or interventions. All treatment options including full treatment, comfort care, and hospice care were discussed at length. The family was given time to ask questions and all of their questions were answered to satisfaction with understanding of the patient's poor prognosis despite aggressive intervention and on going treatment without improvement. The family made the decision to transition to comfort care with direct focus on comfort and symptom control. The patient's family showed good understanding of what comfort care is and comfort care was initiated on 07/21/2025. Patient was seen and discussed with my attending physician Dr. Martina DELGADILLO and my senior resident Dr. Delvin DELGADILLO PGY-2. Luis Rodríguez DO PGY-1.
[2025-07-22] MEDS: DEXTROSE 5%-WATER 1,000 ML 70 ML IV (09:33)
[2025-07-22] MEDS: CHOLESTYRAMINE/SUCROSE 1 PKT EA PO (09:34)
[2025-07-22] MEDS: BUMETANIDE INJ 0.25 MG/ML VIAL 4 ML 2 MG IVP (09:34)
[2025-07-22 09:53] LABS: B-Type Natriuretic Peptide 598 pg/mL (0-100)
--- NOTE | 2025-07-22 09:58 | PC.SS ---
rounding note: MRCP pending today. Goals of care with patient's sons who are alt decision makers.
--- NOTE | 2025-07-22 12:19 | PC.SS ---
GOC discussion held. Medical team provided patient's family with overview on patient's condition and prognosis. Medical team relayed to family that patient is experiencing acute kidney injury, fluid overload, liver mass and multi organ failure. Due to various medical condition patient's family has opted to transition the patient to comfort care measures. Discussed no longer to pursue curative treatment. Family acknowledged plan to implement comfort measures only. CRIMPER OPERATOR updated special events planner.
[2025-07-22] MEDS: Morphine IV Drip 100mg/100ml 100 ML IV (13:00)
--- NOTE | 2025-07-22 13:39 | ESPR_ITS ---
<Statement entered by Reji Hidalgo MD - 07/23/25 15:45> I personally examined evaluate the patient spoke to the family patient was has multiple prior problems including metastatic carcinoma with jaundice patient's family decided to make her comfort care patient was incidentally went back to sinus rhythm cardiac deluca. I agree with treatment plan recommendation as documented by Dr. Maury Corey PGY1. Will sign off the case if the patient's comfort care only Documentation for date of: 07/22/25 Subjective Subjective Interval history: Patient was made comfort care on 07/21/25. Exam Vital Signs Temp Pulse Resp BP Pulse Ox O2 Del Method O2 Flow Rate 97.5 F 93 20 143/57 H 88 L Nasal Cannula 3 07/22/25 11:32 07/22/25 12:00 07/22/25 11:32 07/22/25 11:32 07/22/25 11:32 07/22/25 11:32 07/22/25 11:32 FiO2 85 07/20/25 22:51 Narrative Exam General: A/O x1, icteric Eyes: PERRL, EOMI. Signficant icterus, vision grossly intact. Ears: No ear pain, no ear discharge, Hearing grossly intact. Nose: No nasal discharge. Mouth/Throat: Moist mucous membranes, no redness, no lesions. Neck: Neck supple, non-tender, no cervical lymphadenopathy. Lungs: Clear JIM to auscultation and percussion, No accessory muscle use. Cardio: Normal S1/S2, regular rhythm, no murmurs, no JVD or carotid bruits. Abdomen: Significant distension Extremities: Symmetrical, no significant deformities, no peripheral edema , non- tender, peripheral pulses present. Skin: No rashes, no lesions, warm to touch. Neuro: No focal neurological deficits. Psych: Cooperative, A&Ox1. Objective Labs 07/22/25 05:18 07/22/25 05:18 Labs: Laboratory Results - last 24 hr 07/21/25 07/21/25 07/22/25 14:01 19:15 00:37 WBC RBC Hgb Hct MCV MCH MCHC RDW Std Deviation Plt Count Neut % (Auto) Lymph % (Auto) Whitman % (Auto) Eos % (Auto) Baso % (Auto) Neut # (Auto) Lymph # (Auto) Whitman # (Auto) Eos # (Auto) Baso # (Auto) Immature Gran # (Auto) Absolute Nucleated RBC Immature Gran % Nucleated RBC % Sodium 155 H 155 H 155 H Potassium 4.4 D Chloride 116 H Carbon Dioxide 27.0 Anion Gap 12 BUN 53 H Creatinine 0.6 Estim Creat Clear Calc 75.0 eGFR > 60 BUN/Creatinine Ratio 88 H Glucose 162 H Calculated Osmolality 325 H Calcium 8.9 Corrected Calcium 9.5 Phosphorus 2.7 Magnesium Total Bilirubin AST ALT Alkaline Phosphatase B-Natriuretic Peptide Total Protein Albumin 3.2 L Globulin Albumin/Globulin Ratio 07/22/25 05:18 WBC 8.1 RBC 3.22 L Hgb 9.8 L Hct 31.7 L MCV 98 MCH 30.4 MCHC 30.9 L RDW Std Deviation 63.0 H Plt Count 83 L Neut % (Auto) 72 Lymph % (Auto) 7 L Whitman % (Auto) 15 H Eos % (Auto) 4 Baso % (Auto) 1 Neut # (Auto) 5.8 Lymph # (Auto) 0.6 L Whitman # (Auto) 1.2 H Eos # (Auto) 0.4 Baso # (Auto) 0.1 Immature Gran # (Auto) 0.11 H Absolute Nucleated RBC 0.02 H Immature Gran % 1 H Nucleated RBC % 0 Sodium 153 H Potassium 4.5 Chloride 114 H Carbon Dioxide 29.2 Anion Gap 10 BUN 56 H Creatinine 1.1 D Estim Creat Clear Calc 40.9 L eGFR 53 L BUN/Creatinine Ratio 51 H Glucose 263 H D Calculated Osmolality 328 H Calcium 9.8 Corrected Calcium 10.5 H Phosphorus 4.8 Magnesium 2.8 H Total Bilirubin 24.0 H* D AST 138 H ALT 90 H Alkaline Phosphatase 161 H B-Natriuretic Peptide 598 H* Total Protein 6.1 Albumin 3.1 L Globulin 3.0 Albumin/Globulin Ratio 1.0 L ABG Interpretation ABG results: 07/20/25 03:23 ABG pH 7.45 ABG pCO2 44 ABG pO2 69 L ABG HCO3 30 H ABG O2 Saturation 95 ABG Base Excess 6 H Quality Measures Quality Measures VTE prophylaxis (SCDs) Advance care planning discussed with:: other Assessment & Plan Assessment Current Active Medications: Generic Name Dose Route Start Last Admin Trade Name Freq PRN Reason Stop Dose Admin Acetaminophen 650 mg 07/20/25 02:49 Acetaminophen 325 Mg Tablet PO 08/19/25 02:48 Q6H PRN Fever >101.4 or pain 1-3 Albuterol/Ipratropium 3 ml 07/20/25 03:01 Albuterol/Ipratropium (Duoneb) Rt Talya 3 Ml Nebu INH 08/19/25 06:59 Q6HRRT PRN wheezing Glucagon 1 mg 07/20/25 02:58 Glucagon Inj 1 Mg Vial IM Q15MIN PRN BG <70, and no IV access Hydromorphone HCl 0.25 mg 07/20/25 16:04 07/22/25 07:28 Hydromorphone Inj 2 Mg/Ml Vial IVP 07/25/25 03:07 0.25 mg Q4HR PRN Administration severe pain 7-10 Morphine Sulfate 100 mls @ 1 mls/hr 07/22/25 11:56 07/22/25 13:00 Morphine Sulfate Iv Drip 100mg/100ml IV 07/27/25 11:55 1 mg/hr .Q24H PRN 1 mls/hr PAIN (COMFORT CARE) Administration Protocol 1 MG/HR Lorazepam 1 mg 07/22/25 11:56 Lorazepam 2 Mg/Ml Vial IVP 07/27/25 11:55 Q1HR PRN ANXIETY Lorazepam 0.5 mg 07/22/25 12:02 Lorazepam 2 Mg/Ml Vial IVP 07/27/25 12:01 Q15MIN PRN ANXIETY Morphine Sulfate 2 mg 07/22/25 11:56 Morphine Sulf Inj 4 Mg/Ml Vial IVP 07/27/25 11:55 Q30M PRN PAIN Ondansetron HCl 4 mg 07/20/25 02:49 Ondansetron Inj 2 Mg/Ml Inj 2 Ml IVP 08/19/25 02:48 Q6H PRN NAUSEA OR VOMITING Protocol Scopolamine 1 mg 07/22/25 12:00 Scopolamine 1 Mg Tdsy TOP 08/21/25 11:59 Q3D PABLO Plan Patient is 74-year-old F with PMH of atrial fibrillation, liver cirrhosis and liver mass, invasive ductal breast carcinoma (right) s/p mastectomy, HLD, T2DM, hemorrhoids, and osteoporosis transferred back from [place] s/p IR embolization for liver lesion and massive transfusion protocol. #A-fib Patient developed A-fib with RVR yesterday afternoon confirmed by EKG, amiodarone drip started. Plan: Comfort care initiated per primary team #Acute encephalopathy secondary to #Acute liver failure secondary to #Liver mass #Elevated Total Bilirubin #Jaundice #CASTANEDA cirrhosis #Bleeding liver lesion possible hepatocellular carcinoma status post IR embolization #Coagulopathy #Acute anemia #Hemorrhagic shock (Resolved) #Occlusive thrombus superficial left cephalic vein #Acute hypoxic respiratory failure (Resolving) #Vascular congestion #History of asthma #Pain #COLE #Hypernatremia and hyperchloremia #Left abdominal bruising #History of type 2 diabetes #Left upper extremity swelling complaint for IV extravasation, stable #?Occlusive thrombus left cephalic vein per [place] #Bilateral lower extremity pain #Concern for aspiration ammonia #Concern for abdominal infection #Sepsis Per primary team This case was discussed with my attending physician, Dr. Hidalgo.. Piter Corey, PGY1
[2025-07-22] MEDS: MORPHINE SULF INJ 4 MG/ML VIAL 2 MG IVP ×2 (14:32→15:17)
[2025-07-22] MEDS: SCOPOLAMINE 1 MG TDSY TOP (14:35)
--- NOTE | 2025-07-22 17:45 | PD.IMPROG ---
Documentation for date of: 07/22/25 Subjective Subjective Interval history: Worsening liver function test with a total bilirubin now at 24.7 Long discussion with the family by the internal medicine team and the patient has been transitioned to comfort care Exam Vital Signs Temp Pulse Resp BP Pulse Ox O2 Del Method O2 Flow Rate 97.7 F 90 25 H 140/58 H 92 L Nasal Cannula 3 07/22/25 16:00 07/22/25 16:00 07/22/25 16:00 07/22/25 16:00 07/22/25 16:00 07/22/25 16:00 07/22/25 16:00 FiO2 85 07/22/25 16:00 Objective Labs 07/22/25 05:18 07/22/25 05:18 Labs: Laboratory Results - last 24 hr 07/21/25 07/22/25 07/22/25 19:15 00:37 05:18 WBC 8.1 RBC 3.22 L Hgb 9.8 L Hct 31.7 L MCV 98 MCH 30.4 MCHC 30.9 L RDW Std Deviation 63.0 H Plt Count 83 L Neut % (Auto) 72 Lymph % (Auto) 7 L Frederick % (Auto) 15 H Eos % (Auto) 4 Baso % (Auto) 1 Neut # (Auto) 5.8 Lymph # (Auto) 0.6 L Frederick # (Auto) 1.2 H Eos # (Auto) 0.4 Baso # (Auto) 0.1 Immature Gran # (Auto) 0.11 H Absolute Nucleated RBC 0.02 H Immature Gran % 1 H Nucleated RBC % 0 Sodium 155 H 155 H 153 H Potassium 4.5 Chloride 114 H Carbon Dioxide 29.2 Anion Gap 10 BUN 56 H Creatinine 1.1 D Estim Creat Clear Calc 40.9 L eGFR 53 L BUN/Creatinine Ratio 51 H Glucose 263 H D Calculated Osmolality 328 H Calcium 9.8 Corrected Calcium 10.5 H Phosphorus 4.8 Magnesium 2.8 H Total Bilirubin 24.0 H* D AST 138 H ALT 90 H Alkaline Phosphatase 161 H B-Natriuretic Peptide 598 H* Total Protein 6.1 Albumin 3.1 L Globulin 3.0 Albumin/Globulin Ratio 1.0 L Impressions Impression: End-stage liver disease with ascites and advanced portal hypertension with worsening LFTs Multiple other comorbidities Agree with transitioning to comfort care ABG Interpretation ABG results: 07/20/25 03:23 ABG pH 7.45 ABG pCO2 44 ABG pO2 69 L ABG HCO3 30 H ABG O2 Saturation 95 ABG Base Excess 6 H Assessment & Plan A&P Narrative # Abnormal liver function tests most likely due to cirrhotic liver disease worsening cholestasis and thrombocytopenia CBD 10 mm on abdominal ultrasound imaging It would be prudent to get an MRCP to make sure there is no obstruction of stricture of the distal CBD although there is no intrahepatic biliary ductal dilatation Plan MRCP follow liver function tests patient not a candidate for liver transplant If the MRCP shows clear obstruction Stenting of the CBD might be helpful I also had a long discussion with the 2 sons and the family members and nephew nieces And told them that prognosis is extremely poor this start thinking of comfort care hospice care But that decision will be made after the MRCP results are known Thank you very much for the opportunity to participate in the care of this patient Time Spent With Patient Time: Total time spent is greater than 50% in coordination of care (as documented) at patient's floor/unit and/or counseling patient:
[2025-07-23 00:56] VITALS: BP 105/49; PULSE 85; RESP 12; TEMP 36.6; O2SAT 70
--- NOTE | 2025-07-23 02:10 | PC.NURSE ---
called by family at bedside to assess patient, in room with patient at 0150, patient appeared to have no respiration, vitals attempted to be taken but none detected, no radial pulses detected, called Dr. Hylton at 0155, doctor at bedside at 0159 and assessed patient with TOD 0203. Family at bedside.
--- NOTE | 2025-07-23 02:10 | PD.DPN ---
Documentation for date of: 07/23/25 Pronouncement Note Date and Time of Date of : 07/23/25 Time of : 02:03 PCOD Preliminary cause of : Cardiopulmonary arrest Summary Additional details: Received call from nurse at 1:55 AM stating patient had on comfort care, requesting confirmation of patient expiration. Patient was seen and examined at the bedside, no pulses could be felt, no cardiac sounds were heard after 1 continuous minute of auscultation, no breath sounds heard, and pupils were fixed and dilated. Patient pronounced at 2:03AM. Additional Data Confirmation of : no pulse, no respirations, no heart sounds and pupils fixed and dilated Family: at bedside Attending/PCP notified?: Yes Attending physician: Dr. Marguerite Tejeda MD Was code activated?: No
--- NOTE | 2025-07-23 04:40 | PC.NURSE ---
wasted morphine drip 77 mL from bag.
--- NOTE | 2025-07-23 08:05 | DES_ITS ---
Documentation for date of: 07/23/25 Summary Date and Time Date of admission: 07/20/25 02:29 Date of : 07/23/25 Time of : 02:03 Summary Hospital Course: #Acute encephalopathy secondary to #Acute liver failure secondary to #Liver mass #Elevated Total Bilirubin #Jaundice #CASTANEDA cirrhosis #Bleeding liver lesion possible hepatocellular carcinoma status post IR embolization #Coagulopathy #A-fib #Heart Block #Hypernatremia #Hyperchloremia #Acute hypoxic respiratory failure #Vascular congestion #Acute anemia secondary to #Hemorrhagic shock #Hypercalcemia #Occlusive thrombus superficial left cephalic vein #Hyperlipidemia #History of asthma #Tube feeds #History of right invasive Ductal breast cancer s/p mastectomy #Thrombocytopenia due to liver cirrhosis #History of type 2 diabetes #Concern for aspiration #Concern for abdominal infection #Sepsis Patient is a 74-year-old female with a history of atrial fibrillation, liver cirrhosis, invasive ductal breast carcinoma (right) s/p mastectomy, HLD, T2DM, hemorrhoids, and osteoporosis was admitted to [facility] on 07/05/2025 for management of septic and hemorrhagic shock with hypothermia requiring pressors and massive transfusion protocol plus Dario hugger respectively. FOBT was positive however given patient's history of hemorrhoids another source of bleeding was suspected due to increasing size of her abdomen and large pulse pressure. Ultrasound of the abdomen showed fluid that was sufficient for paracentesis. Prior to paracentesis, patient became unstable requiring intubation for stabilization and CTA abdomen was performed which showed suspected abdominal bleed with liver lesion. It was found that patient had 5.6 x 5.5 cm enhancing right lower lobe liver lesion with extravasation of the contrast into the hemorrhage being located at the liver and surgeon was consulted and it was recommended that patient will need higher care facility for embolization. Patient was closely monitored for transfusion protocol and was transferred to [facility] in stable condition. She was transferred to [facility] for IR embolization for massive bleeding from liver lesion om 07/06. During [facility] hospital stay, patient remained stable initially and their surgeon did not recommend surgical resection of liver lesion due to concern of massive bleeding. On 07/10, they performed paracentesis followed by extubation on 07/11. She was downgraded to medical floors. On 07/13 she went into A-fib RVR after short run of NSVT received multiple boluses of metoprolol and 150 mg amnio which converted her back to sinus rhythm with soft blood pressure and was re-upgraded to ICU and was started on Levophed. On 07/15, A-fib RVR with hypotension and acute hemoglobin drop with elevated lactic acid. She was managed with pressors and massive transfusion protocol in ICU and IR embolization was performed and bruise was found in the left side of the abdomen. On 07/18: Overnight patient's tachycardia self resolved. She was kept on pressors for MAP above 75 for HRS. Urine output started decreasing. She was following commands better in the afternoon. On 07/19: Patient's heart rate was 90s?110s. She was mostly sinus rhythm. MAP goal was 75 with Levophed and vasopressin. CVP was at 6-18, BiPAP, net -1 L with 4 mg IV Bumex x twice daily and Diuril x 3. Diuresis based on CVP and urine output with goal of net -1 L. Insulin drip which was transitioned to subcu insulin. She is transfered back to [facility] off pressors on 07/20/2025 at 3 AM for continuation of care. After admission back in [facility] Patient continued to have encephalopathy, which worsened progressively. She also had hypernatremia which had been difficult to manage despite free water through PEG tube and D5 infusion. Patient had occlusive thrombus on superficial left cephalic vein but was unable to do anticoagulation due to risk of bleeding. She also had features of volume overload and needed diuresis. Bilirubin continued to worsen, last one being 24. MRCP was planned to rule out biliary tree obstruction and differentiate between intrahepatic versus extrahepatic cause of elevated bilirubin. But patient was unable to tolerate the procedure. She had also started developing COLE. Overnight on 07/21/2025, patient also had features of possible heart block. With comorbidities involving multiple organ systems, patient's complicated hospital course, guarded prognosis, goals of care meeting was held on 07/22/2025 with multiple family members including patient's decision maker. Family decided to pursue comfort care. Patient passed overnight while on comfort care and was pronounced at 2:03 AM on 07/23/2025. Additional Data Confirmation of as documented by pronouncing clinician: no pulse, no respirations, no heart sounds and pupils fixed and dilated Family: at bedside Attending physician: Mario Mack MD Was code activated?: No Visit Providers Provider Primary care physician: Physician No Primary/Family Consults: 07/20/25 03:13 Referral Registered Dietitian Routine Comment: for tube feeds. Patient was on isolyte at [place] 07/20/25 03:20 Referral Speech Therapy Routine Comment: 07/20/25 07:25 Referral Wound Care Stat Comment: 07/20/25 14:46 Consult to Gastroenterology Routine Comment: Transfer back from [facility], s/p IR embolization Consulting Provider: Kay Obrien 07/20/25 17:52 Consult to Cardiology Routine Comment: AFib, Family does not want cardioversion/shocks. Consulting Provider: Reji Hidalgo 07/21/25 14:09 Consult to Nephrology Routine Comment: Hypernatremia Consulting Provider: Russ Cardoso 07/22/25 14:59 Referral Dawson Stat Comment: dejon briseno, comfort care Discharge Plan Plan Patient Disposition: Prescriptions/Referrals Referrals: No Primary/Family,Physician [Primary Care Provider] Patient/Caregiver Discharge Instructions Print Language: U[place] Discharge Order Discharge Orders: Discharge (Routine); Ordered 07/23/25 Ordered By: Cathleen Hylton
== END 2025-07-23 02:03 | disposition expired | DRG 871 ==
LOC: S2SX 10:49 → S3NX 07-21 04:15 → S3SX 07-22 12:31
PROVIDERS: Specialist; Student in an Organized Health Care Education/Training Program; Admitting Provider Internal Medicine; Visit Provider Student in an Organized Health Care Education/Training Program
DX: A41.9 Sepsis, unspecified organism (principal); J96.01 Acute respiratory failure with hypoxia; K66.1 Hemoperitoneum; K76.7 Hepatorenal syndrome; K83.1 Obstruction of bile duct; K72.00 Acute and subacute hepatic failure without coma; J90 Pleural effusion, not elsewhere classified; N17.9 Acute kidney failure, unspecified; E87.0 Hyperosmolality and hypernatremia; E87.1 Hypo-osmolality and hyponatremia; K76.6 Portal hypertension; R18.8 Other ascites; I44.2 Atrioventricular block, complete; I82.612 Acute embolism and thrombosis of superficial veins of left upper extremity; I47.20 Ventricular tachycardia, unspecified; E87.20 Acidosis, unspecified; J81.1 Chronic pulmonary edema; R57.8 Other shock; I48.91 Unspecified atrial fibrillation; K76.82 Hepatic encephalopathy; K74.60 Unspecified cirrhosis of liver; E78.5 Hyperlipidemia, unspecified; I10 Essential (primary) hypertension; D69.59 Other secondary thrombocytopenia; I46.9 Cardiac arrest, cause unspecified; R16.0 Hepatomegaly, not elsewhere classified; J45.909 Unspecified asthma, uncomplicated; E11.9 Type 2 diabetes mellitus without complications; E83.52 Hypercalcemia; E87.8 Other disorders of electrolyte and fluid balance, not elsewhere classified; Z85.3 Personal history of malignant neoplasm of breast; Z90.10 Acquired absence of unspecified breast and nipple; S30.11XA Contusion of abdominal wall, initial encounter; S30.13XA Contusion of flank (latus) region, initial encounter; D49.0 Neoplasm of unspecified behavior of digestive system; D64.9 Anemia, unspecified; K82.8 Other specified diseases of gallbladder; K75.81 Nonalcoholic steatohepatitis (NASH); E87.70 Fluid overload, unspecified; Z66 Do not resuscitate; Z51.5 Encounter for palliative care; Z79.83 Long term (current) use of bisphosphonates; Z79.899 Other long term (current) drug therapy
CPT/HCPCS: 36415; 36600; 71045; 76705; 80053; 80069; 81001; 82105; 82140; 82248; 82803; 83605; 83735; 83880; 84100; 84295; 85014; 85018; 85025; 85610; 85730; 86850; 86900; 86901; 87040; 87081; 92526; 92610; 93005; 93225; 93306; 93970; 94660; J0283; J1160; J1171; J1815; J2270; J2405; J2470; J3475; J3480; J3490; J7070; A9270